=== PATIENT | female | born 1975 | race Caucasian/White ===

== ENCOUNTER → 2021-05-23 09:46 | Outpatient (CLI) | payer MEDICAID, SELFPAY ==
[2021-05-23 12:25] LABS: Absolute Lymphocyte Count 2.35 X10^3/uL (0.83-4.51); Absolute Neutrophil Count 5.3 X10^3/uL (2.0-7.7); Basophil# 0.04 X10^3/uL; Basophil% 0.5 % (0-1); Eosinophil# 0.22 X10^3/uL; Eosinophils% 2.6 % (0-5); Hemoglobin 11.7 g/dL (12.0-15.0); Lymphocyte # 2.35 X10^3/ul (0.83-4.51); Lymphocyte % 27.5 % (19-41); Mean Corpuscular Hgb 25.1 pg (27.0-32.0); Mean Corpuscular Volume 83.5 fL (81-99); Mean Platelet Vol. 10.9 fl (6.2-12.0); Monocyte# 0.64 X10^3/uL; Monocyte% 7.5 % (0-10); NRBC Flagged by Analyzer 0 % (0-5); Neutrophil # 5.26 X10^3/uL (2.7-7.7); Neutrophil % 61.7 % (47-70); Platelet Count 321 K/mm3 (150-450); RBC Distribution Width CV 16.2 % (11.6-14.6); RBC Distribution Width SD 48.7 fl (35.1-43.9); Red Blood Count 4.67 M/mm3 (4.2-5.4); White Blood Count 8.5 K/mm3 (4.4-11.0)
[2021-05-23 12:36] LABS: Vitamin D,25 Hydroxy 57.3 ng/mL
== END ==
PROVIDERS: PCP Internal Medicine; Visit Provider Internal Medicine
DX: E55.9 Vitamin D deficiency, unspecified (principal); E11.9 Type 2 diabetes mellitus without complications
CPT/HCPCS: 36415; 82306; 85025

== ENCOUNTER → 2022-12-27 | Outpatient (CLI) | payer MEDICAID, SELFPAY ==
[2022-12-27 12:48] LABS: Absolute Lymphocyte Count 2.32 X10^3/uL (0.83-4.51); Absolute Neutrophil Count 3.3 X10^3/uL (2.0-7.7); Basophil# 0.04 X10^3/uL; Basophil% 0.6 % (0-1); Eosinophil# 0.22 X10^3/uL; Eosinophils% 3.5 % (0-5); Hematocrit 42.6 % (37-47); Hemoglobin 14.5 g/dL (12.0-15.0); Lymphocyte # 2.32 X10^3/ul (0.83-4.51); Lymphocyte % 36.5 % (19-41); Mean Platelet Vol. 10.5 fl (6.2-12.0); Monocyte# 0.44 X10^3/uL; Monocyte% 6.9 % (0-10); NRBC Flagged by Analyzer 0 % (0-5); Neutrophil # 3.33 X10^3/uL (2.7-7.7); Neutrophil % 52.3 % (47-70); Platelet Count 254 K/mm3 (150-450); RBC Distribution Width SD 41.2 fl (35.1-43.9); Red Blood Count 4.53 M/mm3 (4.2-5.4); White Blood Count 6.4 K/mm3 (4.4-11.0)
[2022-12-27 13:18] LABS: ALB/GLOB Ratio 0.9 RATIO (0.9-2.4); AST(SGOT) 14 U/L (15-37); Alanine Aminotransfer ALT/SGPT 18 U/L (13-56); Albumin, Serum 3.5 g/dL (3.2-5.0); Alkaline Phosphatase 56 U/L (45-117); Anion Gap 7 (5-15); BUN 8 mg/dL (7-18); BUN/Creat Ratio 10.5 RATIO (10-20); Calcium,Total 8.9 mg/dL (8.5-10.1); Chloride 104 mmol/L (98-107); Cholesterol 160 mg/dL (200); Creatinine, Serum 0.76 mg/dL (0.55-1.02); EST Glomerular Filtration Rate 88 mL/min (>60); Est Glom Filt Rate - Afr Amer 106 mL/min (>60); Globulin 3.8 g/dL (2.2-4.2); Glucose 117 mg/dL (74-106); High Density Lipoprotein 60 mg/dL; Potassium 3.7 mmol/L (3.5-5.1); Protein, Total 7.3 g/dL (6.4-8.2); Sodium Level 139 mmol/L (136-145); Triglycerides 118 mg/dL; Very Low Density Lipoprotein 24 mg/dL (5-40)
== END | disposition home or self-care (01) ==
LOC: BIMLAB 11:08
PROVIDERS: PCP Internal Medicine; Referring Provider Internal Medicine; Visit Provider Internal Medicine
DX: E78.5 Hyperlipidemia, unspecified (principal)
CPT/HCPCS: 36415; 80053; 80061; 85025

== ENCOUNTER → 2023-01-02 | Outpatient (CLI) | payer MEDICAID, SELFPAY ==
--- NOTE | 2023-01-02 11:47 | US_ITS ---
STUDY: THYROID ULTRASOUND REASON FOR EXAM: Female, 47 years old. Abnormal imaging TECHNIQUE: Ultrasound evaluation of the thyroid was performed with real-time and static paredes-scale imaging. COMPARISON: None. FINDINGS: RIGHT LOBE: The right lobe of the thyroid gland measures 5.2 x 1.6 x 1.2 cm. There is a homogeneous echotexture. There are no demonstrated solid, cystic or complex lesions. Normal-appearing parathyroid gland is visualized measuring 0.6 x 0.7 cm. LEFT LOBE: The left lobe of the thyroid gland measures 5.1 x 1.7 x 1.2 cm. There is a homogeneous echotexture. There are no demonstrated solid, cystic or complex lesions. ISTHMUS: The isthmus measures 2.4 mm. The regional lymph nodes are normal. US/Thyroid IMPRESSION: 1. Normal ultrasound examination of the thyroid. Electronically Signed: Nik Yo MD at 15:54 EDT ,
== END | disposition home or self-care (01) ==
LOC: US 11:46
PROVIDERS: PCP Internal Medicine; Referring Provider Internal Medicine; Visit Provider Internal Medicine
DX: R59.0 Localized enlarged lymph nodes (principal); R93.89 Abnormal findings on diagnostic imaging of other specified body structures
CPT/HCPCS: 76536

== ENCOUNTER → 2024-01-07 | Outpatient (CLI) | payer MEDICAID, SELFPAY ==
[2024-01-07 12:05] LABS: Absolute Lymphocyte Count 2.03 X10^3/uL (0.83-4.51); Absolute Neutrophil Count 6.9 X10^3/uL (2.0-7.7); Basophil# 0.05 X10^3/uL; Basophil% 0.5 % (0-1); Eosinophil# 0.39 X10^3/uL; Eosinophils% 3.9 % (0-5); Hematocrit 42.8 % (37-47); Hemoglobin 14.2 g/dL (12.0-15.0); Lymphocyte # 2.03 X10^3/ul (0.83-4.51); Lymphocyte % 20.4 % (19-41); Mean Corp Hgb Conc 33.2 g/dL (32-36); Mean Corpuscular Hgb 31.2 pg (27.0-32.0); Mean Corpuscular Volume 94.1 fL (81-99); Mean Platelet Vol. 10.4 fl (6.2-12.0); NRBC Flagged by Analyzer 0 % (0-5); Neutrophil # 6.85 X10^3/uL (2.7-7.7); Neutrophil % 68.9 % (47-70); Platelet Count 290 K/mm3 (150-450); RBC Distribution Width CV 11.9 % (11.6-14.6); RBC Distribution Width SD 41.1 fl (35.1-43.9); Red Blood Count 4.55 M/mm3 (4.2-5.4)
[2024-01-07 12:27] LABS: ALB/GLOB Ratio 0.7 RATIO (0.9-2.4); AST(SGOT) 9 U/L (15-37); Alanine Aminotransfer ALT/SGPT 16 U/L (13-56); Albumin, Serum 3.2 g/dL (3.2-5.0); Alkaline Phosphatase 62 U/L (45-117); Anion Gap 5 (5-15); BUN 11 mg/dL (7-18); BUN/Creat Ratio 13.7 RATIO (10-20); Calcium,Total 9.5 mg/dL (8.5-10.1); Chloride 104 mmol/L (98-107); EST Glomerular Filtration Rate 81 mL/min (>60); Est Glom Filt Rate - Afr Amer 99 mL/min (>60); Globulin 4.3 g/dL (2.2-4.2); Glucose 160 mg/dL (74-106); Potassium 4.4 mmol/L (3.5-5.1); Protein, Total 7.5 g/dL (6.4-8.2); Sodium Level 137 mmol/L (136-145)
== END | disposition home or self-care (01) ==
LOC: BIMLAB 09:42
PROVIDERS: PCP Internal Medicine; Referring Provider Internal Medicine; Visit Provider Internal Medicine
DX: Z00.00 Encounter for general adult medical examination without abnormal findings (principal)
CPT/HCPCS: 36415; 80053; 85025

== ENCOUNTER → 2024-04-07 | Outpatient (CLI) | payer MEDICAID, SELFPAY ==
--- NOTE | 2024-04-07 12:34 | RAD_ITS ---
INDICATION: Cough, Chills and Fever EXAMINATION/TECHNIQUE: X-RAY - XR Chest 2 Views COMPARISON: No relevant prior comparison study available FINDINGS: LINES/DEVICES: None. LUNGS: There is ill-defined airspace disease in the left lung base suggesting pneumonia. MEDIASTINUM AND CARDIOVASCULAR STRUCTURES: Cardiac silhouette not enlarged. Central airways and mediastinal contour are unremarkable. BONES AND SOFT TISSUES: Unremarkable. RAD/Chest PA and Lateral IMPRESSION: Left lower lobe pneumonia. Electronically Signed: Kelly Hernadez MD at 1:17 EST ,
[2024-04-07 15:18] LABS: Absolute Neutrophil Count 8.6 X10^3/uL (2.0-7.7); Basophil# 0.05 X10^3/uL; Basophil% 0.5 % (0-1); Eosinophil# 0.04 X10^3/uL; Eosinophils% 0.4 % (0-5); Hematocrit 43.2 % (37-47); Hemoglobin 14.2 g/dL (12.0-15.0); Lymphocyte % 8.6 % (19-41); Mean Corp Hgb Conc 32.9 g/dL (32-36); Mean Corpuscular Hgb 30.7 pg (27.0-32.0); Mean Corpuscular Volume 93.5 fL (81-99); Mean Platelet Vol. 10.7 fl (6.2-12.0); Monocyte% 7.6 % (0-10); NRBC Flagged by Analyzer 0 % (0-5); Neutrophil # 8.58 X10^3/uL (2.7-7.7); Neutrophil % 81.5 % (47-70); Platelet Count 240 K/mm3 (150-450); RBC Distribution Width CV 12.2 % (11.6-14.6); RBC Distribution Width SD 41.7 fl (35.1-43.9); Red Blood Count 4.62 M/mm3 (4.2-5.4); White Blood Count 10.5 K/mm3 (4.4-11.0)
[2024-04-07 16:07] LABS: ALB/GLOB Ratio 0.7 RATIO (0.9-2.4); AST(SGOT) 11 U/L (15-37); Alanine Aminotransfer ALT/SGPT 20 U/L (13-56); Albumin, Serum 3.3 g/dL (3.2-5.0); Alkaline Phosphatase 77 U/L (45-117); Anion Gap 9 (5-15); BUN 9 mg/dL (7-18); BUN/Creat Ratio 11.6 RATIO (10-20); Chloride 98 mmol/L (98-107); Creatinine, Serum 0.78 mg/dL (0.55-1.02); EST Glomerular Filtration Rate 85 mL/min (>60); Est Glom Filt Rate - Afr Amer 103 mL/min (>60); Globulin 4.5 g/dL (2.2-4.2); Glucose 131 mg/dL (74-106); Potassium 4.2 mmol/L (3.5-5.1); Protein, Total 7.8 g/dL (6.4-8.2); Sodium Level 132 mmol/L (136-145)
== END | disposition home or self-care (01) ==
PROVIDERS: PCP Internal Medicine; Referring Provider Internal Medicine; Visit Provider Internal Medicine
DX: R05.9 Cough, unspecified (principal); R53.83 Other fatigue; R53.81 Other malaise
CPT/HCPCS: 36415; 71046; 80053; 85025

== ENCOUNTER → 2024-08-04 | Outpatient (CLI) | payer MEDICAID, SELFPAY ==
[2024-08-04 10:19] LABS: Mucous, Urine 0 SEEN /hpf (<or=2+)
[2024-08-04 12:44] LABS: Color, Urine Yellow (Yellow); Glucose, Dipstick 1000 mg/dl (Normal); Ketone-Dipstick Negative (Negative); Leukocyte Esterase-Dipstick Negative /ul (Negative); Nitrite-Dipstick Negative (Negative); Occult Blood-Urine 10 /ul (Negative); Protein-Dipstick 30 mg/dl (Negative); Specific Gravity, Urine 1.015 (1.002-1.030); Urine Bilirubin Dipstick Negative (Negative); Urine Clarity Clear (Clear); Urine Urobilinogen Normal (Normal)
[2024-08-04 13:30] LABS: Absolute Lymphocyte Count 2.27 X10^3/uL (0.83-4.51); Absolute Neutrophil Count 4.8 X10^3/uL (2.0-7.7); Basophil# 0.04 X10^3/uL; Basophil% 0.5 % (0-1); Eosinophil# 0.33 X10^3/uL; Eosinophils% 4.1 % (0-5); Hematocrit 42.7 % (37-47); Hemoglobin 14.3 g/dL (12.0-15.0); Lymphocyte # 2.27 X10^3/ul (0.83-4.51); Lymphocyte % 28.4 % (19-41); Mean Corp Hgb Conc 33.5 g/dL (32-36); Mean Corpuscular Hgb 30.6 pg (27.0-32.0); Mean Corpuscular Volume 91.2 fL (81-99); Monocyte# 0.55 X10^3/uL; Monocyte% 6.9 % (0-10); NRBC Flagged by Analyzer 0 % (0-5); Platelet Count 274 K/mm3 (150-450); RBC Distribution Width CV 12.3 % (11.6-14.6); RBC Distribution Width SD 40.9 fl (35.1-43.9); Red Blood Count 4.68 M/mm3 (4.2-5.4)
[2024-08-04 13:39] LABS: Bacteria 1+ /hpf (None Seen); Red Blood Cells-Urine 0 SEEN /hpf (0-5); Squamous Epithelial Cells - UA 0-5 SEEN /hpf (5-10); White Blood Cells 0-5 SEEN /hpf (0-5); Yeast-Urine 1+ /hpf (None Seen)
[2024-08-04 14:17] LABS: Cholesterol 181 mg/dL (<=200); High Density Lipoprotein 52 mg/dL; Low Density Lipoprotein Calc. 100 mg/dL; Triglycerides 148 mg/dL; Very Low Density Lipoprotein 30 mg/dL (5-40); cholesterol:hdl ratio screen 3.51
[2024-08-04 15:09] LABS: ALB/GLOB Ratio 1.2 RATIO (0.9-2.4); AST(SGOT) 18 U/L (<=31); Alanine Aminotransfer ALT/SGPT 13 U/L (<=34); Alkaline Phosphatase 64 U/L (35-104); Anion Gap 15 (5-15); BUN 11 mg/dL (4-19); BUN/Creat Ratio 14.2 RATIO (10-20); Calcium 9.3 mg/dL (7.6-11.0); Chloride 103 mmol/L (96-108); Creatinine, Serum 0.76 mg/dL (0.70-1.20); EST Glomerular Filtration Rate 97 (>60); Globulin 3.4 g/dL (2.2-4.2); Glucose 188 mg/dL (70-99); Potassium 4.3 mmol/L (3.3-5.1); Protein, Total 7.4 g/dL (5.9-8.4); Sodium Level 137 mmol/L (133-145); Total Bilirubin 0.33 mg/dL (0.00-1.30)
== END | disposition home or self-care (01) ==
LOC: BIMLAB 10:14
PROVIDERS: PCP Internal Medicine; Visit Provider Internal Medicine
DX: E78.2 Mixed hyperlipidemia (principal); E11.69 Type 2 diabetes mellitus with other specified complication; Z79.4 Long term (current) use of insulin
CPT/HCPCS: 36415; 80053; 80061; 81001; 85025

== ENCOUNTER 2024-11-19 10:15 | Inpatient (IN) | payer MEDICAID, SELFPAY ==
[2024-11-19] VITALS (9 sets, daily range): BP systolic 129–167; BP diastolic 83–109; PULSE 88–99; RESP 12–18; TEMP 35.4–36.9; O2SAT 97–100; BMI 37.2; BMI 37.4
--- NOTE | 2024-11-19 10:23 | ED.VIS.CHEST ---
HPI History of Present Illness Chief Complaint: Chest Pain Informant: patient Onset/Context/Timing Onset: Yesterday Activity at onset: gradual Timing: Continuous Quality: Positive for Burning Location: Substernal Worsened By: - (Laying on her back and right side) Relieved By: - (Laying on left side) Associated Symptoms: Positive for Acid Reflux; Negative for Nausea, Vomiting, Diaphoresis, Dyspnea, Cough, Fever, Lightheadedness or Palpitations Narrative Narrative: Patient presents with chest pain that began yesterday. Patient states it came on gradually. Patient describes it as a burning sensation. Patient states it is mainly over the substernal area but radiates into her throat and into her back. Patient states it is worse when she lays on her back and on her right side. Patient states it is better when she lays on her left side. Patient denies any nausea or vomiting. Patient denies any diaphoresis. Patient denies any shortness of breath or cough. Patient denies any lightheadedness or dizziness. Patient admits to recent travel. CVD Risk Factors: Positive for Diabetes, Hypercholesterolemia and Family History 1' </=55; Negative for Hypertension or Smoking PE Risk Factors: Positive for Recent Travel/Surgery; Negative for Recent Immobilization, Prior DVT or PE or Cancer [facility] Medical History Rib pain on left side Stress incontinence Malaise and fatigue Cough Cold extremities Colon cancer screening Preventative health care Bruxism Generalized anxiety disorder Musculoskeletal back pain Perimenopausal Hyperlipidemia Type 2 diabetes mellitus Vitamin D deficiency Arrhythmia Abnormal thyroid ultrasound Cervical adenopathy History of COVID-19 Anxiety Hyperlipemia Gastroparesis Diabetes GERD (gastroesophageal reflux disease) Home Medications ?Medication ?Instructions ?Recorded ?Last Taken ?Type ascorbate calcium (vitamin C) 500 500 mg PO DAILY 05/23/21 Unknown History mg tablet canagliflozin 100 mg tablet 100 mg PO DAILY 05/23/21 Unknown History (Invokana) cholecalciferol (vitamin D3) 25 25 mcg PO DAILY 05/23/21 Unknown History mcg (1,000 unit) capsule metformin 1,000 mg tablet 1,000 mg PO BID 05/23/21 Unknown History pravastatin 10 mg tablet 10 mg PO QHS 05/23/21 Unknown History zinc 50 mg tablet 50 mg PO DAILY 05/23/21 Unknown History multivitamin 1 tab PO DAILY 07/02/23 Unknown History baclofen 10 mg tablet See Rx Instructions .Route 07/31/23 Unknown Rx .COMPLEX #90 tabs albuterol sulfate 90 mcg/actuation 2 puff inhalation Q6H PRN 04/28/24 Unknown Rx aerosol inhaler shortness of breath or wheezing #8.5 grams dulaglutide 3 mg/0.5 mL 3 mg subcut QWEEK Diabetes 08/04/24 Unknown History subcutaneous pen injector (Trulicity) omeprazole 40 mg capsule,delayed 40 mg PO DAILY #90 caps 08/04/24 Unknown Rx release Allergy/AdvReac Type Severity Reaction Status Date / Time amoxicillin (From Augmentin) Allergy Severe rash Verified 11/19/24 10:16 clavulanic acid (From Allergy Severe rash Verified 11/19/24 10:16 Augmentin) Penicillins Allergy Severe Rash Verified 11/19/24 10:16 lisinopril AdvReac Unknown unknown Verified 11/19/24 10:16 Family History Father Graves disease Myocardial infarction Heart disease Diabetes CVA (cerebral vascular accident) Mother Diabetes Surgical History History of surgical removal of lesion History of tonsillectomy History of back surgery Social History Smoking Status: Never smoker alcohol intake: current alcohol intake frequency: holidays/special occasions only substance use type: does not use what type of physical activity do you participate in: none EXAM Physical Exam Const Vital Signs: 11/19/24 10:15 11/19/24 10:47 11/19/24 12:15 Temperature 97.2 F L Temperature Source Temporal Pulse Rate 97 99 Respiratory Rate 14 12 Blood Pressure 164/100 H 167/109 H Blood Pressure Mean 121 128 Pulse Ox 100 100 Oxygen Delivery Method Room Air Room Air MDM MDM MDM Narrative Medical decision making narrative: Differential diagnosis includes cardiac dysrhythmia, cardiac ischemia, pneumonia, bronchitis, gastroesophageal reflux disease, musculoskeletal pain, and anxiety. EKG will be obtained to assess for cardiac dysrhythmia and cardiac ischemia. Chest x-ray will be obtained to assess for pneumonia and bronchitis. CBC will be obtained to assess for leukocytosis and anemia. Basic metabolic profile will be obtained to assess for electrolyte abnormality and renal function. High-sensitivity troponin will be obtained to assess for cardiac ischemia. 2-hour repeat high-sensitivity troponin will be obtained to assess for ongoing cardiac ischemia. History & Record Review Additional record(s) reviewed:: Prior outpatient record and Prior labs Lab Data Attestation: I reviewed the patient's lab results. Lab results narrative: CBC was reviewed and was within normal limits. Basic metabolic profile was reviewed. Glucose was slightly elevated at 176. Initial high-sensitivity troponin was reviewed and was elevated at 204. Labs: Laboratory Results - last 24 hr 11/19/24 11:07 WBC 8.5 RBC 4.75 Hgb 14.7 Hct 42.3 MCV 89.1 MCH 30.9 MCHC 34.8 RDW Std Deviation 39.5 RDW Coeff of Jacob 12.1 Plt Count 257 MPV 10.2 Immature Gran % (Auto) 0.400 Neut % (Auto) 69.3 Lymph % (Auto) 21.3 [place] % (Auto) 6.5 Eos % (Auto) 2.0 Baso % (Auto) 0.5 Absolute Neuts (auto) 5.9 Absolute Lymphs (auto) 1.81 Nucleated RBC % 0 Sodium 137 Potassium 4.2 Chloride 101 Carbon Dioxide 24.0 Anion Gap 12 BUN 9 Creatinine 0.80 Estim Creat Clear Calc 109.96 Est GFR (MDRD) Non-Af 92 BUN/Creatinine Ratio 11.5 Glucose 176 H Calcium 9.2 Troponin T High Sens 204 H* HCG, Quant Cancelled Serum , Qual Cancelled Radiography Chest X-Ray - ED: 1 View, Read by ED Physician, Read by Radiologist and No Acute Disease Diagnostic Testing: Clinical Impression(s) from Imaging Studies Chest X-Ray 11/19/24 10:47 IMPRESSION: No radiographic evidence of an acute cardiopulmonary process. Reading Location: [facility] Portable 1 view chest x-ray was obtained. On my independent interpretation, lung lopez are clear. There is normal cardiac silhouette. Bony thorax is normal. There is no acute process noted. Radiologist also interpreted the x-ray and agrees. EKG Initial EKG: Attestation: I personally reviewed and interpreted this EKG as follows: Interpretation: Sinus Rhythm (93) and No Acute Injury Pattern Comments: EKG was obtained. On my independent interpretation, it showed a normal sinus rhythm with a rate of 93. CT interval, QRS interval, and QTc intervals were all normal. Wiggins was normal. There are no acute ST or T wave changes. Prior EKG tracings: not available for review Prior: No Prior Management Discussion w/another healthcare provider: Hospitalist (Dr. Esteban) and Architecture Internship (Dr. Castillo) Treatment and Re-Evaluation :: Patient was given aspirin and a GI cocktail. Patient had no pain here in the emergency department. Patient was advised of her findings. Case was discussed with the hospitalist. He will admit the patient to his service. He recommended consulting cardiology. Case was discussed with Dr. Castillo. He will take the patient to the [facility] this afternoon. Patient was maintained NPO. Patient understood and was agreeable with the plan. All questions were answered. Critical Care Time Critical Care Time: Yes Critical care time (excluding procedures): 30-74 minutes (34), Including time spent:, Discussing w/Patient &/or Family/Mold Maker Plaster, Discussing w/Consultants, Arranging Admission or Transfer and Performing Direct Patient Care at Bedside Discharge Plan Dx/Rx/DC Orders Clinical Impression: Non-STEMI (non-ST elevated myocardial infarction), Hyperlipidemia, Diabetes Disposition Disposition: Acute Care Hospital [facility] Discharge Date/Time: 11/19/24 13:21
--- NOTE | 2024-11-19 10:47 | RAD_ITS ---
PROCEDURE: CHEST 1 VIEW (PORTABLE) 11/19/2024 REASON FOR EXAM: CHEST PAIN TECHNIQUE: Frontal view of the chest. COMPARISON: Chest radiograph 04/07/2024 FINDINGS: Hardware: None. Heart: Normal size. Lungs: Clear. No pleural effusions. No pneumothorax. Bones: No aggressive bone lesions identified. Other: RAD/Chest 1 View (Portable) IMPRESSION: No radiographic evidence of an acute cardiopulmonary process. Reading Location: [facility]
--- NOTE | 2024-11-19 10:47 | EKG12_ITS ---
Test Reason : CP Blood Pressure : */* mmHG Vent. Rate : 93 BPM Atrial Rate : 93 BPM P-R Int : 144 ms QRS Dur : 88 ms QT Int : 346 ms P-R-T Axes : 49 4 67 degrees QTcB Int : 430 ms Normal sinus rhythm Normal ECG Confirmed by ANNAMARIE PATEL, WYATT ([id number]), book editor DANELLE CLIFTON ([id number]) on 11/21/2024 12:59:00 PM Referred By: Sheldon Esteban Confirmed By: WYATT DE LUNA MD
[2024-11-19] MEDS: Aspirin 81 MG TAB.CHEW 324 MG PO (11:03)
[2024-11-19] MEDS: Lidocaine 2% Viscous15 ML UDC 15 ML PO (11:04)
[2024-11-19] MEDS: Mag Hydrox/Al Hydrox/Simeth 30 ML UDC PO (11:04)
[2024-11-19 11:16] LABS: Absolute Lymphocyte Count 1.81 X10^3/uL (0.83-4.51); Absolute Neutrophil Count 5.9 X10^3/uL (2.0-7.7); Basophil# 0.04 X10^3/uL; Basophil% 0.5 % (0-1); Eosinophil# 0.17 X10^3/uL; Hematocrit 42.3 % (37-47); Hemoglobin 14.7 g/dL (12.0-15.0); Lymphocyte # 1.81 X10^3/ul (0.83-4.51); Lymphocyte % 21.3 % (19-41); Mean Corp Hgb Conc 34.8 g/dL (32-36); Mean Corpuscular Hgb 30.9 pg (27.0-32.0); Mean Corpuscular Volume 89.1 fL (81-99); Mean Platelet Vol. 10.2 fl (6.2-12.0); Monocyte# 0.55 X10^3/uL; Monocyte% 6.5 % (0-10); NRBC Flagged by Analyzer 0 % (0-5); Neutrophil # 5.89 X10^3/uL (2.7-7.7); Neutrophil % 69.3 % (47-70); Platelet Count 257 K/mm3 (150-450); RBC Distribution Width CV 12.1 % (11.6-14.6); RBC Distribution Width SD 39.5 fl (35.1-43.9); Red Blood Count 4.75 M/mm3 (4.2-5.4); White Blood Count 8.5 K/mm3 (4.4-11.0)
[2024-11-19 12:01] LABS: Anion Gap 12 (5-15); BUN 9 mg/dL (4-19); BUN/Creat Ratio 11.5 RATIO (10-20); Calcium,Total 9.2 mg/dL (7.6-11.0); Chloride 101 mmol/L (98-108); EST Glomerular Filtration Rate 92 (>60); Estimated Creatinine Clearance 109.96 ml/min (50-250); Glucose 176 mg/dL (70-99); Potassium 4.2 mmol/L (3.3-5.1); Sodium Level 137 mmol/L (133-145); Troponin T High Sensitivity 204 ng/L (<=14)
--- NOTE | 2024-11-19 12:30 | HP.PCM.HOS_ITS ---
HPI - General General Date of Admission: 11/19/24 Date of Service: 11/19/24 Chief Complaint: Burning kind of chest pain with exertion yesterday HPI Narrative CARA CORTES, is a 49 F with multiple comorbidities came to ED with burning chest pain when she went on the treadmill yesterday that relieved with the rest. It was left-sided rib area, inframammary pain and sometimes it felt like going to her left jaw/clenching sensation. Furthermore, she said she had intermittent left-sided burning kind of chest pain for 6 to 8 months and saw her PCP for risk factors control including diabetes and cholesterol but did not had a stress test. In ED, twelve-lead EKG was done which is normal at 93 bpm, no significant ST-T changes. First troponin was high therefore taken directly to the [facility]. Risk factors: Morbid obesity, DM type II, dyslipidemia and family history of her father has cardiac disease and bypass surgery. She denies diagnosis of hypertension per her blood pressure was elevated [facility] Medical History Rib pain on left side Stress incontinence Malaise and fatigue Cough Cold extremities Colon cancer screening Preventative health care Bruxism Generalized anxiety disorder Musculoskeletal back pain Perimenopausal Hyperlipidemia Type 2 diabetes mellitus Vitamin D deficiency Arrhythmia Abnormal thyroid ultrasound Cervical adenopathy History of COVID-19 Anxiety Hyperlipemia Gastroparesis Diabetes GERD (gastroesophageal reflux disease) Home Medications ?Medication ?Instructions ?Recorded ?Last Taken ?Type ascorbate calcium (vitamin C) 500 500 mg PO DAILY 05/05 Unknown History mg tablet canagliflozin 100 mg tablet 100 mg PO DAILY 05/23/21 U nknown History (Invokana) cholecalciferol (vitamin D3) 25 25 mcg PO DAILY Unknown History mcg (1,000 unit) capsule metformin 1,000 mg tablet 1,000 mg PO BID 05/23/21 Unk nown History pravastatin 10 mg tablet 10 mg PO QHS 05/23/21 Unknow n History zinc 50 mg tablet 50 mg PO DAILY 05/23/21 Unkn own History multivitamin 1 tab PO DAILY 07/02/23 Unkn own History baclofen 10 mg tablet See Rx Instructions .Route 0 07/31/23 Unknown Rx .COMPLEX #90 tabs albuterol sulfate 90 mcg/actuation 2 puff inhalation Q 6H PRN 11/25/24 Unknown Rx aerosol inhaler shortness of breath or wheez ing #8.5 grams dulaglutide 3 mg/0.5 mL 3 mg subcut QWEEK Diabetes 0 08/04/24 Unknown History subcutaneous pen injector (Trulicity) omeprazole 40 mg capsule,delayed 40 mg PO DAILY #90 ca ps 08/04/24 Unknown Rx release Allergy/AdvReac Type Severity Reaction Status Date / Time amoxicillin (From Augmentin) Allergy Severe rash Verified 11/19/24 10:16 clavulanic acid (From Allergy Severe rash Verified 11/19/24 10:16 Augmentin) Penicillins Allergy Severe Rash Verified 11/19/24 10:16 lisinopril AdvReac Unknown unknown Verified 11/19/24 10:16 Family History Father Graves disease Myocardial infarction Heart disease Diabetes CVA (cerebral vascular accident) Mother Diabetes Surgical History History of surgical removal of lesion History of tonsillectomy History of back surgery Social History Smoking Status: Never smoker alcohol intake: current alcohol intake frequency: holidays/special occasions only substance use type: does not use what type of physical activity do you participate in: none ROS ROS Narrative Constitutional: Reports fatigue and weakness. No fever. HEENT: Reports systems reviewed and no addt'l complaints, except as documented Respiratory/Chest: No acute shortness of breath or respiratory distress or wheezing. CVS: As described in HPI Gastrointestinal: Intermittent burning kind of lower left-sided chest pain. Denies coffee ground emesis, hematemesis or vomiting Genitourinary: Denies burning urination or new urinary tract symptoms Musculoskeletal: Denies acute joint pain or limited range of motion. No acute injury Neurologic: Denies seizure-like symptoms. skin: No ulcer. No rash Endocrinology: On Mounjaro, and other medications for diabetes melitis type II. Obesity. Reports systems reviewed and no addt'l complaints, except as documented Hematologic/Lymphatic: Reports systems reviewed and no addt'l complaints, except as documented Rest 14 ROS are negative except as mentioned in HPI Vital Signs Vital Signs Vital Signs: 11/19/24 10:15 11/19/24 10:47 11/19/24 12:15 Temperature 97.2 F L Temperature Source Temporal Pulse Rate 97 99 Respiratory Rate 14 12 Blood Pressure 164/100 H 167/109 H Blood Pressure Mean 121 128 Pulse Ox 100 100 Oxygen Delivery Method Room Air Room Air Weight Weight: 237 lb 14.06 oz Body Mass Index (BMI) 37.2 Physical Exam Narrative General: Alert, Oriented x3, Cooperative. BMI 37.3 kg/m?, 237 pounds. Obesity grade 3 HEENT: Atraumatic, PERRLA, EOMI, Normocephalic. Oral: No Gingival or Mucosal Lesions/ Ulcerations Neck: Supple, No JVD, Negative Carotid Bruits Chest wall/Lungs: Air entry diminished in bilateral lung bases. No crepitation/rhonchi Cardiovascular: Regular rate and rhythm, Normal S1,S2, No M/G/R Abdomen: Bowel Sounds Present, Soft, Non Tender, Non-Distended : No dysuria. No renal angle tenderness. No suprapubic tenderness. Extremities: No edema, Capillary Refill Less than 3 Seconds Skin: No rashes, No breakdown Musculoskeletal: No Tenderness to Palpation of Joints or Extremities Neurological: Cranial nerves II-XII grossly intact, DTR 2+/4. No acute focal neurological deficit. Psych/Mental Status: Normal Affect, Appropriate. Results Lab / Micro Data 11/19/24 11:07 11/19/24 11:07 Labs: Laboratory Results - last 24 hr 11/19/24 11:07: WBC 8.5, RBC 4.75, Hgb 14.7, Hct 42.3, MCV 89.1, MCH 30.9, MCHC 34.8, RDW Std Deviation 39.5, RDW Coeff of Jacob 12.1, Plt Count 257, MPV 10.2, Immature Gran % (Auto) 0.400, Neut % (Auto) 69.3, Lymph % (Auto) 21.3, [place] % (Auto) 6.5, Eos % (Auto) 2.0, Baso % (Auto) 0.5, Absolute Neuts (auto) 5.9, Absolute Lymphs (auto) 1.81, Nucleated RBC % 0, Sodium 137, Potassium 4.2, Chloride 101, Carbon Dioxide 24.0, Anion Gap 12, BUN 9, Creatinine 0.80, Estim Creat Clear Calc 109.96, Est GFR (MDRD) Non-Af 92, BUN/Creatinine Ratio 11.5, G lucose 176 H, Calcium 9.2, Troponin T High Sens 204 H* Imaging Radiology Impression Chest X-Ray 11/19/24 10:47 IMPRESSION: No radiographic evidence of an acute cardiopulmonary process. [facility] Assessment & Plan Assessment/Plan (1) Non-STEMI (non-ST elevated myocardial infarction): PLAN: Plan This 49 old female is being admitted for atypical left-sided chest pain burning in quality and high troponin. 1. Non-STEMI, triple-vessel disease CAD on cardiac cath: Patient was initially taken to [facility] and then admitted in PCU. First troponin 204, second 283. Twelve-lead EKG normal. Discussed with the parts interpreter verbally regarding cardiac cath finding and it is triple-vessel CAD. Official cardiac cath report pending. Drafter Refrigeration discussed with the cath finding and the patient and patient is accepted for transfer to [facility] For evaluation of CABG. 2D echo is not ordered as patient might soon go to [facility] and can be done there. Carvedilol restarted. Allergic to lisinopril. High intensity statin. 2. Diabetes mellitus type 2: Patient on Invokana, metformin, Trulicity. She stated that she was on Ozempic and probably on Mounjaro without does not show up on her med list. Hold these medications. Accu-Chek before meals and at bedtime with Humalog sliding scale coverage and hypoglycemia protocol. Lantus 8 units subcutaneous daily ordered. A1c ordered for tomorrow a.m. 3. Dyslipidemia: Fasting lipid profile ordered. Atorvastatin 40 mg daily ordered. 4. Obesity grade 3: BMI 37.3 kg/m? with multiple comorbidities. Patient on GLP-1 agonist. 5. High blood pressure: Patient denies diagnosis of hypertension and she is not on antihypertensive medication. BP 152/95, elevated. Monitor BP. Carvedilol is ordered. Labetalol as needed for SBP more than 180 mmHg. 6. Other comorbidities include possible GERD and generalized anxiety disease: Home medication reconciliation done. On PPI. Living will/advanced directive/end of life care: Patient does not have living will or advanced directive. She does not have regular power of pull tab dealer for health. After discussion of benefits/risks procedures involved with full code, DNR CC arrest and DNR CC, the patient and her fianc? opted for full code. Patient does want artificial life support including intubation, tube feed, ventilator and/chest compression, central venous catheter, vasopressor and DC shock if needed Total time spent in [id number] encounter in discussion of advanced directive 17 minutes. Laboratory Results 11/19/24 11:07: WBC 8.5, RBC 4.75, Hgb 14.7, Hct 42.3, MCV 89.1, MCH 30.9, MCHC 34.8, RDW Std Deviation 39.5, RDW Coeff of Jacob 12.1, Plt Count 257, MPV 10.2, Immature Gran % (Auto) 0.400, Neut % (Auto) 69.3, Lymph % (Auto) 21.3, [place] % (Auto) 6.5, Eos % (Auto) 2.0, Baso % (Auto) 0.5, Absolute Neuts (auto) 5.9, Absolute Lymphs (auto) 1.81, Nucleated RBC % 0, Sodium 137, Potassium 4.2, Chloride 101, Carbon Dioxide 24.0, Anion Gap 12, BUN 9, Creatinine 0.80, Estim Creat Clear Calc 109.96, Est GFR (MDRD) Non-Af 92, BUN/Creatinine Ratio 11.5, G lucose 176 H, Calcium 9.2, Troponin T High Sens 204 H*, HCG, Quant Cancelled, Serum , Qual Cancelled 11/19/24 13:15: Magnesium 2.0, Troponin T Hi Sens 2 Hr 283 H*, Serum , Qual NEGATIVE Clinical Impression(s) from Imaging Studies Chest X-Ray 11/19/24 10:47 IMPRESSION: No radiographic evidence of an acute cardiopulmonary process. Reading [facility] Charges/Coding Visit Charges Inpatient E&M: 96535 Init Hosp L3 Procedures Hospitalists Procedures: 40161 Advncd Care Plan 30 Min
--- NOTE | 2024-11-19 13:07 | PCM.CONS.C ---
Assessment & Plan Assessment/Plan (1) NSTEMI (non-ST elevated myocardial infarction): PLAN: The patient presents with chest discomfort suggestive of angina with exertion and abnormal cardiac enzyme pattern. My recommendation at this time would be to evaluate her with an invasive approach and see whether there is any obstructive coronary disease. Depending on the findings further recommendations will be made. The risk benefits alternatives of an explained to her she understands and agrees to proceed. Patient will be started on aspirin Continue with statin PLAN: Plan Patient will be transported to the cardiac catheterization lab for a cardiac catheterization. HPI Consult Data Date of Consult: 11/19/24 HPI Narrative HPI Narrative: CARA CORTES, is a 49 F who presents to the emergency room with chest discomfort described as a heaviness. She says that this started few days ago when she was on the treadmill and she felt a heavy sensation across her chest. She does not have a history of hypertension but has diabetes. She said when she discontinued the exercise the feeling went away. The next day a similar thing happened. She therefore presented to the emergency room she was noted to be mildly hypertensive her EKG did not demonstrate any significant abnormalities but cardiac enzymes were abnormal cardiology was called for evaluation and management. She does not use energy drinks and vaping but no alcohol. [facility] Medical History Rib pain on left side Stress incontinence Malaise and fatigue Cough Cold extremities Colon cancer screening Preventative health care Bruxism Generalized anxiety disorder Musculoskeletal back pain Perimenopausal Hyperlipidemia Type 2 diabetes mellitus Vitamin D deficiency Arrhythmia Abnormal thyroid ultrasound Cervical adenopathy History of COVID-19 Anxiety Hyperlipemia Gastroparesis Diabetes GERD (gastroesophageal reflux disease) Home Medications ?Medication ?Instructions ?Recorded ?Last Taken ?Type ascorbate calcium (vitamin C) 500 500 mg PO DAILY 05/23/21 Unknown History mg tablet canagliflozin 100 mg tablet 100 mg PO DAILY 05/23/21 Unknown History (Invokana) cholecalciferol (vitamin D3) 25 25 mcg PO DAILY 05/23/21 Unknown History mcg (1,000 unit) capsule metformin 1,000 mg tablet 1,000 mg PO BID 05/23/21 Unknown History pravastatin 10 mg tablet 10 mg PO QHS 05/23/21 Unknown History zinc 50 mg tablet 50 mg PO DAILY 05/23/21 Unknown History multivitamin 1 tab PO DAILY 07/02/23 Unknown History baclofen 10 mg tablet See Rx Instructions .Route 07/31/23 Unknown Rx .COMPLEX #90 tabs albuterol sulfate 90 mcg/actuation 2 puff inhalation Q6H PRN 04/28/24 Unknown Rx aerosol inhaler shortness of breath or wheezing #8.5 grams dulaglutide 3 mg/0.5 mL 3 mg subcut QWEEK Diabetes 08/04/24 Unknown History subcutaneous pen injector (Trulicity) omeprazole 40 mg capsule,delayed 40 mg PO DAILY #90 caps 08/04/24 Unknown Rx release Allergy/AdvReac Type Severity Reaction Status Date / Time amoxicillin (From Augmentin) Allergy Severe rash Verified 11/19/24 10:16 clavulanic acid (From Allergy Severe rash Verified 11/19/24 10:16 Augmentin) Penicillins Allergy Severe Rash Verified 11/19/24 10:16 lisinopril AdvReac Unknown unknown Verified 11/19/24 10:16 Family History Father Graves disease Myocardial infarction Heart disease Diabetes CVA (cerebral vascular accident) Mother Diabetes Surgical History History of surgical removal of lesion History of tonsillectomy History of back surgery Social History Smoking Status: Never smoker alcohol intake: current alcohol intake frequency: holidays/special occasions only substance use type: does not use what type of physical activity do you participate in: none ROS Constitutional Constitutional: Denies fever(s) or weight loss Eyes Eyes: Reports systems reviewed and no addt'l complaints, except as documented ENT HEENT: Reports systems reviewed and no addt'l complaints, except as documented Cardiovascular Cardiovascular: Reports chest pain at rest, chest pain with activity and dyspnea on exertion; Denies dyspnea at rest, edema, palpitations or paroxysmal nocturnal dyspnea Respiratory/Chest Respiratory/Chest: Denies dyspnea on exertion, productive cough, shortness of breath at rest or shortness of breath with exertion Gastrointestinal Gastrointestinal: Denies change in bowel habits, nausea, vomiting or weight changes Genitourinary Genitourinary: Denies difficulty urinating Musculoskeletal Musculoskeletal: Denies joint stiffness or muscle weakness Integumentary Integumentary: Denies lesions Neurologic Neurologic: Denies dizziness or syncope Psychiatric Psychiatric: Denies anxiety Endocrine Endocrinology: Denies excessive sweating or fatigue Hematologic/Lymphatic Hematologic/Lymphatic: Denies anemia Allergic/Immunologic Allergic/Immunologic: Denies seasonal rhinorrhea Physical Exam Const alert, oriented x3 and no apparent distress General Appearance: cooperative HEENT hearing grossly normal bilaterally Head and Scalp: atraumatic Eyes EOMs intact bilaterally Neck General: normal visual inspection Chest inspection of chest normal and palpation of chest normal Resp normal respiratory effort Auscultation: clear to auscultation bilaterally Cardio regular rate, regular rhythm, S1 normal heart sound and S2 normal heart sound Jugular Venous Distention: JVD GI normal to inspection, nondistended, normoactive bowel sounds Extremity normal capillary refill and no pedal edema Peripheral Pulses: Yes pulses 2+ throughout and femoral pulses present Skin no rashes or lesions noted Neuro oriented x3 and CN's II-XII intact bilaterally Psych Appearance: grossly normal and appropriate Risk Stratification Risk Stratification Applicable: Yes Age >/= 65: No >/= 3 CAD Risk Factors (HTN, HLD, DM, family hx of CAD, or current smoker): No Aspirin Use in the Past 7 Days: No Severe Angina (>/= episodes in 24 hours): No EKG ST Changes >/= 0.5mm: No Positive Cardiac Marker: Yes CIARRA Risk Stratification Score: 1 CIARRA % Risk: 5% Risk Objective Data Vital Signs: Vital Signs Temp Pulse Resp BP Pulse Ox O2 Del Method 98.3 F 88 14 153/98 H 100 Room Air 11/19/24 12:45 11/19/24 12:45 11/19/24 12:45 11/19/24 12:45 11/19/24 12:45 11/19/24 10:47 Oxygen Delivery Method Room Air Weight: 237 lb 14.06 oz Body Mass Index (BMI) 37.2 Lab / Micro Data 11/19/24 11:07 11/19/24 11:07 Labs: Laboratory Results - last 24 hr 11/19/24 11:07: WBC 8.5, RBC 4.75, Hgb 14.7, Hct 42.3, MCV 89.1, MCH 30.9, MCHC 34.8, RDW Std Deviation 39.5, RDW Coeff of Jacob 12.1, Plt Count 257, MPV 10.2, Immature Gran % (Auto) 0.400, Neut % (Auto) 69.3, Lymph % (Auto) 21.3, Levy % (Auto) 6.5, Eos % (Auto) 2.0, Baso % (Auto) 0.5, Absolute Neuts (auto) 5.9, Absolute Lymphs (auto) 1.81, Nucleated RBC % 0, Sodium 137, Potassium 4.2, Chloride 101, Carbon Dioxide 24.0, Anion Gap 12, BUN 9, Creatinine 0.80, Estim Creat Clear Calc 109.96, Est GFR (MDRD) Non-Af 92, BUN/Creatinine Ratio 11.5, Glucose 176 H, Calcium 9.2, Troponin T High Sens 204 H* Cardiology Labs/Tests 11/19/24 11:07: WBC 8.5, RBC 4.75, Hgb 14.7, Hct 42.3, MCV 89.1, MCH 30.9, MCHC 34.8, Plt Count 257, MPV 10.2, Immature Gran % (Auto) 0.400, Neut % (Auto) 69.3, Lymph % (Auto) 21.3, Levy % (Auto) 6.5, Eos % (Auto) 2.0, Baso % (Auto) 0.5, Absolute Neuts (auto) 5.9, Nucleated RBC % 0, Sodium 137, Potassium 4.2, Chloride 101, Carbon Dioxide 24.0, Anion Gap 12, BUN 9, Creatinine 0.80, Est GFR (MDRD) Non-Af 92, BUN/Creatinine Ratio 11.5, Glucose 176 H, Calcium 9.2 Rhythm: EKG: ECHO: Stress Test: Cardiac Cath: PCI: CT Surgery: Holter monitor: EPS: PPM: CXR: Chest CT Scan: Radiography Diagnostic Testing: Radiology Impression Chest X-Ray 11/19/24 10:47 IMPRESSION: No radiographic evidence of an acute cardiopulmonary process. Reading Location: [facility]
[2024-11-19 13:40] LABS: Internal QC Validated? YES +Cl - CLEAR BKGD; Pregnancy, Serum, hCG Quali. NEGATIVE Negative
[2024-11-19 13:53] LABS: Troponin T High Sens 2 HR 283 ng/L (<=14)
--- NOTE | 2024-11-19 14:34 | EKG12_ITS ---
Test Reason : cp admit Blood Pressure : */* mmHG Vent. Rate : 89 BPM Atrial Rate : 89 BPM P-R Int : 154 ms QRS Dur : 90 ms QT Int : 370 ms P-R-T Axes : 32 2 97 degrees QTcB Int : 450 ms Normal sinus rhythm Abnormal QRS-T angle, consider primary T wave abnormality Abnormal ECG When compared with ECG of 19-Nov-2024 10:27, MANUAL COMPARISON REQUIRED DATA IS UNCONFIRMED Confirmed by ANNAMARIE PATEL, WYATT ([id number]), newspaper editor managing DANELLE CLIFTON ([id number]) on 11/21/2024 1:04:22 PM Referred By: Sheldon Esteban Confirmed By: WYATT DE LUNA MD
[2024-11-19] MEDS: 0.9% Normal Saline (1000mL) 1,000 ML 75 ML IV (18:12)
[2024-11-19] MEDS: amLODIPine 5 MG Tablet PO (18:12)
[2024-11-19] MEDS: Baclofen 10 MG Tablet PO (20:51)
[2024-11-19] MEDS: Atorvastatin Calcium 40 MG Tablet PO (20:51)
[2024-11-19] MEDS: Carvedilol 6.25 MG Tablet PO (20:51)
[2024-11-19] MEDS: Acetaminophen 500 MG Tablet 1000 MG PO (21:02)
[2024-11-19 21:21] LABS: Bedside Glucose 139 mg/dL (74-106)
--- NOTE | 2024-11-20 07:12 | DS.PCM_ITS ---
Providers Date of Admission: 11/19/24 Date of Discharge: 11/19/24 Primary Care Physician: Dr. Britney Donaldson MD Consultations 11/19/24 15:20 Consult: Cardiology Urgent Consulting Provider: Niraj Castillo Reason for Consult: Chest Pain/NSTEMI EMERGENT Consult: No MD Notified: Yes Date Notified: 11/19/24 Time Notified: 15:20 Method of Notification: ED Physician Initiated Reason For Visit: CHEST PAIN Diagnosis Discharge Diagnosis (1) Non-STEMI (non-ST elevated myocardial infarction): Status: Acute Code(s): I21.4 - Non-ST elevation (NSTEMI) myocardial infarction Plan This 49 old female is being admitted for atypical left-sided chest pain burning in quality and high troponin. 1. Non-STEMI, triple-vessel disease CAD on cardiac cath: Patient was initially taken to [facility] and then admitted in PCU. First troponin 204, second 283. Twelve-lead EKG normal. Discussed with the gunner mate verbally regarding cardiac cath finding and it is triple-vessel CAD. Official cardiac cath report pending. Laboratory Technical Specialist discussed with the cath finding and the patient and patient is accepted for transfer to [facility] For evaluation of CABG. 2D echo is not ordered as patient might soon go to [facility] and can be done there. Carvedilol restarted. Allergic to lisinopril. High intensity statin. 11/19: Patient on guideline medical therapy for non-STEMI baby aspirin, atorvastatin. Patient allergic to lisinopril. About 10 PM patient got transferred to the [facility]. 2. Diabetes mellitus type 2: Patient on Invokana, metformin, Trulicity. She stated that she was on Ozempic and probably on Mounjaro without does not show up on her med list. Hold these medications. Accu-Chek before meals and at bedtime with Humalog sliding scale coverage and hypoglycemia protocol. Lantus 8 units subcutaneous daily ordered. A1c ordered for tomorrow a.m. 11/19, blood pressure significantly controlled, glucose 139. 3. Dyslipidemia: Fasting lipid profile ordered. Atorvastatin 40 mg daily ordered. 4. Obesity grade 3: BMI 37.3 kg/m? with multiple comorbidities. Patient on GLP-1 agonist. 5. High blood pressure: Patient denies diagnosis of hypertension and she is not on antihypertensive medication. BP 152/95, elevated. Monitor BP. Carvedilol is ordered. Labetalol as needed for SBP more than 180 mmHg. 6. Other comorbidities include possible GERD and generalized anxiety disease: Home medication reconciliation done. On PPI. Living will/advanced directive/end of life care: Patient does not have living will or advanced directive. She does not have regular power of associate attorney for health. After discussion of benefits/risks procedures involved with full code, DNR CC arrest and DNR CC, the patient and her fianc? opted for full code. Patient does want artificial life support including intubation, tube feed, ventilator and/chest compression, central venous catheter, vasopressor and DC shock if needed Total time spent in [id number] encounter in discussion of advanced directive 17 minutes. Laboratory Results 11/19/24 11:07: WBC 8.5, RBC 4.75, Hgb 14.7, Hct 42.3, MCV 89.1, MCH 30.9, MCHC 34.8, RDW Std Deviation 39.5, RDW Coeff of Jacob 12.1, Plt Count 257, MPV 10.2, Immature Gran % (Auto) 0.400, Neut % (Auto) 69.3, Lymph % (Auto) 21.3, [place] % (Auto) 6.5, Eos % (Auto) 2.0, Baso % (Auto) 0.5, Absolute Neuts (auto) 5.9, Absolute Lymphs (auto) 1.81, Nucleated RBC % 0, Sodium 137, Potassium 4.2, Chloride 101, Carbon Dioxide 24.0, Anion Gap 12, BUN 9, Creatinine 0.80, Estim Creat Clear Calc 109.96, Est GFR (MDRD) Non-Af 92, BUN/Creatinine Ratio 11.5, G lucose 176 H, Calcium 9.2, Troponin T High Sens 204 H*, HCG, Quant Cancelled, Serum , Qual Cancelled 11/19/24 13:15: Magnesium 2.0, Troponin T Hi Sens 2 Hr 283 H*, Serum , Qual NEGATIVE Clinical Impression(s) from Imaging Studies Chest X-Ray 11/19/24 10:47 IMPRESSION: No radiographic evidence of an acute cardiopulmonary process. Reading Location: [facility] Medications at Discharge Home Medications ascorbate calcium (vitamin C) 500 mg tablet 500 mg PO DAILY 05/23/21 canagliflozin 100 mg tablet (Invokana) 100 mg PO DAILY 05/23/21 cholecalciferol (vitamin D3) 25 mcg (1,000 unit) capsule 25 mcg PO DAILY 05/23/21 metformin 1,000 mg tablet 1,000 mg PO BID 05/23/21 pravastatin 10 mg tablet 10 mg PO QHS 05/23/21 zinc 50 mg tablet 50 mg PO DAILY 05/23/21 multivitamin 1 tab PO DAILY 07/02/23 baclofen 10 mg tablet See Rx Instructions .Route .COMPLEX #90 tabs 07/31/23 albuterol sulfate 90 mcg/actuation aerosol inhaler 2 puff inhalation Q6H PRN shortness of breath or wheezing #8.5 grams 04/28/24 dulaglutide 3 mg/0.5 mL subcutaneous pen injector (Trulicity) 3 mg subcut QWEEK Diabetes 08/04/24 omeprazole 40 mg capsule,delayed release 40 mg PO DAILY #90 caps 08/04/24 Physical Exam Narrative Patient was discharged on the day of admission. Weight / BMI Weight Weight: 239 lb 3.225 oz Body Mass Index (BMI) 37.4 ABG / Lab / Microbiology Data 11/19/24 11:07 11/19/24 11:07 Laboratory: Laboratory Results - last 24 hr 11/19/24 11:07: WBC 8.5, RBC 4.75, Hgb 14.7, Hct 42.3, MCV 89.1, MCH 30.9, MCHC 34.8, RDW Std Deviation 39.5, RDW Coeff of Jacob 12.1, Plt Count 257, MPV 10.2, Immature Gran % (Auto) 0.400, Neut % (Auto) 69.3, Lymph % (Auto) 21.3, [place] % (Auto) 6.5, Eos % (Auto) 2.0, Baso % (Auto) 0.5, Absolute Neuts (auto) 5.9, Absolute Lymphs (auto) 1.81, Nucleated RBC % 0, Sodium 137, Potassium 4.2, Chloride 101, Carbon Dioxide 24.0, Anion Gap 12, BUN 9, Creatinine 0.80, Estim Creat Clear Calc 109.96, Est GFR (MDRD) Non-Af 92, BUN/Creatinine Ratio 11.5, G lucose 176 H, Calcium 9.2, Troponin T High Sens 204 H*, HCG, Quant Cancelled, Serum , Qual Cancelled 11/19/24 13:15: Magnesium 2.0, Troponin T Hi Sens 2 Hr 283 H*, Serum , Qual NEGATIVE 11/19/24 20:48: POC Glucose 139 H Radiography Diagnostic Testing: Radiology Impression Chest X-Ray 11/19/24 10:47 IMPRESSION: No radiographic evidence of an acute cardiopulmonary process. Reading Location: [facility] D/C Instructions DC O2, CPAP, BIPAP Needs Home O2 Discharge instructions: No Meaningful Use Info Meaningful Use Meaningful Use Diagnoses (Choose all that apply): None applicable Ischemic Stroke Statin Dosing Therapy Reference: STATIN DOSE THERAPY REFERENCE: * Patients > 75 years receive moderate or high dose statin therapy. * Patients 75 years or YOUNGER should receive HIGH intensity statin dose unless contraindicated. You will be required to document reason for non-treatment if statin daily dose does not meet guidelines. HIGH DOSE STATIN THERAPY DAILY Atorvastatin > than or = to 40 mg Rosuvastatin > than or = to 20 mg Amlodipine + Atorvastatin > than or = to 2.5/40 mg Ezetimibe + Simvastatin 10/80 mg Simvastatin 80mg Discharge Plan Admission Admit Date/Time: 11/19/24 12:31 Primary Reason for Your Visit: chest pain Attending Provider: Sheldon Esteban Primary Care Provider: Britney Donaldson Consulting Providers: Niraj Castillo Discharge Orders/Prescriptions Prescriptions: No Action pravastatin 10 mg tablet 10 mg PO QHS metformin 1,000 mg tablet 1,000 mg PO BID Invokana 100 mg tablet 100 mg PO DAILY cholecalciferol (vitamin D3) 25 mcg (1,000 unit) capsule 25 mcg PO DAILY ascorbate calcium (vitamin C) 500 mg tablet 500 mg PO DAILY zinc 50 mg tablet 50 mg PO DAILY multivitamin Tablet 1 tab PO DAILY Trulicity 3 mg/0.5 mL pen injector 3 mg subcut QWEEK omeprazole 40 mg capsule,delayed release(DR/EC) 40 mg PO DAILY Qty: 90 1RF baclofen 10 mg tablet See Rx Instructions .ROUTE .COMPLEX Qty: 90 0RF Dose Instruction: TAKE 1 TABLET BY MOUTH 3 TIMES A DAY Rx Instructions: TAKE 1 TABLET BY MOUTH 3 TIMES A DAY albuterol sulfate 90 mcg/actuation HFA aerosol inhaler 2 puff inhalation Q6H PRN (Reason: shortness of breath or wheezing) Qty: 8.5 3RF Referrals / Follow Up: Britney Donaldson MD [Primary Care Provider] - Disposition Disposition (needs filled in before D/C Order can be placed): Acute Care Hospital Charges/Coding Visit Charges Inpatient E&M: 77922 Disch Hosp >30min
--- NOTE | 2025-01-12 09:45 | CL.D_ITS ---
Patient Name: CARA CORTES Study Date: 11/19/2024 Performing: Niraj Castillo MD Ht: 69 inches 175.26 cm : 1975 Wt: 237.88 lbs 107.9 kg Age: 49 Gender: female BSA: 2.22 PROCEDURE(S) PERFORMED [id number])LHC/COR/LV CLINICAL PROFILE AND INDICATIONS Indications: ACS <= 24 hrs Heart Failure: None Stress/Imaging Stress/Image Study Performed: No CAD Presentations: Non-STEMI. 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 Mildly reduced ejection fraction. RECOMMENDATIONS Patient to be transferred for high risk PCI versus surgical intervention. DESCRIPTION OF PROCEDURE The patient arrived to the procedure lab. The risks and benefits of the procedure as well as a full description of our services here and current unavailability of surgical backup were fully explained to the patient and/or their significant other prior to the catheterization. The Timeout was completed, verifying the correct patient and procedure. The patient's procedural site was prepped and draped in the usual fashion. Local anesthetic was given subcutaneously to right radial region with Lidocaine 2%. Using a modified Seldinger technique, arterial access was obtained via the right radial artery, a 6Fr sheath was inserted. Right Coronary Artery selective angiography was then performed in multiple views using a 5 Fr. 4.0 Bee catheter. Left Coronary Artery selective angiography was performed in multiple views using a 5 Fr. 4.0 Bee catheter. Left Ventriculography was performed in SINGH projection using a 5 Fr. Pigtail catheter. LV to AO pullback pressures were then recorded.The arterial sheath was pulled and a TR Band was applied for hemostasis 13cc air CORONARY ANGIOGRAPHY DOMINANCE: Right Dominant LEFT HEART ASSESSMENT Left Ventricular Ejection Fraction: by LV Gram 50 % Anterior Hypokinesis - Mild Depressed Left Ventricular systolic function LEFT MAIN: Angiographically normal LEFT ANTERIOR DESCENDING ARTERY: Left anterior descending is mildly calcified in the proximal segment and there is a first diagonal or high ramus intermedius which appears to be subtotally occluded the vessel then after that has a 70% stenotic lesion and then is mildly diffusely diseased. CIRCUMFLEX ARTERY: This vessel has a proximal high-grade stenotic area there is a first obtuse marginal branch which has mild disease. The vessel then continues and has moderate 50% stenosis prior to giving off a second obtuse marginal branch. RIGHT CORONARY ARTERY: Mild luminal irregularities COMPLICATIONS No Complications PROCEDURE MEDICATIONS Fentanyl 50 mcg IV Versed 1 mg IV Versed 1 mg IV Oxygen: 2 L/min via nasal cannula Heparin given IA 11/19/2024 13:48:11 Verapamil 2.5mg, Ntg 100mcgs, 3000 units of Heparin given IA 11/19/2024 13:48:11 SUMMARY OF HEMODYNAMIC DATA Time AIR REST ECG 13:29:42 AO 124/90 (108) SA 13:53:11 LV 140/0, 1 14:00:29 LV 133/0, 0 14:00:37 LV 128/2, 3 14:01:17 LV 121/0, 1 14:01:25 LVp 121/1, 2 14:01:30 AOp 134/76 (104) 14:01:37 Signed By Niraj Castillo MD On 11/20/2024 09:11:45 Signed By Niraj Castillo MD On 11/19/2024 19:14:52 Niraj Castillo MD
== END 2024-11-19 21:40 | disposition short-term general hospital (02) | DRG 190 ==
LOC: ED 11:47 → PCU 12:58
PROVIDERS: Internal Medicine Cardiovascular Disease; Admitting Provider Internal Medicine; Emergency Provider Emergency Medicine; PCP Internal Medicine; Referring Provider Internal Medicine; Visit Provider Internal Medicine
DX: I21.4 Non-ST elevation (NSTEMI) myocardial infarction (principal); E11.43 Type 2 diabetes mellitus with diabetic autonomic (poly)neuropathy; I10 Essential (primary) hypertension; Z68.37 Body mass index [BMI] 37.0-37.9, adult; K21.9 Gastro-esophageal reflux disease without esophagitis; K31.84 Gastroparesis; E55.9 Vitamin D deficiency, unspecified; I25.10 Atherosclerotic heart disease of native coronary artery without angina pectoris; I49.9 Cardiac arrhythmia, unspecified; E78.5 Hyperlipidemia, unspecified; R59.0 Localized enlarged lymph nodes; N39.3 Stress incontinence (female) (male); Z83.3 Family history of diabetes mellitus; E66.9 Obesity, unspecified; F41.1 Generalized anxiety disorder
CPT/HCPCS: 71045; 80048; 82962; 83735; 84484; 84703; 85025; 93005; 93458; 99152; 99153; 99285; Q9967; A4216; C1769; C1894

== ENCOUNTER → 2024-12-04 | Outpatient (CLI) | payer MEDICAID, SELFPAY ==
[2024-12-04 09:15] VITALS: BMI 36.0; BMI 36.1
[2024-12-04 09:32] VITALS: BP 96/70; PULSE 81; RESP 16; O2SAT 100; BMI 36.1
== END | disposition home or self-care (01) ==
PROVIDERS: PCP Internal Medicine; Referring Provider Internal Medicine Interventional Cardiology; Visit Provider Internal Medicine Interventional Cardiology
DX: I21.4 Non-ST elevation (NSTEMI) myocardial infarction (principal)

== ENCOUNTER 2024-12-24 08:00 | Outpatient (RCR) | payer MEDICAID, SELFPAY ==
[2024-12-04 09:15] VITALS: BMI 36.1
--- NOTE | 2024-12-29 08:56 | CR.ITP_ITS ---
Exercise - Initial Assessment Visit Session #:: 5 Physician Prescribed Exercise Modalities: Treadmill, SciFit Stepper and SciFit Lateral [place] Nutrition - Initial Assessment Weight Mgt (Other Care) Height: 5 ft 7 in Weight:: 230 lb BMI: 36.0 Psychosocial - Initial Assess Target Goals Target Goals Referral to Behavioral Health PS - Interventions: Yes: Attend Stress Management Classes Patient Health Questionnaire PHQ-9 Screening 30-Day Re-eval Assessment: 1. Little interest or pleasure in doing things: Not at all 2. Feeling down, depressed, or hopeless: Several days 3. Trouble falling or staying asleep, or sleeping too much: Not at all 4. Feeling tired or having little energy: Several days 5. Poor appetite or overeating: Not at all 6. Feeling bad about yourself -- or that you are a failure or have let yourself or your family down: Several days 7. Trouble concentrating on things, such as reading the newspaper or watching television: Not at all 8. Moving or speaking so slowly that other people could have noticed. Or the opposite - being so fidgety or restless that you have been moving around a lot more than usual: Not at all 9. Thoughts that you would be better off , or of hurting yourself in some way: Not at all How difficult have these problems made it for you to do your work, take care of things at home, or get along with other people?: Not difficult at all Total Score: 3 Self-Efficacy 6-Item Scale 30-Day Re-eval Assessment: We would like to know how confident you are in doing certain activities. Please select your confidence level for: Fatigue Select Number: 10 Physical Discomfort or Pain Select Number: 10 Emotional Distress Select Number: 9 Other Symptoms or Health Problems Select Number: 9 Different Tasks and Activities Select Number: 10 Medication Select Number: 10 Total Score:: 9 Nutrition Survey Nutrition Survey Instructions Scoring Instructions Exercise - 30-day Assessment Visit Date of Eval: 12/29/24 Session #:: 5 Physician Prescribed Exercise Modalities: Treadmill, SciFit Stepper and SciFit Lateral [place] Frequency: 3x/week for 12 weeks [36 sessions] Intensity: 60-80% of age predicted maximum heart rate reserve Duration: 30 - 45 minutes METs - Progression 0.5-1.0 weekly:: 1 Current METSs:: 4.4 Target Heart Rate:: 112-130 Target RPE 12-16:: 12-16 Current RPE:: 13 Maximum Excercise HR:: 116 Resting Blood Pressure: 122/80 Maximum Exercise Blood Pressure: 142/88 EKG Type: NSR to Sinus tachycardia Current Physical Activity or Exercising minutes: 30 Outcomes & Goals Goals:: Verbalizes understanding of THR, RPE & goal METS by session 6, Documents in home exercise log/reports 30 min aerobic 5 day/wk by DC and Demonstrates accurate pulse taking by DC Intervention & Plan Exercise Program Goals: Instruct on personal THR & RPE, Instruct on MET level & personal MET goal, Show patient to take own pulse /validate performance until accurate and Instruct on home exercise 30-day Reassessments 30 day Reassessments:: Progressing Physical Activity Home Exercise Physical Activity - Home Exercise: Safe Exercise, Warm-up, Self-monitoring, Cool-Down, Home Exercise > 30 min Daily and Sitting Time <3 hours/daily Outcomes & Goals Outcomes/Goals: Demonstrates correct Warm-up/exercise Cool-Down (S3) if = 2.5 METs, Verbalizes symptoms of exercise intolerance by Session 3 (S3) and Demonstrate safe equipment use (S3) & follows exercise prescrition (6) Intervention & Plan Plan/Intervention: Instruct warm-up & cool-down if exercising at > 2 METs, Instruct on symptoms of exercise intolerance & actions to take, Instruct & monitor on saf and Assess intial functional capacity & safety risk 30-day Reassessments 30 day Reassessments:: Progressing Reassessment Notes & Comments:: educated on importance of warm up and cooldown before and after exercise. demonstrates understanding. increasing exercise workloads as tolerated. 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 Nutrition - 30-Day Assessment Program Goals Nutrition Program Goals Patient has diagnosis of Hyperlipidemia (ICD E78)?: Yes Visit Date of Eval: 12/29/24 Session #:: 5 Cholesterol/Lipids (Other Core Measures) Determine presence & major risk factors that modify LDL goal: Cigarette smoking, Hypertension or hypertensive medication, Low HDL cholesterol <40 mg/dL*, Family history of premature CHD in Male < 55 years: female <65 yearsFa and Age men > 45 years; women >/= 55 years Outcomes/Goals: Pt IDs own risk factors & lifestyle modifications by Session 10, Verbalizes symptoms of angina & response by session 3. and Pt independently manages Intervention/Plan: Advocate for lipid panel cholesterol medication if applicable, Instruct on personal lipid levels & lipid goals/NCEP guidelines, Instruct on cholesterol and Other additional plan/int 30-day Reassessments:: Progressing Diabetes (Other Core Measures) Diabetes Type: Diagnosis Type II ICD-10 E11 Insulin dependent injection/pump?: No Non-Insulin Dependent?: Yes Do you monitor your blood sugar at home?: Yes Referral to Diabetic Clinic:: No Outcomes/Goals:: Able to state symptoms of, Able to state, Able to state and Other additional Intervention/Plan:: Instruct on, Refer to, Instruct on and Other 30-day Reassessments:: Progressing Reassessment Notes & Comments:: encouraged heart healthy diet. pt accurately checks blood sugars before and after exercise. Weight Mgt (Other Care) Height: 5 ft 7 in Weight:: 230 lb BMI: 36.0 Diagnosis High BMI/Morbid Obesity BMI> 35% ICD-10 Z68: Yes Outcomes/Goals: Pt sets, maintains & shows weight loss goal & trend during rehab Intervention/Plan: Instruct on ideal BMI & set weight loss goal w/patient, Assist pt to ID & incorporate diet changes for weight loss by S9, Refer to Structured Weight Loss program as appropriate and Encourage goal of using 250- 300dcal per session for weight loss 30 day Reassessments:: Progressing Reassessment Notes & Comments:: Pt to continue to weigh in weekly to measure progress towards weight loss goal. Healthy Eating Habits Will attend diet classes:: Yes Outcomes/Goals:: Consume diet rich in vegs,fruits,whole grain/high fiber,fish,lean meat, Limit sat/trans fats,cholesterol & added salts & sugars and Other additional outcome/goals: Intervention/Plan:: Assess current eating habits and Other Additional plan/interventions 30-day Reassessments:: Progressing Reassessment Notes & Comments:: encouraged pt to attend nutrition classes with software engineer kernel next month. Education Gave educational materials for:: Signs & symptoms of hypoglycemia, Signs & symptoms of hyperglycemia, Relate diabetes to coronary artery disease and Healthy eating Nutrition - 60-Day Assessment Weight Mgt (Other Care) Height: 5 ft 7 in Weight:: 230 lb BMI: 36.0 Core - 30-Day Assessment Visit Date of Eval: 12/29/24 Session #:: 5 Medication Compliance Preventative Medication(s):: Aspirin, STEPHAN inhibitor, Ticagrelor/P2Y12 inhibitor, Statin/lipid and Beta kei H/O mental health issues: depression, anxiety, or addiction?: Yes Doesn?t believe in the benefits of treatment?: No Believes medications are unnecessary or harmful?: No Has a concern about medication side effects?: No Expresses concern over the cost of medications?: No Outcomes/Goals: Verbalizes medications,desired effect & common side effects @ DC, Pt self-reports following medication regimen and Keeps card in wallet w/medications listed by DC Interventions/plans: Instruct on medication effects & side effects, Review medication list w/patient every two weeks and Instruct importance of taking meds as ordered & assist problem solving 30-day Reassessments:: Progressing Reassessment Notes & Comments:: taking medications as prescribed. no concerns at this time. Tobacco Use Tobacco Use: Non-smoker Hypertension Hypertension Diagnosis:: Not Applicable Resting Blood Pressure:: 122/80 [employer] Hypertension Guidelines Peak Exercise Blood Pressure:: 142/88 Outcomes/Goals: Able to verbalize/achieve optimal blood pressure <130/80 and Incorporates diet changes & exercise for blood pressure control by DC Interventions/plan: Instruct on optimal blood pressure, hypertension & medications and Instruct on effects of sodium, alcohol, stress, exercise &hypertension 30 day Reassessments:: Progressing Reassessment Notes & Comments:: BP's WNL. Tobacco Cessation Referral Education Schedule Given:: Yes Core - Final Assessment Hypertension [employer] Hypertension Guidelines Reassessment Notes & Comments:: BP's WNL. Core - 90 Day Assessment Hypertension [employer] Hypertension Guidelines Reassessment Notes & Comments:: BP's WNL. Psychosocial - 30-Day Assess VIsit Date of Eval: 12/29/24 Session #:: 5 History of Emotional Disorders: Anxious Target Goals Target Goals Psychosocial Test Tool Used:: PHQ-9 Questionnaire phq-9 Severity See PHQ-9 Score: 3 Referral to Behavioral Health PS - Interventions: Yes: Attend Stress Management Classes Outcomes/Goals: See list Psychosocial Outcomes/Goals:: ID's personal stressors & 2 strategies to manage stress by discharge Intervention/Plan: See List Interventions/Plan:: Assess stressors,coping strategies & signs of derpression on admission, Instruct/assist pt to develop coping & personal stress Mgt strategies, Refer to Behavioral Health if appropriate, Refer to Physician if appropriate, Instruct patient to recognize signs & symptoms of depression and Instruct patient to recog 30-day Reassessments: 30 day Reassessments:: Progressing Reassessment Notes & Comments:: encouraged to attend stress and emotion management classes during rehab. no psychosocial concerns voiced at this time. Psychosocial - 60-Day Assess Target Goals Target Goals Referral to Behavioral Health PS - Interventions: Yes: Attend Stress Management Classes Outcomes/Goals: See list Psychosocial Outcomes/Goals:: ID's personal stressors & 2 strategies to manage stress by discharge Psychosocial - 90-Day Assess Target Goals Target Goals Referral to Behavioral Health PS - Interventions: Yes: Attend Stress Management Classes Psychosocial - Final Assessmen Target Goals Target Goals Referral to Behavioral Health PS - Interventions: Yes: Attend Stress Management Classes Nutrition - 90-Day Assessment Weight Mgt (Other Care) Height: 5 ft 7 in Weight:: 230 lb BMI: 36.0 Nutrition - Final Assessment Weight Mgt (Other Care) Height: 5 ft 7 in Weight:: 230 lb BMI: 36.0
[2024-12-29 09:13] VITALS: BP 122/80; BMI 36.0
== END 2025-01-01 23:59 ==
LOC: CR 08:00
PROVIDERS: PCP Internal Medicine; Referring Provider Internal Medicine Interventional Cardiology; Visit Provider Internal Medicine Interventional Cardiology
DX: I21.4 Non-ST elevation (NSTEMI) myocardial infarction (principal)
CPT/HCPCS: 93798

== ENCOUNTER 2025-01-21 08:00 | Outpatient (RCR) | payer MEDICAID, SELFPAY ==
--- NOTE | 2025-01-27 09:34 | PCM.CR.ITP ---
Diagnosis Diagnosis & Disease Process Outcomes/Goals: Pt IDs own risk factors & lifestyle modifications by Session 10, Verbalizes symptoms of angina & response by session 3. and Pt independently manages Plan/Interventions: Assist Pt to ID & engage in lifestyle modification to reduce CVD risk, Instruct on individual risk factors, Review symptoms of angina & emergency actions and Review secondary diagnosis & identify educational needs. 30 day Reassessments:: Progressing Comment:: PT independently manages BS, and is engaging in active lifestyle modification Exercise - Initial Assessment Physician Prescribed Exercise Modalities: Treadmill, Rower, Schwinn Airdyne AD-7, SciFit Stepper, [employer] Pro-II Ergometer and [employer] Lateral Biological Photographer Nutrition - Initial Assessment Cholesterol/Lipids (Other Core Measures) Outcomes/Goals: Pt IDs own risk factors & lifestyle modifications by Session 10, Verbalizes symptoms of angina & response by session 3. and Pt independently manages Weight Mgt (Other Care) Height: 5 ft 7 in Weight:: 228 lb BMI: 35.6 BMI (Report if calculated above): 35 Core - Initial Assessment Hypertension Resting Blood Pressure:: 108/70 [place] [employer] Hypertension Guidelines Psychosocial - Initial Assess Target Goals Target Goals Referral to Behavioral Health PS - Interventions: Yes: Attend Stress Management Classes Patient Health Questionnaire PHQ-9 Screening 60-Day Re-eval Assessment: 1. Little interest or pleasure in doing things: Not at all 2. Feeling down, depressed, or hopeless: Several days 3. Trouble falling or staying asleep, or sleeping too much: Not at all 4. Feeling tired or having little energy: Several days 5. Poor appetite or overeating: Not at all 6. Feeling bad about yourself -- or that you are a failure or have let yourself or your family down: Several days 7. Trouble concentrating on things, such as reading the newspaper or watching television: Not at all 8. Moving or speaking so slowly that other people could have noticed. Or the opposite - being so fidgety or restless that you have been moving around a lot more than usual: Not at all 9. Thoughts that you would be better off , or of hurting yourself in some way: Not at all How difficult have these problems made it for you to do your work, take care of things at home, or get along with other people?: Not difficult at all Total Score: 3 Self-Efficacy 6-Item Scale 60-Day Re-eval Assessment: We would like to know how confident you are in doing certain activities. Please select your confidence level for: Fatigue Select Number: 10 Physical Discomfort or Pain Select Number: 10 Emotional Distress Select Number: 9 Other Symptoms or Health Problems Select Number: 9 Different Tasks and Activities Select Number: 10 Medication Select Number: 10 Total Score:: 9 Nutrition Survey Nutrition Survey Instructions Scoring Instructions Nutrition Survey Discharge: Have you lost >10 lbs over the past 2 months without trying?: Yes Are you following a special diet at home for diabetes, low fat, or low salt?: Yes Are you interested in meeting with a dietitian for help understanding your diet?: No Do you eat less than 3 meals a day?: Yes Do you eat fatty meats (turner, sausage, ribs, etc), fried foods, desserts, large amounts of salad dressings, margarine, butter, or cheese most days?: No Do you have food allergies? [Enter types in comment field]: No Do you eat in restaurants more than 3 times a week?: Yes Do you season food with salt, seasoning salt, or garlic salt?: No Do you used canned, boxed, frozen meals, or soups, seasoning packets?: No Total Score:: 4 Exercise - 30-day Assessment Physician Prescribed Exercise Modalities: Treadmill, Rower, Schwinn [place]liene AD-7, SciFit Stepper, SciFit Pro-II Ergometer and SciFit Lateral Biological Photographer Exercise - 60-day Assessment Visit Date of Eval: 01/27/25 Session #:: 9 Physician Prescribed Exercise Modalities: Treadmill, Rower, Schwinn Airdyne AD-7, SciFit Stepper, SciFit Pro-II Ergometer and SciFit Lateral [place] Frequency: 3x/week for 12 weeks [36 sessions] Intensity: 60-80% of age predicted maximum heart rate reserve Duration: 30 - 45 minutes METs - Progression 0.5-1.0 weekly:: 0.5-1.0 Current METSs:: 4 Target Heart Rate:: 112-130 Target RPE 11-14 Current RPE:: 11-14 Current RPE:: 13 Maximum Excercise HR:: 122 Resting Blood Pressure: 116/68 Maximum Exercise Blood Pressure: 142/74 EKG Type: NSR to ST Current Physical Activity or Exercising minutes: 30-45 Outcomes & Goals Goals:: Verbalizes understanding of THR, RPE & goal METS by session 6, Documents in home exercise log/reports 30 min aerobic 5 day/wk by DC and Demonstrates accurate pulse taking by DC Intervention & Plan Exercise Program Goals: Instruct on personal THR & RPE, Instruct on MET level & personal MET goal, Show patient to take own pulse /validate performance until accurate and Instruct on home exercise Comment:: Pt uses RPE scale correctly with no prompting. Pt reports activity at home 30-day Reassessments 30 day Reassessments:: Progressing Physical Activity Home Exercise Physical Activity - Home Exercise: Safe Exercise, Warm-up, Self-monitoring, Cool-Down, Home Exercise > 30 min Daily and Sitting Time <3 hours/daily Outcomes & Goals Outcomes/Goals: Demonstrates correct Warm-up/exercise Cool-Down (S3) if = 2.5 METs, Verbalizes symptoms of exercise intolerance by Session 3 (S3) and Demonstrate safe equipment use (S3) & follows exercise prescrition (6) Intervention & Plan Plan/Intervention: Instruct warm-up & cool-down if exercising at > 2 METs, Instruct on symptoms of exercise intolerance & actions to take, Instruct & monitor on saf and Assess intial functional capacity & safety risk 30-day Reassessments 30 day Reassessments:: Met Reassessment Notes & Comments:: Pt demonstrates proper warm up and cool down, pt demonstrates safe use of equipment. Exercise - 90-day Assessment Physician Prescribed Exercise Modalities: Treadmill, Rower, Schwinn Airdyne AD-7, SciFit Stepper, SciFit Pro-II Ergometer and SciFit Lateral Biological Photographer Exercise - Final/Discharge Physician Prescribed Exercise Modalities: Treadmill, Rower, Schwinn Airdyne AD-7, SciFit Stepper, SciFit Pro-II Ergometer and SciFit Lateral [place] Nutrition - 30-Day Assessment Weight Mgt (Other Care) Height: 5 ft 7 in Weight:: 228 lb BMI: 35.6 BMI (Report if calculated above): 35 Nutrition - 60-Day Assessment Program Goals Nutrition Program Goals Patient has diagnosis of Hyperlipidemia (ICD E78)?: Yes Visit Date of Eval: 01/27/25 Session #:: 9 Cholesterol/Lipids (Other Core Measures) Total Triglycerides (mg/dL): 148 Total Cholesterol: 181 LDL Cholesterol (mg/dL): 76 HDL Cholesterol (mg/dL): 52 Lipid Medication: atorvastatin 40mg QHS Determine presence & major risk factors that modify LDL goal: Cigarette smoking, Hypertension or hypertensive medication, Low HDL cholesterol <40 mg/dL*, Family history of premature CHD in Male < 55 years: female <65 yearsFa and Age men > 45 years; women >/= 55 years Outcomes/Goals: Pt IDs own risk factors & lifestyle modifications by Session 10, Verbalizes symptoms of angina & response by session 3. and Pt independently manages Intervention/Plan: Advocate for lipid panel cholesterol medication if applicable, Instruct on personal lipid levels & lipid goals/NCEP guidelines and Instruct on cholesterol 30-day Reassessments:: Progressing Reassessment Notes & Comments:: Pt with recent lipid profile, pt taking statin medication as prescribed Diabetes (Other Core Measures) Diabetes Type: Diagnosis Type II ICD-10 E11 Hgb A1C (4.2 -6.3): 8.0 Insulin dependent injection/pump?: No Non-Insulin Dependent?: Yes Do you monitor your blood sugar at home?: Yes Referral to Diabetic Clinic:: No Outcomes/Goals:: Able to state symptoms of (hypoglycemia, hyperglycemia) and Able to state (goals of carb controlled diet) Intervention/Plan:: Instruct on (carb controlled diet) 30-day Reassessments:: Progressing Reassessment Notes & Comments:: Pt monitors BS at home, pt independently manages diabetic medications Weight Mgt (Other Care) Height: 5 ft 7 in Weight:: 228 lb BMI: 35.6 BMI (Report if calculated above): 35 Diagnosis Overweight/Obesity BMI> 30% ICD-10 E66: Yes Diagnosis High BMI/Morbid Obesity BMI> 35% ICD-10 Z68: Yes Outcomes/Goals: Pt sets, maintains & shows weight loss goal & trend during rehab Intervention/Plan: Instruct on ideal BMI & set weight loss goal w/patient, Assist pt to ID & incorporate diet changes for weight loss by S9, Refer to Structured Weight Loss program as appropriate and Encourage goal of using 250-300dcal per session for weight loss 30 day Reassessments:: Progressing Reassessment Notes & Comments:: Pt showing improvement and weight loss, pt working with personal type proof reproducer to strategize weight loss goals and methods to achieve Healthy Eating Habits Will attend diet classes:: Yes Outcomes/Goals:: Consume diet rich in vegs,fruits,whole grain/high fiber,fish,lean meat and Limit sat/trans fats,cholesterol & added salts & sugars Intervention/Plan:: Assess current eating habits 30-day Reassessments:: Progressing Reassessment Notes & Comments:: Pt to attend healthy eating diet classes Education Gave educational materials for:: Signs & symptoms of hypoglycemia, Signs & symptoms of hyperglycemia, Relate diabetes to coronary artery disease and Healthy eating Core - Final Assessment Hypertension Resting Blood Pressure:: 108/70 [place] [employer] Hypertension Guidelines Core - 60-Day Assessment Visit Date of Eval: 01/27/25 Session #:: 9 Medication Compliance Preventative Medication(s):: Aspirin, STEPHAN inhibitor, Ticagrelor/P2Y12 inhibitor, Statin/lipid and Beta kei H/O mental health issues: depression, anxiety, or addiction?: Yes Doesn?t believe in the benefits of treatment?: No Believes medications are unnecessary or harmful?: No Has a concern about medication side effects?: No Expresses concern over the cost of medications?: No Outcomes/Goals: Verbalizes medications,desired effect & common side effects @ DC, Pt self-reports following medication regimen and Keeps card in wallet w/medications listed by DC Interventions/plans: Instruct on medication effects & side effects, Review medication list w/patient every two weeks and Instruct importance of taking meds as ordered & assist problem solving 30-day Reassessments:: Progressing Reassessment Notes & Comments:: Pt taking medications as prescribed. No concerns at this time. Tobacco Use Tobacco Use: Non-smoker Hypertension Hypertension Diagnosis:: Not Applicable Resting Blood Pressure:: 116/68 Resting Blood Pressure:: 108/70 [place] [employer] Hypertension Guidelines Peak Exercise Blood Pressure:: 142/74 Outcomes/Goals: Able to verbalize/achieve optimal blood pressure <130/80 and Incorporates diet changes & exercise for blood pressure control by DC Interventions/plan: Instruct on optimal blood pressure, hypertension & medications and Instruct on effects of sodium, alcohol, stress, exercise &hypertension 30 day Reassessments:: Met Reassessment Notes & Comments:: BP WNL Psychosocial - 30-Day Assess Target Goals Target Goals Referral to Behavioral Health PS - Interventions: Yes: Attend Stress Management Classes Outcomes/Goals: See list Psychosocial Outcomes/Goals:: ID's personal stressors & 2 strategies to manage stress by discharge Psychosocial - 60-Day Assess VIsit Date of Eval: 01/27/25 Session #:: 9 History of previous Mental disease:: Yes History of Emotional Disorders: Anxious Target Goals Target Goals Psychosocial Test Tool Used:: PHQ-9 Questionnaire phq-9 Severity See PHQ-9 Score: 3 Total Score:: 3 Referral to Behavioral Health PS - Interventions: Yes: Attend Stress Management Classes Outcomes/Goals: See list Psychosocial Outcomes/Goals:: ID's personal stressors & 2 strategies to manage stress by discharge Intervention/Plan: See List Interventions/Plan:: Assess stressors,coping strategies & signs of derpression on admission, Instruct/assist pt to develop coping & personal stress Mgt strategies, Refer to Behavioral Health if appropriate, Refer to Physician if appropriate and Instruct patient to recognize signs & symptoms of depression 30-day Reassessments: 30 day Reassessments:: Progressing Reassessment Notes & Comments:: Pt encouraged to attend stress management and emotional wellbeing classes during rehab. Pt denies any psychosocial concerns a this time. Psychosocial - 90-Day Assess Target Goals Target Goals Referral to Behavioral Health PS - Interventions: Yes: Attend Stress Management Classes Psychosocial - Final Assessmen Target Goals Target Goals Referral to Behavioral Health PS - Interventions: Yes: Attend Stress Management Classes Nutrition - 90-Day Assessment Weight Mgt (Other Care) Height: 5 ft 7 in Weight:: 228 lb BMI: 35.6 BMI (Report if calculated above): 35 Nutrition - Final Assessment Weight Mgt (Other Care) Height: 5 ft 7 in Weight:: 228 lb BMI: 35.6 BMI (Report if calculated above): 35
[2025-01-27 09:48] VITALS: BP 116/68; BMI 35.0; BMI 35.6
[2025-01-27 09:57] VITALS: BP 108/70; BP 116/68
== END 2025-02-01 23:59 ==
LOC: CR 08:00
PROVIDERS: PCP Internal Medicine; Referring Provider Internal Medicine Interventional Cardiology; Visit Provider Internal Medicine Interventional Cardiology
DX: I21.4 Non-ST elevation (NSTEMI) myocardial infarction (principal)
CPT/HCPCS: 93798

== ENCOUNTER 2025-02-04 06:53 | Outpatient (RCR) | payer MEDICAID, SELFPAY ==
[2025-01-27 09:48] VITALS: BMI 35.6
--- NOTE | 2025-02-26 07:28 | CR.ITP_ITS ---
Exercise - Initial Assessment Physician Prescribed Exercise Modalities: Treadmill, SciFit Stepper and SciFit Lateral [place] Intensity: 60-80% of age predicted maximum heart rate reserve Nutrition - Initial Assessment Program Goals Nutrition Program Goals Patient has diagnosis of Hyperlipidemia (ICD E78)?: Yes Weight Mgt (Other Care) Height: 5 ft 7 in Weight:: 228 lb BMI: 35.6 Core - Initial Assessment Hypertension Resting Blood Pressure:: 116/68 [place] [employer] Hypertension Guidelines Psychosocial - Initial Assess Psychosocial Test phq-9 Severity See PHQ-9 Score: 3 Referral to Behavioral Health PS - Interventions: Yes: Attend Stress Management Classes Exercise - 30-day Assessment Physician Prescribed Exercise Modalities: Treadmill, SciFit Stepper and SciFit Lateral [place] Exercise - 60-day Assessment Physician Prescribed Exercise Modalities: Treadmill, SciFit Stepper and SciFit Lateral [employer] Exercise - 90-day Assessment Physician Prescribed Exercise Modalities: Treadmill, SciFit Stepper and SciFit Lateral [place] Exercise - Final/Discharge Visit Date of Eval: 02/26/25 Session #:: 9 (Pt has decided to stop attending cardiac rehab.) Physician Prescribed Exercise Modalities: Treadmill, SciFit Stepper and SciFit Lateral [place] Frequency: 3x/week for 12 weeks [36 sessions] Intensity: 60-80% of age predicted maximum heart rate reserve Intensity: 60-80% of age predicted maximum heart rate reserve Duration: 30 - 45 minutes Current METSs:: 4.9 Target Heart Rate:: 112-130 Current RPE:: 13-14 Maximum Heart Rate:: 122 Resting Blood Pressure: 116/68 Maximum Exercise Blood Pressure: 142/74 EKG Type: NSR to ST Outcomes & Goals Goals:: Verbalizes understanding of THR, RPE & goal METS by session 6, Documents in home exercise log/reports 30 min aerobic 5 day/wk by DC, Demonstrates accurate pulse taking by DC and Other additional outcome/goals: see below Intervention & Plan Exercise Program Goals: Instruct on personal THR & RPE, Instruct on MET level & personal MET goal, Show patient to take own pulse /validate performance until accurate, Instruct on home exercise and Other additional plan/int Physical Activity Home Exercise Physical Activity - Home Exercise: Safe Exercise, Warm-up, Self-monitoring, Cool-Down, Home Exercise > 30 min Daily and Sitting Time <3 hours/daily Outcomes & Goals Outcomes/Goals: Demonstrates correct Warm-up/exercise Cool-Down (S3) if = 2.5 METs, Verbalizes symptoms of exercise intolerance by Session 3 (S3), Demonstrate safe equipment use (S3) & follows exercise prescrition (6) and Other: See below Intervention & Plan Plan/Intervention: Instruct warm-up & cool-down if exercising at > 2 METs, Instruct on symptoms of exercise intolerance & actions to take, Instruct & monitor on saf, Assess intial functional capacity & safety risk and Other See below Nutrition - 30-Day Assessment Weight Mgt (Other Care) Height: 5 ft 7 in Weight:: 228 lb BMI: 35.6 Nutrition - 60-Day Assessment Weight Mgt (Other Care) Height: 5 ft 7 in Weight:: 228 lb BMI: 35.6 Core - Final Assessment Visit Date of Eval: 02/26/25 Session #:: 9 Medication Compliance Preventative Medication(s):: Aspirin, STEPHAN inhibitor, Ticagrelor/P2Y12 inhibitor, Statin/lipid and Beta kei H/O mental health issues: depression, anxiety, or addiction?: Yes Doesn?t believe in the benefits of treatment?: No Believes medications are unnecessary or harmful?: No Has a concern about medication side effects?: No Expresses concern over the cost of medications?: No Outcomes/Goals: Verbalizes medications,desired effect & common side effects @ DC, Pt self-reports following medication regimen, Keeps card in wallet w/ medications listed by DC and Other additional outcome/goals: Interventions/plans: Instruct on medication effects & side effects, Review medication list w/patient every two weeks, Instruct importance of taking meds as ordered & assist problem solving and Other additional Tobacco Use Tobacco Use: Non-smoker Hypertension Hypertension Diagnosis:: Not Applicable Resting Blood Pressure:: 116/68 [place] [employer] Hypertension Guidelines Peak Exercise Blood Pressure:: 142/74 Outcomes/Goals: Able to verbalize/achieve optimal blood pressure <130/80, Incorporates diet changes & exercise for blood pressure control by DC and Other additional outcomes/goals Interventions/plan: Instruct on optimal blood pressure, hypertension & medications, Instruct on effects of sodium, alcohol, stress, exercise &hypertension and Other additional plan/interventions 30 day Reassessments:: Met Tobacco Cessation Referral Smoking Cessation Referral:: No Individual Education/Counseling:: No Education Schedule Given:: Yes Core - 60-Day Assessment Hypertension Resting Blood Pressure:: 116/68 [place] [employer] Hypertension Guidelines Psychosocial - 30-Day Assess Referral to Behavioral Health PS - Interventions: Yes: Attend Stress Management Classes Psychosocial - 60-Day Assess Referral to Behavioral Health PS - Interventions: Yes: Attend Stress Management Classes Psychosocial - 90-Day Assess Referral to Behavioral Health PS - Interventions: Yes: Attend Stress Management Classes Psychosocial - Final Assessmen VIsit Date of Eval: 02/26/25 Session #:: 9 History of Emotional Disorders: Anxious Psychosocial Test Tool Used:: PHQ-9 Questionnaire phq-9 Severity See PHQ-9 Score: 3 Referral to Behavioral Health PS - Interventions: Yes: Attend Stress Management Classes Outcomes/Goals: See list Psychosocial Outcomes/Goals:: ID's personal stressors & 2 strategies to manage stress by discharge and Other Additional outcome/goals: Intervention/Plan: See List Interventions/Plan:: Assess stressors,coping strategies & signs of derpression on admission, Instruct/assist pt to develop coping & personal stress Mgt strategies, Refer to Behavioral Health if appropriate, Refer to Physician if appropriate, Instruct patient to recognize signs & symptoms of depression, Instruct patient to recog and Other additional plan/intervention Nutrition - 90-Day Assessment Weight Mgt (Other Care) Height: 5 ft 7 in Weight:: 228 lb BMI: 35.6 Nutrition - Final Assessment Program Goals Patient has diagnosis of Hyperlipidemia (ICD E78)?: Yes Visit Date of Assessment:: 02/26/25 Session #:: 9 (Nutrition survey score of 4) Cholesterol/Lipids (Other Core Measures) Determine presence & major risk factors that modify LDL goal: Cigarette smoking, Hypertension or hypertensive medication, Low HDL cholesterol <40 mg/dL*, Family history of premature CHD in Male < 55 years: female <65 yearsFa and Age men > 45 years; women >/= 55 years Outcomes/Goals: Pt IDs own risk factors & lifestyle modifications by Session 10, Verbalizes symptoms of angina & response by session 3., Pt independently manages and Other Additional Outcomes/Goals: Intervention/Plan: Advocate for lipid panel cholesterol medication if applicable, Instruct on personal lipid levels & lipid goals/NCEP guidelines, Instruct on cholesterol and Other additional plan/int Diabetes (Other Core Measures) Diabetes Type: Diagnosis Type II ICD-10 E11 Insulin dependent injection/pump?: No Non-Insulin Dependent?: Yes Do you monitor your blood sugar at home?: Yes Referral to Diabetic Clinic:: No Weight Mgt (Other Care) Height: 5 ft 7 in Weight:: 228 lb BMI: 35.6 Diagnosis Overweight/Obesity BMI> 30% ICD-10 E66: Yes Diagnosis High BMI/Morbid Obesity BMI> 35% ICD-10 Z68: Yes Outcomes/Goals: Pt sets, maintains & shows weight loss goal & trend during rehab and Other additional outcomes/goals Intervention/Plan: Instruct on ideal BMI & set weight loss goal w/patient, Assist pt to ID & incorporate diet changes for weight loss by S9, Refer to Structured Weight Loss program as appropriate, Encourage goal of using 250- 300dcal per session for weight loss and Other additional plan/interventions Healthy Eating Habits Outcomes/Goals:: Consume diet rich in vegs,fruits,whole grain/high fiber,fish,lean meat, Limit sat/trans fats,cholesterol & added salts & sugars and Other additional outcome/goals: Intervention/Plan:: Assess current eating habits and Other Additional plan/interventions Education Gave educational materials for:: Signs & symptoms of hypoglycemia, Signs & symptoms of hyperglycemia, Relate diabetes to coronary artery disease and Healthy eating
[2025-02-26 07:38] VITALS: BP 116/68; BMI 35.6
== END 2025-03-03 23:59 ==
LOC: CR 06:53
PROVIDERS: PCP Internal Medicine; Referring Provider Internal Medicine Interventional Cardiology; Visit Provider Internal Medicine Interventional Cardiology
DX: I25.10 Atherosclerotic heart disease of native coronary artery without angina pectoris (principal); I21.4 Non-ST elevation (NSTEMI) myocardial infarction
CPT/HCPCS: 93798

== ENCOUNTER → 2025-03-03 | Outpatient (CLI) | payer MEDICAID, SELFPAY ==
--- OUTSIDE RECORDS SUMMARY | 2025-02-24 08:32 | XMS RPT_ITS ---
Author Name Auto Generated Organization OHIP Care Team Providers Care Services Rep Name Role Phone CHIOMA RAMOS Attending Unavailable OLEGHE, IFIJEN Primary Care Unavailable [facility] Attending Unavailable OLEGHE, IFIJEN Primary Care Unavailable MARC BROWN Attending Unavailable MARC BROWN Referring Unavailable OLEGHE, IFIJEN Primary Care Unavailable [facility] Attending Unavailable OLEGHE, IFIJEN Primary Care Unavailable [facility] Attending Unavailable OLEGHE, IFIJEN Primary Care Unavailable AISHA MCCRARY Attending Unavailable SIMONE ESCOBAR Attending Unavailable DANA PERALTA Attending Unavailable NIRAJ CASTILLO Referring Unavailable ELIZABETH IZAGUIRRE Admitting Unavaila PRESLEY Vasquez Attending Unavailable OSEI DONALDSONBE B Primary Care Unavailable PROVIDER, UNKNOWN Consulting Unavailable DANA PERALTA Referring Unavailable PROBLEMS DATE TYPE CONDITION / CODE ATTENDING STATUS [facility] 03/16/2022 Admitting Diagnosis Type 2 diabetes mellitus with hyperglycemia (HCC) / E11.65(ICD-10) [facility] 02/24/2025 Admitting Diagnosis Type 2 diabetes mellitus with other specified complication (HCC) / E11.69(ICD-10) [facility] 02/24/2025 Admitting Diagnosis Hyperlipidemia, unspecified / E78.5(ICD-10) [facility] 02/24/2025 Admitting Diagnosis Obesity, class 2 / E66.812(ICD-10) [facility] 02/24/2025 Admitting Diagnosis Morbid (severe) obesity due to excess calories (HCC) / E66.01(ICD-10) [facility] 02/24/2025 Admitting Diagnosis Body mass index (BMI) 35.0-35.9, adult / Z68.35(ICD-10) [facility] 02/24/2025 Admitting Diagnosis Vitamin D deficiency, unspecified / E55.9(ICD-10) [facility] 02/24/2025 Admitting Diagnosis Encounter for therapeutic drug level monitoring / Z51.81(ICD-10) [facility] 02/24/2025 Admitting Diagnosis Type 2 diabetes mellitus with other circulatory complications (HCC) / E11.59(ICD-10) [facility] 02/24/2025 Admitting Diagnosis Hypertension secondary to endocrine disorders / I15.2(ICD-10) [facility] 02/24/2025 Admitting Diagnosis halfway (current) use of insulin (HCC) / Z79.4(ICD-10) [facility] 11/21/2024 Active NSTEMI (non-ST elevated myocardial infarction) (HCC) / I21.4(ICD-10) PRESLEY GROSS [facility] 11/19/2024 Active Postsurgical percutaneous transluminal coronary angioplasty status / Z98.61(ICD-10) PRESLEY GROSS [facility] 10/30/2024 Admitting Diagnosis Body mass index (BMI) 37.0-37.9, adult / Z68.37(ICD-10) [facility] 10/30/2024 Admitting Diagnosis Acute candidiasis of vulva and vagina / B37.31(ICD-10) [facility] 07/08/2024 Active Diabetic gastroparesis (HCC) (HCC) / E11.43(ICD-10) [facility] 07/08/2024 Active Diabetic gastroparesis (HCC) (HCC) / K31.84(ICD-10) [facility] 06/25/2024 Admitting Diagnosis Body mass index (BMI) 38.0-38.9, adult / Z68.38(ICD-10) [facility] PROCEDURES No Procedure Records Found RESULTS OFFICE VISIT Observed: 02/24/2025 8:40 AM Status: COMPLETED Source: [facility] [id number] Wendi Cortes 1975 F Date Provider Department Center 02/24/2025 [id number], [facility] None Family History Problem Relation Age of Onset Diabetes Mother Heart attack Father Stroke Father Diabetes Sister Comments: gestational Liver disease Mother Diabetes Father Family Status - Relation Status Age at Mother Father Alive Sister Alive Brother Alive Level of Service:[id number] AR OFFICE/OUTPATIENT ESTABLISHED MOD MDM 30 MIN Reason for Visit and Comments: Follow-up [997609] Diabetes Mellitus [183] PROGRESS NOTE Observed: 02/24/2025 8:40 AM Status: COMPLETED Source: [facility] [address] [facility] [id number] Dept: [phone] Visit Date: 02/24/2025 HPI: Wendi Cortes is a 49 y.o. female who presents today for: Chief Complaint Patient presents with Follow-up Diabetes Mellitus HPI: was admitted to [facility] with chest pain and NSTEMI. Cardiac catheterization demonstrated severe disease in the proximal LAD and left circumflex. She was referred for percutaneous coronary intervention. She was admitted for NSTEMI and underwent left heart cathetarization which revealed blockages/plaques in Left Anterior Descending and Circumflex for which she had 2 stents placed. DM Onset: 30 y.o Type of DM: 2 Current DM Medications: Metformin 1000 mg twice a day Invokana 100 mg daily Mounjaro 5 mg weekly Missing medication doses: No Has fredo 3 Following Diet for DM: Yes Diet has improved overall No fried foods Following Exercise Regimen: No ADLS, has been going to the gym few times per week Previously Used DM Meds: Yes Insulin during Ozempic- was not tolerable at higher doses Trulicity- ongoing AE, could not tolerate >3 mg dose Victoza- stopped in 2021 and changed to Ozempic Jardiance- yeast infection Invokana- yeast infection Trulicity-GI side effects switched to Mounjaro Complications: Cardiovascular -- Yes- HLP, coronary artery disease, hypertension Statin Use -- Yes on atorvastatin 40 mg daily now Last KRIS/Retina Eval: 06/2024- [facility] Retinopathy -- No Nephropathy -- Yes, albuminuria resolved STEPHAN/ARB Use -- No Polyneuropathy -- No Obesity -- Yes The patient current PCP is Yakov Donaldson MD Past Medical History: Diagnosis Date CAD (coronary artery disease) Diabetes mellitus (HCC) Gastroparesis Hyperlipidemia Type 2 diabetes mellitus (HCC) Vitamin D deficiency Past Surgical History: Procedure Laterality Date BACK SURGERY CERVIX LESION DESTRUCTION TONSILLECTOMY (HISTORICAL) WISDOM TOOTH EXTRACTION Current Outpatient Medications Medication Sig Dispense Refill aspirin 81 MG EC tablet Take 81 mg by mouth in the morning. 1 tablet a day. atorvastatin (Lipitor) 40 MG tablet Take 40 mg by mouth Nightly. Brilinta 90 MG tablet Take 90 mg by mouth 2 times daily. lisinopril 2.5 MG tablet Take 2.5 mg by mouth daily. metoprolol succinate XL (Toprol-XL) 25 MG 24 hr tablet Take 25 mg by mouth daily. omeprazole (PriLOSEC) [address] capsule Take 20 mg by mouth in the morning. canagliflozin (Invokana) 100 MG Take 1 tablet (100 mg) by mouth daily. 1 tablet once a day 90 tablet 3 Continuous Glucose Sensor (FreeStyle Fredo 3 Plus Sensor) misc 1 each daily. Change sensor every 15 days 6 each 3 metFORMIN (Glucophage) 1000 MG tablet Take 1 tablet (1,000 mg) by mouth 2 times daily (with meals). 180 tablet 3 Tirzepatide (Mounjaro) 7.5 MG/0.5ML solution auto-injector Inject 7.5 mg under the skin 1 (one) time per week. 2 mL 3 No current facility-administered medications for this visit. Allergies Allergen Reactions Lisinopril Penicillins Statins Amoxicillin-Pot Clavulanate Rash Family History Problem Relation Name Age of Onset Diabetes Mother Heart attack Father Stroke Father Diabetes Sister gestational Liver disease Mother Diabetes Father Social History Socioeconomic History Marital status: Significant Other Tobacco Use Smoking status: Never Smokeless tobacco: Never Substance and Sexual Activity Alcohol use: Yes Drug use: No Social Drivers of Health Food Insecurity: No Food Insecurity (11/20/2024) Received from [facility] Hunger Vital Sign Worried About Running Out of Food in the Last Year: Never true Ran Out of Food in the Last Year: Never true Transportation Needs: No Transportation Needs (11/20/2024) Received from [facility] PRAPARE - Transportation Lack of Transportation (Medical): No Lack of Transportation (Non-Medical): No Housing Stability: Low Risk (11/20/2024) Received from [facility] Housing Stability Vital Sign Unable to Pay for Housing in the Last Year: No Number of Times Moved in the Last Year: 1 Homeless in the Last Year: No Subjective: Review of Systems All other systems reviewed and are negative. Objective: BP 107/74 Pulse 76 Ht 5' 7.5 (1.715 m) Wt 227 lb (103 kg) BMI 35.03 kg/m? Physical Exam Constitutional: General: She is not in acute distress. Appearance: Normal appearance. She is obese. She is not ill-appearing. HENT: Head: Normocephalic and atraumatic. Nose: Nose normal. Mouth/Throat: Mouth: Mucous membranes are moist. Pharynx: Oropharynx is clear. Eyes: General: No scleral icterus. Extraocular Movements: Extraocular movements intact. Neck: Thyroid: No thyromegaly. Cardiovascular: Rate and Rhythm: Normal rate and regular rhythm. Pulses: Normal pulses. Heart sounds: Normal heart sounds. No murmur heard. Pulmonary: Effort: Pulmonary effort is normal. No respiratory distress. Breath sounds: Normal breath sounds. No stridor. No wheezing, rhonchi or rales. Abdominal: General: Abdomen is flat. There is no distension. Palpations: Abdomen is soft. Tenderness: There is no abdominal tenderness. Musculoskeletal: Cervical back: Neck supple. Right lower leg: No edema. Left lower leg: No edema. Comments: Fredo 3 on left arm Skin: General: Skin is warm. Coloration: Skin is not jaundiced. Findings: No rash. Neurological: Mental Status: She is alert and oriented to person, place, and time. Deep Tendon Reflexes: Reflexes normal. Psychiatric: Mood and Affect: Mood normal. Behavior: Behavior normal. Thought Content: Thought content normal. Judgment: Judgment normal. Diagnostic Workup: Latest Reference Range & Units 02/21/25 09:24 SODIUM 136 - 145 mmol/L 138 POTASSIUM 3.5 - 5.1 mmol/L 4.3 CHLORIDE 98 - 107 mmol/L 105 Carbon Dioxide (CO2) 22 - 29 mmol/L 24 ANION GAP 3 - 13 mmol/L 9 Urea Nitrogen (BUN) 8 - 21 mg/dL 10 Creatinine 0.57 - 1.11 mg/dL 0.77 eGFR >60.0 mL/min/1.73m*2 >90.0 GLUCOSE 74 - 100 mg/dL 164 (H) CALCIUM 8.4 - 10.2 mg/dL 9.3 ALKALINE PHOSPHATASE 40 - 150 U/L 72 ALBUMIN 3.5 - 5.0 g/dL 3.4 (L) TOTAL PROTEIN 6.4 - 8.3 g/dL 7.2 AST <34 U/L 18 ALT <30 U/L 16 BILIRUBIN TOTAL <1.2 mg/dL 0.5 TRIGLYCERIDES <150 mg/dL 106 HDL CHOLESTEROL >=60 mg/dL 43 (L) LOW DENSITY LIPOPROTEIN 0 - <100 mg/dL 60 CHOL/HDL 3 VIT D 25-OH, TOTAL See comment ng/mL 44 HEMOGLOBIN A1C <5.7 %HbA1C 7.0 (H) THYROID STIMULATING HORMONE 0.35 - 4.94 uIU/mL 1.47 T4, FREE 0.70 - 1.48 ng/dL 1.13 (H): Data is abnormally high (L): Data is abnormally low Latest Reference Range & Units 07/18/23 10:49 SODIUM 135 - 145 mmol/L 135 POTASSIUM 3.5 - 5.1 mmol/L 4.2 CHLORIDE 98 - 107 mmol/L 101 Carbon Dioxide (CO2) 22 - 30 mmol/L 27 ANION GAP 3 - 13 mmol/L 7 Urea Nitrogen (BUN) 7 - 17 mg/dL 11 Creatinine 0.52 - 1.04 mg/dL 0.68 eGFR >60.0 mL/min/1.73m*2 >90.0 GLUCOSE 70 - 100 mg/dL 150 (H) CALCIUM 8.4 - 10.4 mg/dL 9.3 ALKALINE PHOSPHATASE - [facility] 38 - 126 U/L 64 ALBUMIN - [facility] 3.5 - 5.0 g/dL 4.3 TOTAL PROTEIN 6.3 - 8.2 g/dL 7.9 AST - [facility] 15 - 46 U/L 22 ALT - [facility] 0 - 34 U/L 17 BILIRUBIN, TOTAL - [facility] 0.2 - 1.3 mg/dL 1.0 TRIGLYCERIDES - [facility] <150 mg/dL 140 HDL CHOLESTEROL - [facility] 40 - 60 mg/dL 55 LOW DENSITY LIPOPROTEIN 0 - <100 mg/dL 100 (H) CHOL/HDL 3 HEMOGLOBIN A1C - [facility] <5.7 % 6.1 (H) THYROID STIMULATING HORMONE 0.465 - 4.680 uIU/mL 2.045 T4, FREE 0.78 - 2.19 ng/dL 1.18 MICROALBUMIN, URINE 0.0 - 29.9 mg/L 10.0 CREATININE, URINE No Range mg/dL 186.2 MICROALBUMIN/CREATININE RATIO 0.0 - 29.9 mg/g 5.4 CHOLESTEROL <200 mg/dL 183 ESTIMATED AVERAGE GLUCOSE mg/dL 128 (H): Data is abnormally high Latest Reference Range & Units 04/10/22 12:07 SODIUM 135 - 145 mmol/L 137 POTASSIUM 3.5 - 5.1 mmol/L 4.4 CHLORIDE 98 - 107 mmol/L 103 CARBON DIOXIDE 22 - 30 mmol/L 27 ANION GAP 3 - 13 mmol/L 7 UREA NITROGEN 7 - 17 mg/dL 12 Creatinine 0.52 - 1.04 mg/dL 0.77 EGFR >60.0 mL/min/1.73m*2 >90.0 Glucose 70 - 100 mg/dL 97 CALCIUM 8.4 - 10.4 mg/dL 9.4 ALKALINE PHOSPHATASE 38 - 126 U/L 68 ALBUMIN 3.5 - 5.0 g/dL 4.2 TOTAL PROTEIN 6.3 - 8.2 g/dL 7.6 AST (SGOT) 15 - 46 U/L 19 ALT 0 - 34 U/L 9 BILIRUBIN, TOTAL 0.2 - 1.3 mg/dL 0.5 CHOLESTEROL <200 mg/dL 168 TRIGLYCERIDE <150 mg/dL 121 HDL CHOLESTEROL 40 - 60 mg/dL 52 LOW DENSITY LIPOPROTEIN 0 - <100 mg/dL 92 HEMOGLOBIN A1C <5.7 % 5.4 THYROID STIMULATING HORMONE 0.465 - 4.680 uIU/mL 1.775 FREE T4 0.78 - 2.19 ng/dL 1.13 MICROALBUMIN, URINE 0.0 - 29.9 mg/L <6.0 CREATININE, URINE No Range mg/dL 83.2 MICROALBUMIN/CREATININE RATIO COMMENT ONLY CHOL/HDL 3 ESTIMATED AVERAGE GLUCOSE mg/dL 108 Assessment: Diagnosis Plan 1. Type 2 diabetes mellitus with hyperglycemia, without long-term current use of insulin ([facility]) metFORMIN (Glucophage) 1000 MG tablet canagliflozin (Invokana) 100 MG Continuous Glucose Sensor (FreeStyle Fredo 3 Plus Sensor) [facility] [place] 2. Type 2 diabetes mellitus with hyperlipidemia (HCC) ([facility]) 3. Class 2 severe obesity with serious comorbidity and body mass index (BMI) of 35.0 to 35.9 in adult, unspecified obesity type ([facility]) 4. Encounter for therapeutic drug monitoring 5. Hypertension associated with diabetes ([facility]) 6. Type 2 diabetes mellitus with hyperglycemia, with long-term current use of insulin ([facility]) Tirzepatide (Mounjaro) 7.5 MG/0.5ML solution auto-injector Plan: 1. Type 2 diabetes mellitus with hyperglycemia, without long-term current use of insulin ([facility]) 2. Type 2 diabetes mellitus with hyperlipidemia (HCC) ([facility]) 3. Class 2 severe obesity with serious comorbidity and body mass index (BMI) of 35.0 to 35.9 in adult, unspecified obesity type (HCC) 4. Encounter for therapeutic drug monitoring 5. Hypertension associated with diabetes ([facility]) 6. Type 2 diabetes mellitus with hyperglycemia, with long-term current use of insulin ([facility]) HbA1c 7% target < 7% Fredo 3 download reviewed she is time in range 100% and most of the blood glucose readings are doing really good with 0% hypoglycemia Will increase Mounjaro to 7.5 mg weekly for weight loss benefit and reduction in A1c Continue metformin 1000 mg twice a day Continue Invokana 100 mg daily I have counseled the patient about the importance of healthy diet and exercise. Continue healthy lifestyle I have counseled the patient about hypoglycemia symptoms and treatment. I have instructed the patient to follow with ophthalmology. Most recent lipid panel was acceptable. Continue statin therapy Blood pressure target less than 130/80 I have addressed the above chronic illnesses including management, progression, and benefits and side effects of treatment. I have reviewed prior records, interpreted test results and discussed management with the patient. Follow up in about 4 months (around 06/26/2025). Chioma Ramos MD 9:16 AM 02/24/25 Pt was eval'd by me on today's date and the note has been electronically signed by me. COMPREHENSIVE METABOLIC PANEL Collected: 02/21/2025 9 :24 AM Status: F Source: [facility] TYPE CODE TESTS RESULT OUT OF RANGE REFERENCE UNITS LAB [id number] SODIUM 138 136-145 mmol/L LAB [id number] POTASSIUM 4.3 3.5-5.1 mmol/L Result Comment: Plasma potas sium values may be up to 0.5 mmol/L lower than serum values. LAB [id number] CHLORIDE 105 98-107 mmol/L LAB 4189422 CARBON DIOXIDE 24 22-29 mmol/L LAB [id number] ANION GAP (OG, CALCULATED) 9 3-13 mmol/L LAB 4857914 UREA NITROGEN 10 8-21 mg/dL LAB 1471247 CREATININE 0.77 0.57-1.11 mg/dL LAB 0803603 GLUCOSE 164 High 74-100 mg/dL LAB [id number] CALCIUM 9.3 8.4-10.2 mg/dL LAB [id number] AST (SGOT) 18 <34 U/L LAB 5727992 ALT 16 <30 U/L LAB 5004780 ALKALINE PHOSPHATASE 72 40-150 U/L LAB 9172988 ALBUMIN 3.4 Low 3.5-5.0 g/dL LAB 8050230 BILIRUBIN, TOTAL 0.5 <1.2 mg/dL LAB [id number] TOTAL PROTEIN 7.2 6.4-8.3 g/dL LAB 8552834 GLOMERULAR FILTRATION RATE ML/MIN/1.73 SQ M.PREDICTED >90.0 >60.0 mL/min/1. 73m*2 Result Comment: Calculation based on the Chronic Kidney Disease Epidemiology Collaboration (CKD-EPI) equation refit without adjustment for race Performed By: #### LAB17, LA B18 #### Plasma Processing Technician: FELIX SANTILLAN ([id number]) [facility] HARRELLAN (SWRLAB) [address] [place] [address] LIPID PANEL Collected: 02/21/2025 9:24 AM Status: F Source: [facility] TYPE CODE TESTS RESULT OUT OF RANGE REFERENCE UNITS LAB 4489902 TRIGLYCERIDE 106 <150 mg/dL LAB 2842028 CHOLESTEROL 124 <200 mg/dL LAB 5299809 HDL CHOLESTEROL 43 Low >=60 mg/dL LAB 8046188 CHOL/HDL 3 Result Comment: Ref Range: < 3 Low Risk for CHD 3-6 Mod Risk for CHD > 6 High Risk for CHD LAB 6287 VERY LOW DENSITY LIPOPROTEIN, CALCULATED 21 <=30 mg/dL LAB 6288 NON-HDL CHOLESTEROL, CALCULATED 81 <130 LAB 1386480 LOW DENSITY LIPOPROTEIN 60 0-<100 mg/dL Performed By: #### LAB17, LUIS B18 #### Plasma Processing Technician: FELIX SANTILLAN ([id number]) [facility] HARRELLAN (SWRLAB) [address] [place] [address] MICROALBUMIN / CREATININE UR INE RATIO Collected: 02/21/2025 9:24 AM Status: F Source: [facility] TYPE CODE TESTS RESULT OUT OF RANGE REFERENCE UNITS LAB 20 CREATININE, URINE 61.9 47.0-110.0 mg/dL LAB 1475009 MICROALBUMIN, URINE <5.0 ug/mL LAB 6374 MICROALBUMIN/ CREATININE RATIO CALC NOT PERFORMED - [facility] Unable to Calculate Result Comment: ORDER COMMEN TS: Microalbumin concentrations <30 are considered normal, 30-300 are considered microalbuminuria (or risk of diabetic nephropathy), and >300 are considered clinical albuminuria (clinical nephropathy). Diabetes Care,27, Supplement 1, S28-90, 2004 Performed By: #### [id number] ## ## Plasma Processing Technician: FELIX SANTILLAN ([id number]) [facility] SALEH [employer] TechYOMIAN (RLAB) [address] [place] [address] HEMOGLOBIN A1C Collected: 02/21/2025 9:24 AM Status: F Source: [facility] TYPE CODE TESTS RESULT OUT OF RANGE REFERENCE UNITS LAB 1906509 HEMOGLOBIN A1C 7.0 High <5.7 %HbA1C Result Comment: Normal less than 5.7% Prediabetes 5.7% to 6.4% Diabetes 6.5% or higher --HgbA1C levels may not be accurate in patients who have renal disease, received recent blood transfusions, are anemic, or who have dyshemoglobinemia. LAB 9719810 ESTIMATED AVERAGE GLUCOSE 154 mg/dL Result Comment: ORDER COMMEN TS: HbA1c values of 5.7-6.4 percent indicate an increased risk for developing diabetes mellitus. HbA1c values greater than or equal to 6.5 percent are diagnostic of diabetes mellitus. For diagnosis of diabetes in individuals without unequivocal hyperglycemia, results should be confirmed by repeat testing. Performed By: #### LAB90 ### # Plasma Processing Technician: FELIX SANTILLAN ([id number]) [facility]ITALTHERESEOrggerAN (ReadyPulseLAB) [address] [place] [address] FREE T4 Collected: 9:24 AM Status: F Source: [facility] TYPE CODE TESTS RESULT OUT OF RANGE REFERENCE UNITS LAB [id number] FREE T4 1.13 0.70-1.48 ng/dL Performed By: #### NPT635, L AB127, [id number] #### Plasma Processing Technician: FELIX SANTILLAN ([id number]) [facility] [employer] (ReadyPulseRLAB) [address] [place] [address] THYROID STIMULATING HORMONE Collected: 02/21/2025 9:2 4 AM Status: F Source: [facility] TYPE CODE TESTS RESULT OUT OF RANGE REFERENCE UNITS LAB [id number] THYROID STIMULATING HORMONE 1.47 0.35-4.94 uIU/mL Performed By: #### [id number], L AB127, [id number] #### Plasma Processing Technician: FELIX SANTILLAN ([id number]) [facility] [employer] (RLAB) [address] [place] [address] VITAMIN D DEFICIENCY SCREENI NG (VIT D 25) Collected: 02/21/2025 9:24 AM Status: F Source: [facility] TYPE CODE TESTS RESULT OUT OF RANGE REFERENCE UNITS LAB [id number] VIT D 25-OH, TOTAL 44 See comment ng/mL Result Comment: ORDER COMMEN TS: Target concentration: 30 - 40 ng/mL; toxicity seen at concentrations >100 ng/mL Less than 20 ng/mL: Indicative of Vit D deficiency Test performed by [employer], measuring Total Vitamin D, not individual fractions. Performed By: #### TKN104, L AB127, RGQ219 #### Plasma Processing Technician: FELIX SANTILLAN ([id number]) [facility] PATRICE (SWRLAB) [address] [place] [address] 36 Observed: 11/26/2024 3:36 PM Status: COMPLETED Source: [facility] Spoke with the pharmacist juan daniel cornell clarified the instruction for the injection. 36 Observed: 11/26/2024 3:30 PM Status: COMPLETED Source: [facility] Mounjaro was to be 5 mg week ly, I updated the prescription today The last fill as for the 5 mg dose on 10/31/24 It does not come in 2 mg dose 36 Observed: 11/26/2024 3:03 PM Status: COMPLETED Source: [facility] We got a script clarificatio n for Mounjaro saying Tirzepatide (Mounjaro) 5 MG/0.5ML solution auto-injector; Inject 2 mg under the skin 1 (one) time per week, this is also on the recent chart note(10/30/2024) But in the new script it says Tirzepatide (Mounjaro) 5 MG/0.5ML solution auto-injector; Inject 5 mg under the skin 1 (one) time per week. I did not see any TE regarding the change. Please clarify. [id number] Observed: 11/26/2024 11:12 AM Status: COMPLETED Source: [facility] [employer] [facility] Please advise Pulled fredo report if needed. Thank you! CNDS Observed: 11/21/2024 3:52 PM Status: COMPLETED Source: [facility] HNO ID: [id number] Author: PRESLEY GROSS MD Service: Hospital Medicine Author Type: Physician Type: Discharge Summary Filed: 11/21/2024 15:52 Note Text: DISCHARGE SUMMARY PATIENT NAME: Baylee Cortes Code Status: Full Code Highest Readmission Risk Score: 10 The 30 day readmissions risk score is derived from an internally validated risk model which evaluates patient level characteristics, utilization history, medication orders and lab results up until the day of discharge. Patients with a score of 39 or above are considered highest risk for readmission. Specific patient level drivers will be listed at the bottom of the summary. Admission Information Admission Information ADMIT DATE: 11/19/2024 DISCHARGE DATE: 11/21/24 MY DOCTORS AND MEDICAL TEAM: My Main Hospital Doctor: Presley Gross MD Primary Care Provider: Britney Donaldson MD My Medical Team Members: Treatment Team: Attending Provider: Presley Gross MD Consulting: Cynthia Gilliland MD Primary Service: RAMBO CLAROS MY CONDITION AT DISCHARGE: Stable REASON I WAS IN THE HOSPITAL: NSTEMI SUMMARY OF WHAT HAPPENED WHILE I WAS IN THE HOSPITAL: Mr Baylee Cortes is a 49-year-old woman with with diabetes and strong family history of premature coronary disease who was admitted to [facility] with chest pain and NSTEMI. Cardiac catheterization demonstrated severe disease in the proximal LAD and left circumflex. She was referred for percutaneous coronary intervention. She was admitted for NSTEMI and underwent left heart cathetarization which revealed blockages/plaques in Left Anterior Descending and Circumflex for which she had 2 stents placed. She also had an echo done with which revealed ejection fraction of 34%. She was started on guideline directed medical therapy and will continue anti-platelet medications on discharge. Patient will follow up with her outpatient external grinder and cardiac rehab. OTHER PROBLEMS/DIAGNOSIS: Principal Problem: NSTEMI (non-ST elevated myocardial infarction) ([facility]) Active Problems: HTN (hypertension) HLD (hyperlipidemia) DM2 (diabetes mellitus, type 2) ([facility]) Obesity Resolved Problems: * No resolved hospital problems. * OPERATIONS PERFORMED WHILE IN THE HOSPITAL: IMPORTANT TEST/PROCEDURES: ECHO 11/20/24 CONCLUSIONS: - Exam indication: Shortness of Breath - The left ventricle is mildly dilated. There is no left ventricular hypertrophy. Left ventricular systolic function is moderately decreased. EF = 34 ? 5% (2D biplane) Definity contrast used for endocardial border detection. Left ventricular diastolic function was not evaluated due to E/A fusion. - The right ventricle is normal in size. Right ventricular systolic function is normal. Tricuspid annular displacement is 2.1 cm. - There are no significant valvular abnormalities. - The patient has not had a prior CC echocardiographic exam for comparison. CARDIAC CATH 11/20/24 RECOMMENDATIONS: Continue DAPT for the course of 1 year Referral to cardiac rehab Follow-up with Dr. Castillo in 2 to 3 weeks Pre-Procedure Diagnosis: 49-year-old woman with insulin requiring diabetes and strong family history of premature coronary disease who was admitted to [facility] with chest pain and NSTEMI. Cardiac catheterization demonstrated severe disease in the proximal LAD and left circumflex. She was referred for percutaneous coronary intervention Post- Procedure Diagnosis: Significant proximal LAD lesion, dFFR 0.88, treated with Cutting Balloon angioplasty and IVUS assisted drug-eluting stent placement. Severe disease proximal nondominant left circumflex treated with balloon angioplasty and drug-eluting stent placement under ultrasound guidance. Procedure: Percutaneous coronary invention Access: Right Radial Artery TEST RESULTS NOT AVAILABLE AT THIS TIME: No pending results Activity When You Leave the Hospital May use stairs No lifting greater than 5-10 pounds for 5-7 days No walking restrictions Other: No strenuous activity until seen in cardiology follow up. Casual walking is fine. No tub baths x 1 week Diet Instructions Diabetic Low Cholesterol Low Fat Low Salt Wound/Surgical Site Care Any bruising and bumps should disappear within 3-4 days Avoid lotions or powders Check your wound every day If the bruising expands or the bump enlarges please call your doctor Some bruising, soreness or a small bump under the skin at the inserion site is normal Wash your wound area with mild soap and water daily and gently pat dry with a towel Call Your Doctor If There is severe pain at the operative site You have lightheadedness, fainting, or confusion You have redness, swelling, pus or drainage from the wound Your temperature is greater than 101F Additional Provider to Provider Information: Treatment Team: Attending Provider: Presley Gross MD Consulting: Cynthia Gilliland MD Primary Service: [facility] Problems Diagnosis POA HTN (hypertension) Yes HLD (hyperlipidemia) Yes DM2 (diabetes mellitus, type 2) (HCC) Yes Obesity Yes Resolved Hospital Problems Diagnosis POA NSTEMI (non-ST elevated myocardial infarction) (HCC) Yes Transitions of Care Critical Issues: LABS AND PROCEDURES PENDING AT DISCHARGE: No pending results. FOLLOW-UP APPOINTMENTS ALREADY SCHEDULED WITH A [facility] PROVIDER: No future appointments. ALLERGIES Allergen Reactions Amoxicillin-Pot Cla* Hives Augmentin allergy per admission orders (= itching, hives LDRP/FLORIDALMA) 0816 11/26/2006JO Augmentin [Amoxicil* Rash DISCHARGE MEDICATION: Medication List START taking these medications aspirin 81 mg chewable tablet Take 1 tablet by mouth once daily. Start taking on: November 22, 2024 atorvastatin 40 mg tablet Commonly known as: LIPITOR Take 1 tablet by mouth daily at bedtime. lisinopril 2.5 mg tablet Take 1 tablet by mouth once daily. Patient should start on November 22, 2024. Start taking on: November 22, 2024 metoprolol succinate ER 25 mg 24 hr tablet Commonly known as: TOPROL XL Take 1 tablet by mouth once daily. ticagrelor 90 mg tablet Commonly known as: BRILINTA Take 1 tablet by mouth two times a day. CHANGE how you take these medications metFORMIN 1,000 mg tablet Commonly known as: GLUCOPHAGE What changed: Another medication with the same name was removed. Continue taking this medication, and follow the directions you see here. CONTINUE taking these medications fluconazole 150 mg tablet Commonly known as: DIFLUCAN FREESTYLE FREDO 3 SENSOR [place] Generic drug: Blood-Glucose Sensor INVOKANA 100 mg tab Generic drug: canagliflozin omeprazole 40 mg capsule Commonly known as: PriLOSEC PARAGARD T 380A 380 square mm intrauterine device Generic drug: copper WELLBUTRIN ORAL STOP taking these medications ALEVE 220 mg tablet Generic drug: naproxen sodium glimepiride 4 mg tablet Commonly known as: AMARYL GLYBURIDE ORAL pravastatin 10 mg tablet Commonly known as: PRAVACHOL SIMVASTATIN ORAL ASK your doctor about these medications TRULICITY 1.5 mg/0.5 mL pen injector Generic drug: dulaglutide Where to Get Your Medications These medications were sent to e- [facility]/pharmacy #[id number] - [place] [address] - [address] [facility] - [phone] [place] [id number] atorvastatin 40 mg tablet lisinopril 2.5 mg tablet metoprolol succinate ER 25 mg 24 hr tablet ticagrelor 90 mg tablet You can get these medications from any pharmacy You don't need a prescription for these medications aspirin 81 mg chewable tablet Additional Information Additional Health Information I Need to Know After I Leave the Hospital Symptoms of Acute MA (Myocardial Infarction) to Watch for Include: Chest Pain Medication Information for My Acute MA: - Aspirin Therapy Prescribed at Discharge - Beta Neelima Therapy Prescribed at Discharge - Statin Prescribed at Discharge The patient's risk for 30-day readmission is determined using the following contributing factors: Predictive Model Details 9% (Low) Factor Value Calculated 11/21/2024 05:21 13% Admission Provider Speciality ADMITTING [facility] READMISSION RISK Model -13% Admissions (365d) 1 -12% Diagnosis Count 5 -9% [facility] -9% RDW (Max) 12.3 -8% ED visits (365d) 0 -8% Liane Batista 4 -6% Albumin (Avg) N/A -6% ED Encounter No -6% Observations (365d) 0 I have performed the [id number] and relevant services for a total of 45 minutes. SIGNATURE: Presley Gross MD DATE: November 21, 2024 TIME: 3:52 PM PROGRESS Observed: 11/21/2024 3:31 PM Status: COMPLETED Source: [facility] HNO ID: [id number] Author: YULIANA YEUNG APRN.CNP Service: Cardiovascular Surgery Author Type: Nurse Practitioner Type: Progress Notes Filed: 11/21/2024 15:56 Note Text: PROGRESS NOTE INTERVENTIONAL CARDIOLOGY SERVICE SERVICE DATE: 11/21/2024 SERVICE TIME: 3:31 PM Subjective 49 yo female with PMX of DM, HTN, HLD, strong family hx of premature CAD presented to [facility] with NSTEMI. Cardiac catheterization demonstrated severe disease in the proximal LAD and left circumflex. She was referred to [facility] for further eval. Subsequent cardiac catheterization with Dr. Gilliland yesterday revealed significant proximal LAD lesion, dFFR 0.88,and severe disease to proximal left circ. Underwent PCI x2 to LAD and Lcx, right radial approach, tolerated procedure well. INTERIM HISTORY: Pt seen and examined on 4200, fiance at bedside. Had some nausea post procedure requiring zofran which has since resolved. Does note a slight inability to get full deep breath in over night. No c/o sob, chest pain, palpitations, lightheadedness or dizziness. VSS. SBP this am 91/90 so am metoprolol 25 mg was held. Currenty 105 SR on tele. 96% on RA, afebrile. Review of Systems Constitutional: Negative for chills, decreased appetite, fever and malaise/fatigue. HENT: Negative for nosebleeds. Cardiovascular: Negative for chest pain, dyspnea on exertion, leg swelling, orthopnea, palpitations, paroxysmal nocturnal dyspnea and syncope. Respiratory: Positive for shortness of breath. Negative for cough, sputum production and wheezing. Musculoskeletal: Negative for falls. Gastrointestinal: Negative for abdominal pain, heartburn, nausea and vomiting. Genitourinary: Negative for dysuria and frequency. Objective PHYSICAL EXAM Physical Exam Vitals reviewed. Constitutional: General: She is not in acute distress. Appearance: She is obese. She is not ill-appearing. HENT: Head: Normocephalic and atraumatic. Right Ear: External ear normal. Left Ear: External ear normal. Nose: Nose normal. Eyes: General: No scleral icterus. Extraocular Movements: Extraocular movements intact. Conjunctiva/sclera: Conjunctivae normal. Cardiovascular: Rate and Rhythm: Regular rhythm. Tachycardia present. Pulses: Carotid pulses are 1+ on the right side and 1+ on the left side. Radial pulses are 2+ on the right side and 2+ on the left side. Posterior tibial pulses are 1+ on the right side and 1+ on the left side. Heart sounds: Normal heart sounds, S1 normal and S2 normal. Pulmonary: Effort: Pulmonary effort is normal. Breath sounds: Normal breath sounds. Abdominal: General: Bowel sounds are normal. Palpations: Abdomen is soft. Musculoskeletal: Right lower leg: No edema. Left lower leg: No edema. Skin: General: Skin is warm and dry. Comments: Dressing removed from right radial site, healed access site, no hematoma, bruising, drainage, edema, or pain. JAMIE Neurological: General: No focal deficit present. Mental Status: She is alert and oriented to person, place, and time. Psychiatric: Mood and Affect: Mood normal. O2 Therapy: Room Air No data recorded VITALS Patient Vitals for the past 24 hrs: BP Temp Temp src Pulse Resp SpO2 11/21/24 1120 97/68 -- -- 97 -- 100 % 11/21/24 1119 -- 36.2 ?C (97.1 ?F) Temporal -- -- -- 11/21/24 0723 91/70 36.2 ?C (97.1 ?F) Temporal 94 18 97 % 11/20/24 2251 114/75 -- -- 103 16 96 % 11/20/246 -- -- -- -- 14 -- 11/20/24 1933 133/88 37 ?C (98.6 ?F) Oral 104 16 100 % Body mass index is 37.12 kg/m?. MEDICATIONS Current Facility-Administered Medications Medication Dose Route Frequency aspirin 81 mg chewable tab(s) 81 mg ORAL DAILY atorvastatin 40 mg tab(s) (LIPITOR) 40 mg ORAL AT BEDTIME dextrose 15 gram/32 mL 15 g (TRUEPLUS) 15 g ORAL PRN Or glucagon 1 mg injection 1 mg INTRAMUSCULAR PRN Or dextrose 10% iv bolus 12.5 g INTRAVENOUS PRN NaCl 0.9% iv flush bag 20 mL INTRAVENOUS PRN acetaminophen 650 mg tab(s) (TYLENOL) 650 mg ORAL q 4 H PRN aluminum-magnesium hydroxide-simethicone 200-200-20 mg/5 mL 30 mL 30 mL ORAL q 6 H PRN ondansetron (PF) 4 mg injection (ZOFRAN) 4 mg INTRAVENOUS q 6 H PRN sodium chloride 0.9 % (flush) 2-10 mL (BD POSIFLUSH) 2-10 mL INTRAVENOUS DIRECTED PRN nitroglycerin sublingual 0.4 mg tab(s) (NITROQUICK) 0.4 mg SUBLINGUAL q 5 MIN PRN atropine 0.4 mg injection 0.4 mg INTRAVENOUS PRN(NO DISPENSE) ticagrelor 90 mg tab(s) (BRILINTA) 90 mg ORAL BID morphine 2 mg injection 2 mg INTRAVENOUS q 4 H PRN insulin lispro injection (rapid acting) (ADMElog) SUBCUTANEOUS w MEALS insulin lispro injection (rapid acting) (ADMElog) SUBCUTANEOUS AT BEDTIME prochlorperazine 5 mg injection (COMPAZINE) 5 mg INTRAVENOUS q 6 H PRN metoprolol succinate ER 25 mg tab(s) (TOPROL XL) 25 mg ORAL DAILY [START ON 11/22/2024] lisinopril 2.5 mg tab(s) 2.5 mg ORAL DAILY LABS Past 72 Hour Labs: Recent Labs 11/21/24 0520 11/20/24 0448 11/19/24 2306 11/19/24 2306 WBC 13.30* 12.86* -- 12.72* RBC 5.39* 5.01 -- 5.15 HB 16.2* 15.4 -- 15.7* HCT 48.8* 45.3 -- 45.7 MCV 90.5 90.4 -- 88.7 MCH 30.1 30.7 -- 30.5 MCHC 33.2 34.0 -- 34.4 RDWCV 12.2 12.1 -- 12.3 PLT 346 345 -- 320 MPV 9.6 10.5 -- 9.8 GLUC 171* 168* < > -- BUN 10 9 < > -- CREAT 0.75 0.66 < > -- NA 132* 135* < > -- K 4.2 4.1 < > -- CHLOR 97* 99 < > -- CO2 17* 19* < > -- CA 9.1 9.2 < > -- PTSEC -- -- -- 10.9 APTT -- 36.5* -- 29.1 INR -- -- -- 1.0 < > = values in this interval not displayed. Last Lab Drawn: No results found for: TROPI No results found for: PBNP Triglyceride 232 11/20/2024 HDL Cholesterol 54 11/20/2024 LDL Cholesterol, Calculated 85 11/20/2024 Cholesterol, Total 177 11/20/2024 Diagnostics Echocardiogram 11/20/24 CONCLUSIONS: - Exam indication: Shortness of Breath - The left ventricle is mildly dilated. There is no left ventricular hypertrophy. Left ventricular systolic function is moderately decreased. EF = 34 ? 5% (2D biplane) Definity contrast used for endocardial border detection. Left ventricular diastolic function was not evaluated due to E/A fusion. - The right ventricle is normal in size. Right ventricular systolic function is normal. Tricuspid annular displacement is 2.1 cm. - There are no significant valvular abnormalities. - The patient has not had a prior CC echocardiographic exam for comparison. Cardiac Catheretization 11/20/24 RECOMMENDATIONS: Continue DAPT for the course of 1 year Referral to cardiac rehab Follow-up with Dr. Castillo in 2 to 3 weeks Pre-Procedure Diagnosis: 49-year-old woman with insulin requiring diabetes and strong family history of premature coronary disease who was admitted to [facility] with chest pain and NSTEMI. Cardiac catheterization demonstrated severe disease in the proximal LAD and left circumflex. She was referred for percutaneous coronary intervention Post- Procedure Diagnosis: Significant proximal LAD lesion, dFFR 0.88, treated with Cutting Balloon angioplasty and IVUS assisted drug-eluting stent placement. Severe disease proximal nondominant left circumflex treated with balloon angioplasty and drug-eluting stent placement under ultrasound guidance. Procedure: Percutaneous coronary invention Access: Right Radial Artery Under Local anesthesia the Right Radial Artery was entered by Modified Seldinger's technique using a micro puncture needle. A 6F sheath was introduced into the Right Radial Artery . Patient was administered 10,000 units of heparin. An EBU 3.5 guiding catheter was seated into the left main coronary artery. An FFR wire was passed in the LAD. The lesion was significant with a dFFR of 0.88. Initial balloon inflations were done with a 3.0 x 20 mm Emerge balloon. IVUS images were obtained. Further predilatation was performed using a 3.5 x 15 mm Newnan balloon inflated to 14 thomas. A 3.0 x 38 mm Synergy stent was deployed in the lesion. The stent was postdilated using a 3.5 x 15 mm NC Emerge balloon inflated to 16 thomas. Further postdilatation was performed using a 3.75 x 8 mm NC Emerge balloon inflated to 16 thomas. A Scion Blue wire was passed in the left circumflex. Initial balloon inflations were done with a 3.0 x 20 mmEmerge balloon. IVUS images were obtained. A 3.5 x 16 mm Synergy stent was deployed from the ostium left circumflex to the proximal vessel. Stent was postdilated using 3.75 x 8 mm NC Emerge balloon followed by 4.0 x 8 mm NC Emerge balloon. Both inflated to 16 thomas. Final angiograms were obtained. The sheath was removed and hemostatsis was established using TR band closure device. There was no bleeding at the end of the procedure. The pt was returned to the recovery room in a stable condition. Assessment/Plan NSTEMI (non-ST elevated myocardial infarction) (HCC) (POA: Yes) - NSTEMI presentation 11/18/24 with troponin elevation 361>353>369 - CXR without acute abnormality. - Cardiac cath 11/19/24 images uploaded. Significant disease to LAD and circumflex. - Cardiac cath 11/20/24 ->Significant proximal LAD lesion, dFFR 0.88, treated with Cutting Balloon angioplasty and IVUS assisted drug-eluting stent placement. Severe disease proximal nondominant left circumflex treated with balloon angioplasty and drug-eluting stent placement under ultrasound guidance. - currently without anginal or CHF complaints - continue on ASA 81 mg BID indefinitely - Brilinta 90 mg BID for at least 1 year and then will leave to discression of established external grinder - suspect some resp reports of inability to get full deep breath in is 2/2 brilinta, pt advised on potential side effect which may subside. Wishes to continue on, will report any worsening symptoms once discharged. - referral to cardiac rehab phase II placed- she will do in [place] - Follow up with Dr. Castillo in 2-3 weeks already set per patient (early December) HTN (hypertension) (POA: Yes) - 120/79 (was 91-130 SBP over night ) - goal <130/90 - DASH, low sodium diet encouraged - change metoprolol 25 BID to Toprol 25 once daily - start low dose lisinopril ( of note was not on HTN meds prior to admission. Was on STEPHAN-I in past with upper body myalgias) Ischemic cardiomyopathy - no s/sx of CHF, fluid over load or decompensation - EF 34% - reviewed with patient at length including GDMT, s/sx of CHF to report - Toprol and STEPHAN-I as above (she wants to re trial lisinopril) - Will defer SGLT2 inhibitor initiation to pt established cards/endo as she is already on multiple oral DM meds) HLD (hyperlipidemia) (POA: Yes) - continues on high intensity statin Lipitor 40 mg daily - DC home simvastatin - LDL 85 on 11/20/24 DM2 (diabetes mellitus, type 2) (HCC) (POA: Yes) - currently on SSI Lispro - HgA1C pending Reviewed all testing, labs, medications, home going medication and post cath instructions with pt and fiance who verbalized understanding. Primary receiving team member present and up to date as well. Cardiology will sign off, ok to discharge to home from our perspective. Yuliana Yeung APRN.CNP SIGNATURE: Yuliana Yeung APRN.CNP PATIENT NAME: Baylee Cortes DATE: November 21, 2024 TIME: 3:31 PM PAGER/CONTACT #: [phone] PT ED Observed: 11/21/2024 3:03 PM Status: COMPLETED Source: [facility] HNO ID: [id number] Author: KIRT BOWERS DTR Service: Nutrition Therapy Author Type: Manager Resort Type: Patient Education Filed: 11/21/2024 15:04 Note Text: NUTRITION THERAPY PATIENT EDUCATION SERVICE DATE: 11/21/2024 SERVICE TIME: 1012 TOPIC: Diet: Heart Healthy LEARNING ASSESSMENT Individuals Assessed: Patient Preferred Learning Method: No Preference Barriers to Learning: None Evident LEARNING RESPONSE Instruction Provided to: Patient Patient / Family Response: Verbalizes Understanding Method of Instruction: Teach Back . Individual instruction Written instruction/Handouts Verbal instruction Material(s) Provided to Patient: Education Materials Provided Nutrition Education CCHS: Your Sodium Controlled Mediterranean MNT Billing: $ Routine Care : 1 unit SIGNATURE: Kirt Bowers DTR PATIENT NAME: Baylee Cortes DATE: November 21, 2024 TIME: 3:03 PM PAGER: CASE MANAGEM Observed: 11/21/2024 12:53 PM Status: COMPLETED Source: [facility] HNO ID: [id number] Author: LAYO MEDEIROS LSW Service: Care Management Author Type: Gastroenterology Professor Type: Care Mgt Progress Note Filed: 11/21/2024 12:54 Note Text: CARE MANAGEMENT PROGRESS NOTE SERVICE DATE: 11/21/2024 SERVICE TIME: 12:53 PM LOS: 1 day Chart reviewed. Plan for home once stable, family to transport. SIGNATURE: JANAE Bender PATIENT NAME: Baylee Cortes DATE: November 21, 2024 TIME: 12:53 PM Ext [id number] CBC PNL BLD AUTO Collected: 11/21/2024 5:20 AM Statu s: F Source: [facility] Order Comment: Specimen Type : BLOOD SPECIMEN Ordering Facility: [facility] Address: [address] [place] [address] TYPE CODE TESTS RESULT OUT OF RANGE REFERENCE UNITS LAB 6690-2(LOINC) WBC # Bld Auto 13.30 High 3.70-11.00 k/uL LAB 789-8(LOINC) RBC # Bld Auto 5.39 High 3.90-5.20 m/ uL LAB 718-7(LOINC) Hgb Bld-mCnc 16.2 High 11.5-15.5 g/dL LAB 4544-3(LOINC) Hct VFr Bld Auto 48.8 High 36.0-46.0 % LAB 787-2(LOINC) MCV RBC Auto 90.5 80.0-100.0 fL LAB 785-6(LOINC) MCH RBC Qn Auto 30.1 26.0-34.0 pg LAB 786-4(LOINC) MCHC RBC Auto-mCnc 33.2 30.5-36.0 g/dL LAB 22790-6(LOINC) RDW RBC-Rto 12.2 11.5-15.0 % LAB 777-3(INC) Platelet # Bld Auto 346 150-400 k/uL LAB 45737-5([facility]) PMV Bld Auto 9.6 9.0-12.7 fL LAB 771-6([facility]) nRBC # Bld Auto <0.01 <0.01 k/uL Performed By: #### [id number] # ### [facility] CLIA [id number] [address] [place] OF [facility] BAS METAB 1997 PNL SERPL Collected: 5:20 AM Status: F Source: [facility] Order Comment: Specimen Type : BLOOD SPECIMEN Ordering Facility: [facility] Address: [address] [place] [address] TYPE CODE TESTS RESULT OUT OF RANGE REFERENCE UNITS LAB 2345-7(INC) Glucose SerPl-mCnc 171 High 74-99 mg/dL Result Comment: The [place] Diabetes Association (ADA) provides guidance for cutoff values for fasting glucose and random glucose. The ADA defines fasting as no caloric intake for at least 8 hours. Fasting plasma glucose results between 100 to 125 mg/dL indicate increased risk for diabetes (prediabetes). Fasting plasma glucose results greater than or equal to 126 mg/dL meet the criteria for diagnosis of diabetes. In the absence of unequivocal hyperglycemia, results should be confirmed by repeat testing. In a patient with classic symptoms of hyperglycemia or hyperglycemic crisis, random plasma glucose results greater than or equal to 200 mg/dL meet the criteria for diagnosis of diabetes. Reference: Standards of Medical Care in Diabetes 2016, [place] [employer]. Diabetes Care. 2016.39(Suppl 1). LAB 3094-0(LOINC) BUN SerPl-mCnc 10 7-21 mg/ dL LAB 2160-0(LOINC) Creat SerPl-mCnc 0.75 0.58-0.96 mg/dL LAB 2951-2(LOINC) Sodium SerPl-sCnc 132 Low 136-144 mmol/L LAB 2823-3(LOINC) Potassium SerPl-sCnc 4.2 3.7-5.1 mmol/L LAB 2075-0(LOINC) Chloride SerPl-sCnc 97 Low 98-107 mmol/L LAB 2028-9(LOINC) CO2 SerPl-sCnc 17 Low 22-30 mmo l/L LAB 1863-0(LOINC) Anion Gap4 SerPl-sCnc 18 High 8-15 mmol/L LAB 35404-3(LOINC) Calcium SerPl-mCnc 9.1 8.5-10.2 mg/dL LAB 62020-1(LOINC) Creatinine + eGFR Pnl SerPlBld 99 >=60 mL/min/1. 73m??? Result Comment: Estimated Gl omerular Filtration Rate (eGFR) is calculated using the 2020 CKD-EPI creatinine equation. This equation utilizes serum creatinine, sex, and age as parameters. The creatinine assay has traceable calibration to isotope dilution-mass spectrometry. Refer to KDIGO guidelines for clinical interpretation. In patients with unstable renal function, e.g. those with acute kidney injury, the eGFR may not accurately reflect actual GFR. Performed By: #### [id number] # ### [facility] CLIA [id number] [address] OF [facility] PROGRESS Observed: 11/20/2024 3:40 PM Status: COMPLETED Source: [facility] HNO ID: [id number] Author: JORGE MOORE MD Service: Hospital Medicine Author Type: Physician Type: Progress Notes Filed: 11/20/2024 15:43 Note Text: Patient was admitted by cardiac team due to chest pain and NSTEMI Patient underwent cardiac catheterization which showed severe disease in the proximal LAD and left circumflex, she was referred for PCI Patient had 2 stents placed Seen after procedure, feeling a little nauseous and some chest pain/discomfort Fiance at bedside Denies any dizziness or lightheadedness Medicated with Zofran and morphine Denies any other complaints Cardiology follow-up Will continue to follow I did educate her A1c came at 7.5, needs better blood sugar control Continue aspirin 81 mg daily, atorvastatin 40 mg daily, Brilinta 90 mg twice daily, metoprolol 25 mg twice daily Continue current insulin regimen ALLIED HEALTH Observed: 11/20/2024 3:31 PM Status: COMPLETED Source: [facility] HNO ID: [id number] Author: BETHANY ALONSO RN Service: Cardiac Rehab Author Type: Registered Nurse Type: Allied Health Filed: 11/20/2024 15:33 Note Text: CARDIAC REHABILITATION PATIENT EDUCATION PROGRESS NOTE Name: Baylee Cortes Date of Service: 11/20/24 Time of Service: 1514 ASSESSMENT: Risk Factors Identified: Diabetic: Non-Insulin Dependent Family History Obesity RECOMMENDATIONS: Patient interested in Phase II Outpatient Cardiac Rehab: Yes. Facility Preferred: [place] DIAGNOSIS: Percutaneous Cardiac Intervention: KIKI PCI Teaching Points: -Activity/Physical Exercise Recommendations -Outpatient Cardiac Rehabilitation READINESS TO LEARN: Cognitive Ability: Alert and Oriented Motivation to Learn: Interested Family Support: High - Very involved in pt care Instruction Provided To: Patient and Significant Other Patient Learns Best By: Individual Instruction, Written Instruction - Hand-outs, and Verbal Instruction Factors Affecting Learning: None Physical Limitations Affecting Learning: None LEARNING RESPONSE: Method Of Instruction: Individual instruction Written instruction/Handouts Verbal instruction Patient/Family Response: Verbalizes understanding of: cardiac rehab Follow-up Plan: No further educational needs identified at this time. Instructional Aids Used: Cardiac Rehabilitation Brochure List of [facility] [facility] Signature: Bethany Alonso RN Pager: [phone] Date: November 20, 2024 Time: 3:31 PM CASE MGT SMITHA HILTON Observed: 11/20/2024 3:15 PM Status: COMPLETED Source: [facility] HNO ID: [id number] Author: LAYO MEDEIROS LSW Service: Care Management Author Type: Gastroenterology Professor Type: Care Mgt Initial Assessment Filed: 11/20/2024 15:20 Note Text: CARE MANAGEMENT: ASSESSMENT AND DISCHARGE PLAN SERVICE DATE: November 20, 2024 SERVICE TIME: 3:16 PM PCP: No primary care provider on file. Primary Contact: Extended Emergency Contact Information Primary Emergency Contact: Andrea Martin Address: [address] [place] Relation: Significant other Admission Status: Inpatient [facility] Discharge Planning requested by: Per Department Practice Potential Transition Plans Home Advance Directives Current Advance Directive: None Press Set Up Person Attempted to Assist with AD Completion: Yes Action: Education Provided Current Living Arrangements and Support Lives with: Spouse/significant other Type of Residence: Private Residence (House) Does the patient have to climb stairs at home?: No Support: Friends/neighbors, Family members How do you manage to accomplish the following: Independent: Ambulation, Bathe/Shower, Dress, Meals/Meal Prep, Going to the bathroom, Medication Management, Transportation to appointments/community Current Services/Equipment Current Post-Acute Service(s): DME Current DME Type: Cane, Walker Discharge Planning Patient Goal(s): Increase strength, Be able to go home Hope [place] of Choice Explained: Hope [place] of Choice Given: No Reason Not Given: No placements necessary Are you interested in bedside delivery of your medications? No Discharge Planning Participant(s): Patient Patient/Family Comments: NSTEMI Caregiver Assessment: Transport at Discharge: Transportation Arrangements: Car Date of Trip: 11/21/24 Needs Prior to Discharge: Needs Prior to Discharge: To Be Determined, OT/PT Evaluation, Discharge Transportation Post-Acute Discharge Plan: Home SW met with pt at bedside. Pt from home with spouse and children, work, drive, plan for home once stable. Owns walker, cane, doesn't use, refused KINGA/AOD. Does do marijuana sometimes on occasion. Plan for poss home 11/21 with family to transport. SIGNATURE: JANAE Bender PATIENT NAME: Baylee Cortes DATE: November 20, 2024 TIME: 3:15 PM Ext [id number] ECHO Observed: 11/20/2024 1:47 PM Status: F Source: [facility] Echocardiography Report: Tra nsthoracic Echo [facility] Date of service: 11/20/2024 1:47:13 PM [facility] Ordering physician: ELIZABETH IZAGUIRRE Indication: Shortness of Breath Technologist: Tash Martinez [facility] Interpreting physician: Christian Dubois MD PATIENT: Name: BAYLEE CORTES : 1975 Age: 49 years Gender: F History of diabetes mellitus. Previous cardiovascular interventions: PCI (11/2024) Primary rhythm: sinus. Height: 170.20 cm BSA: 2.24 m Weight: 106.40 kg BMI: 36.7 kg/m Heart rate 90 bpm Blood pressure 144/95 mmHg Color Doppler was utilized to interrogate the cardiac valves assessed in this exam. MEASUREMENTS: Value Indexed Normal Max aortic dimension 3.3 cm Ao < 3.8 Left atrial volume 40 ml (biplane A-L) 18 ml/m Mila <= 34 LV ID (diastole) 4.8 cm (2D) 2.13 cm/m LV ID (systole) 4.0 cm (2D) 1.76 cm/m IVS, leaflet tips 1.1 cm (2D) Posterior wall thickness 0.9 cm (2D) Left ventricular mass 173 g (2D) 77 g/m LV stroke volume 48 ml (2D biplane) LV end diastolic volume 140 ml (2D biplane) 62.3 ml/m 29<=EDVi<62 LV end systolic volume 92 ml (2D biplane) 40.8 ml/m Ejection Fraction 34 % (2D biplane) EF > 54 FINDINGS: LEFT VENTRICLE The left ventricle is mildly dilated. There is no left ventricular hypertrophy. Left ventricular systolic function is moderately decreased regionally. Left ventricular diastolic function was not evaluated due to E/A fusion. Definity contrast used for endocardial border detection. Wall Motion: The mid and distal anterior wall, mid and distal lateral wall, mid anterolateral segment, and apex are severely hypokinetic. The mid and distal anterior septum is mildly hypokinetic. All remaining scored segments are normal. RIGHT VENTRICLE The right ventricle is normal in size. Right ventricular systolic function is normal. RV systolic tissue Doppler velocity is 14.4 cm/s. Tricuspid annular displacement is 2.1 cm. Estimated right ventricular systolic pressure is not reported due to an insufficient tricuspid regurgitation signal. Estimated right atrial pressure is 8 mmHg based on IVC assessment. LEFT ATRIUM The left atrial cavity is normal in size. RIGHT ATRIUM The right atrial cavity is normal in size. Inferior Vena Cava: The inferior vena cava appears normal measuring 1.5 cm. The vessel decreases less than 50 percent with inspiration. MITRAL VALVE The mitral valve leaflets are structurally normal. There is trace mitral valve regurgitation. TRICUSPID VALVE The tricuspid valve leaflets are structurally normal. There is trace tricuspid valve regurgitation. AORTIC VALVE There is no aortic valve regurgitation. Tricuspid aortic valve. There is mild thickening. PULMONIC VALVE The pulmonic valve cusps are structurally normal. There is no pulmonic valve regurgitation. AORTA The visualized aorta is normal in size. Measurements - Mid ascending aorta 3.3 cm. INTERATRIAL SEPTUM There is no evidence of intracardiac shunting as detected by Doppler. PERICARDIUM There is an epicardial fat pad. CONCLUSIONS: - Exam indication: Shortness of Breath - The left ventricle is mildly dilated. There is no left ventricular hypertrophy. Left ventricular systolic function is moderately decreased. EF = 34 5% (2D biplane) Definity contrast used for endocardial border detection. Left ventricular diastolic function was not evaluated due to E/A fusion. - The right ventricle is normal in size. Right ventricular systolic function is normal. Tricuspid annular displacement is 2.1 cm. - There are no significant valvular abnormalities. - The patient has not had a prior CC echocardiographic exam for comparison. * * * Final * * * CC [employer] [facility] Image : [id number] OP NOT Observed: 11/20/2024 10:55 AM Status: COMPLETED Source: [facility] HNO ID: [id number] Author: CYNTHIA GILLILAND MD Service: Interventional Cardiology Author Type: Physician Type: Brief Op Note Filed: 11/20/2024 11:06 Note Text: CARDIAC CATHETERIZATION REPORT PATIENT NAME: Baylee Cortes SERVICE DATE: 11/20/2024 SERVICE TIME: 10:55 AM Station Engineer Chief: Niraj Castillo MD Attending: Jorge Moore MD RECOMMENDATIONS: Continue DAPT for the course of 1 year Referral to cardiac rehab Follow-up with Dr. Castillo in 2 to 3 weeks Pre-Procedure Diagnosis: 49-year-old woman with insulin requiring diabetes and strong family history of premature coronary disease who was admitted to [facility] with chest pain and NSTEMI. Cardiac catheterization demonstrated severe disease in the proximal LAD and left circumflex. She was referred for percutaneous coronary intervention Post- Procedure Diagnosis: Significant proximal LAD lesion, dFFR 0.88, treated with Cutting Balloon angioplasty and IVUS assisted drug-eluting stent placement. Severe disease proximal nondominant left circumflex treated with balloon angioplasty and drug-eluting stent placement under ultrasound guidance. Procedure: Percutaneous coronary invention Access: Right Radial Artery Under Local anesthesia the Right Radial Artery was entered by Modified Seldinger's technique using a micro puncture needle. A 6F sheath was introduced into the Right Radial Artery . Patient was administered 10,000 units of heparin. An EBU 3.5 guiding catheter was seated into the left main coronary artery. An FFR wire was passed in the LAD. The lesion was significant with a dFFR of 0.88. Initial balloon inflations were done with a 3.0 x 20 mm Emerge balloon. IVUS images were obtained. Further predilatation was performed using a 3.5 x 15 mm Newnan balloon inflated to 14 thomas. A 3.0 x 38 mm Synergy stent was deployed in the lesion. The stent was postdilated using a 3.5 x 15 mm NC Emerge balloon inflated to 16 thomas. Further postdilatation was performed using a 3.75 x 8 mm NC Emerge balloon inflated to 16 thomas. A Scion Blue wire was passed in the left circumflex. Initial balloon inflations were done with a 3.0 x 20 mmEmerge balloon. IVUS images were obtained. A 3.5 x 16 mm Synergy stent was deployed from the ostium left circumflex to the proximal vessel. Stent was postdilated using 3.75 x 8 mm NC Emerge balloon followed by 4.0 x 8 mm NC Emerge balloon. Both inflated to 16 thomas. Final angiograms were obtained. The sheath was removed and hemostatsis was established using TR band closure device. There was no bleeding at the end of the procedure. The pt was returned to the recovery room in a stable condition. Medications Versed: 3 mg IV Fentanyl: 75 mcg IV Heparin: 10,000 units IV Ticagrelor: 180 mg p.o. FINDINGS: Coronary Angiography/PCI: Left Main: Large-caliber vessel no significant disease Left Anterior Descending: The proximal LAD had an eccentric calcified 70-80% stenosis confirmed with both fractional flow reserve measurement and intravascular ultrasound. The lesion was treated with balloon angioplasty, Cutting Balloon angioplasty and placement of a 3.0 x 38 mm Synergy stent. The stent was postdilated 3.5 mm distally and 3.7 mm proximally with a good angiographic result. Circumflex: Large-caliber nondominant vessel. The proximal vessel has an eccentric calcified 70-80% stenosis. The lesion was treated with balloon angioplasty and placement of a 3.5 x 16 mm Synergy stent which was postdilated to 4.0 mm proximally and 3.75 mm distally with a good angiographic and IVUS guided result. Complications: None SIGNATURE: Cynthia Gilliland MD DATE: November 20, 2024 TIME: 10:55 AM CARD CATH INTERVENT Observed: 11/20/2024 9:48 AM Status: F Source: [facility] Site Id: [facility] Lab #: Study Date: 11/20/2024 Start Time: End Time: Name Duty Cynthia Gilliland MD PROC 1 Ayala Barrera RT PROC SCRUB 1 Mindi Motta RN PROC CIRC 1 Grisel Davies RN PROC RECORD 1 + + PATIENT INFORMATION + + Name: BAYLEE CORTES [facility] : 1975 Age: 49 years Gender: Height: 67 in / 170 cm Weight: 236.21 lb / 107.14 kg BMI: 37.00 kg/m BSA: 2.17 m + + CLINICAL HISTORY/INDICATIONS + + Dyspnea. Appropriate Use Criteria (Diag): Non-STEMI elevation myocardial infarction with high risk score; AUC score = 9. Procedural Status: Urgent CAD Presentation: Non-STEMI Angina Classification (within 2 weeks): CCS IV No Heart Failure Clinical History: 49-year-old woman with insulin requiring diabetes and strong family history of premature coronary disease who was admitted to [facility] with chest pain and NSTEMI. Cardiac catheterization demonstrated severe disease in the proximal LAD and left circumflex. She was referred for percutaneous coronary intervention + + DIAGNOSTIC FINDINGS + + Coronary Anatomy: Right Dominant Injection Site(s): Left Main Coronary Artery LMT: The LMT is normal. LAD: The proximal LAD is narrowed 80 % - severe diffuse disease.The IFR is 0.88. LCX: The proximal circumflex is narrowed 80 % - focal disease. Additional Comment: Large-caliber nondominant vessel. The proximal vessel has an eccentric calcified 70-80% stenosis. RAMUS: Ramus Status: Not Applicable. RCA: RCA Status: Not Applicable. + + IMPRESSION/PLAN + + Impression:Proximal LAD and LCx disease Recommended Treatment: PCI and Medical Therapy. Plan: PCI + + PCI SUMMARY + + Procedures Performed: Left Anterior Descending: The proximal LAD had an eccentric calcified 70-80% stenosis confirmed with both fractional flow reserve measurement and intravascular ultrasound. The lesion was treated with balloon angioplasty, Cutting Balloon angioplasty and placement of a 3.0 x 38 mm Synergy stent. The stent was postdilated 3.5 mm distally and 3.7 mm proximally with a good angiographic result. Circumflex: Large-caliber nondominant vessel. The proximal vessel has an eccentric calcified 70-80% stenosis. The lesion was treated with balloon angioplasty and placement of a 3.5 x 16 mm Synergy stent which was postdilated to 4.0 mm proximally and 3.75 mm distally with a good angiographic and IVUS guided result. Procedural Details: Anticoagulation: Aspirin, Ticagrelor and Heparin Procedure Summary: Significant proximal LAD lesion, dFFR 0.88, treated with Cutting Balloon angioplasty and IVUS assisted drug-eluting stent placement. Severe disease proximal nondominant left circumflex treated with balloon angioplasty and drug-eluting stent placement under ultrasound guidance. Procedure Narrative: Lesion 1: LAD Proximal Guide 1: 6FR EBU 3.5. + + +--------+------+--------+ Type of Name of Device Diameter Length Pressure Treatment + + +--------+------+--------+ Pre-Dilation Emerge PTCA Dilatation Catheter 3.00 20 Monorail + + +--------+------+--------+ Pre-Dilation Newnan Cutting Balloon 3.50 15 14 + + +--------+------+--------+ Stent SYNERGY Stent RX 3.00 38 + + +--------+------+--------+ Post-Dilation NC Emerge RX 3.50 15 16 + + +--------+------+--------+ Post-Dilation NC Emerge RX 3.75 8 16 + + +--------+------+--------+ Lesion 2: LCX Proximal Guide 2: 6FR EBU 3.5. + + +--------+------+--------+ Type of Name of Device Diameter Length Pressure Treatment + + +--------+------+--------+ Pre-Dilation Emerge PTCA Dilatation Catheter 3.00 20 Monorail + + +--------+------+--------+ Stent SYNERGY Stent RX 3.50 16 + + +--------+------+--------+ Post-Dilation NC Emerge RX 3.75 8 22 + + +--------+------+--------+ Post-Dilation NC Emerge RX 4.00 8 + + +--------+------+--------+ +----+ PLAN +----+ Disposition: Return to Telemetry Bed + + HEMODYNAMICS - XPER + + + +------+------+-------+------+------+------+ Measurement Name Sys Cathleen End Cathleen Mean A Wave V Wave + +------+------+-------+------+------+------+ AO 150.00 92.00 117.00 + +------+------+-------+------+------+------+ AO 139.00 87.00 111.00 + +------+------+-------+------+------+------+ AO 152.00 101.00 124.00 + +------+------+-------+------+------+------+ AO 130.00 92.00 110.00 + +------+------+-------+------+------+------+ AO 138.00 96.00 114.00 + +------+------+-------+------+------+------+ AO 158.00 107.00 130.00 + +------+------+-------+------+------+------+ AO 136.00 105.00 120.00 + +------+------+-------+------+------+------+ AO 143.00 100.00 119.00 + +------+------+-------+------+------+------+ AO 161.00 107.00 131.00 + +------+------+-------+------+------+------+ AO 159.00 110.00 132.00 + +------+------+-------+------+------+------+ AO 149.00 109.00 127.00 + +------+------+-------+------+------+------+ Oximetry: + +-------+ +--+---+-----+ Time Site O2 Saturation O2 PO2 HB + +-------+ +--+---+-----+ 11/20/2024 9:35:16 AM SYS ART 15.40 + +-------+ +--+---+-----+ 11/20/2024 9:35:16 AM SYS TYRONE 15.40 + +-------+ +--+---+-----+ 11/20/2024 9:35:16 AM PUL ART 15.40 + +-------+ +--+---+-----+ 11/20/2024 9:35:16 AM PUL TYRONE 15.40 + +-------+ +--+---+-----+ + + ADVERSE OUTCOME(s)/COMPLICATION(s) + + None + + PROCEDURAL & TECHNICAL DETAILS + + Date Time Description 11/20/2024 12:00:00 AM STENT 11/20/2024 12:00:00 AM IVUS 11/20/2024 12:00:00 AM WAVE WIRE ADVERSE OUTCOME(s)/COMPLICATION(s)None Recommended Treatment: Percutaneous Interventions: Lesion Size ACC Complications LAD Proximal 3.75 mm C None LCX Proximal C None Lesion Pre Stenosis Post Stenosis Pre Grabiel Score Post Grabiel Score LAD Proximal 80.00 0 3 3 LCX Proximal 80.00 0 2 3 *MEDICAL HISTORY* CAD Presentation: Non-STEMI Angina Classification (within 2 weeks): CCS IV No Heart Failure Family History of CAD: Yes Congenital Heart Disease: No Coronary Artery Disease: Yes Dyslipidemia: Yes Hypertension: Yes Creatinine > 2: No Dialysis: Currently not on dialysis Left Ventricle EF: No Relevent EF within 6 Months. LVEF at Discharge: Procedure Details: Blood Loss: < 30ml Specimen: No Specimen Obtained Recent PCI Failure of Treated Vessel: Contrast: Radiation: Procedure performed under Fluoroscopic Guidance Total Dose 1178.25 mGy Dose Area Product 98.50 Gy*cm Total Exposure Time 1148.19 sec Baseline: HGB: Creatinine: Glucose: INR: Conscious Sedation Summary: Moderate sedation consisting of continuous ECG, pulse oxymetry and cardiopulmonary monitoring was performed by the Cardiology Nurse, overseen by the performing physician(s). Attending Physician Presence Attestation: Entire Procedure Electronically Submitted by: Cynthia Gilliland MD On: 11/24/2024 at 3:33:58 PM Final CC [employer] [facility] Image : [id number] See Link below for Image CONSULT Observed: 11/20/2024 9:15 AM Status: COMPLETED Source: [facility] HNO ID: [id number] Author: YULIANA YEUNG APRN.CNP Service: Cardiovascular Surgery Author Type: Nurse Practitioner Type: Consults Filed: 11/20/2024 09:59 Note Text: CONSULT - Interventional Cardiology - SERVICE DATE: November 20, 2024 SERVICE TIME: 9:16 AM Consulting Provider: Yuliana Yeung APRN.CNP PCP: No primary care provider on file. ATTENDING: Jorge Moore MD REASON FOR CONSULT: Chest Pain and NSTEMI Subjective CHIEF COMPLAINT: NSTEMI (non-ST elevated myocardial infarction) (HCC) [I21.4] HISTORY OF PRESENT ILLNESS: Ms. Cortes is a 49 year old female with a PMH significant for hypertension, hyperlipidemia, type 2 diabetes, gastroparesis who presented to [facility] 11/18/24 with c/o one day of midsternal chest pain 11/11 after eating breakfast, radiating retrosternal, described as indigestion. No other associated factors. Noted isolated episode of midsternal chest pain after 6-7 min on treadmill this weekend, resolving with rest. In [place], found to be NSTEMI presentation with troponin elevation 369>353>353. CXR without acute abnormality. Cardiac cath revealed significant disease to LAD and circumflex. Noreported issues with catheterization, right radial approach. Maintained on ASA 81 mg and Heparin gtt and transferred to [facility] for further evaluation and work up. ECHO ordered and pending. Has maintained NPO after midnight. NAEO Review of Systems Constitutional: Negative for chills, fever and malaise/fatigue. HENT: Negative for congestion, nosebleeds and sore throat. Eyes: Negative for blurred vision. Cardiovascular: Positive for chest pain. Negative for claudication, dyspnea on exertion, irregular heartbeat, leg swelling, near-syncope, orthopnea, palpitations, paroxysmal nocturnal dyspnea and syncope. Respiratory: Negative for cough, hemoptysis, shortness of breath and wheezing. Genitourinary: Negative for dysuria and hematuria. Neurological: Negative for dizziness, focal weakness, headaches, light-headedness, paresthesias and weakness. Currently denies chest pain, palpitations, shortness of breath, lightheadedness or dizziness, fatigue or edema. No recent illness, fevers, chills. Denies headaches, visions, changes. Denies abdominal pain, n/v/d. Voiding and moving bowels regularly. No peripheral paresthesias. Denies abnormal bleeding. PAST MEDICAL HISTORY Diagnosis Date Abnormal Pap smear of cervix JOSE? Back pain Cluster headaches Depression Diabetes (HCC) Diarrhea Difficulty sleeping Fatigue Gastroparesis Headache Headaches Hemorrhoids Kidney stones Muscle pain Type 2 diabetes (HCC) UTI (urinary tract infection) Vaginitis Wears glasses PAST SURGICAL HISTORY Procedure Laterality Date BACK SURGERY HX BIOPSY VULVA/PERINEUM [address] [facility] at [place] EGD W/O [facility] SPEC VARICIES INJ 2017 [facility] SPINE SURGERY HX 08/02/2007 TONSILLECTOMY AND ADENOIDECTOMY <AGE 14 TONSILLECTOMY PRIMARY/SECONDARY <AGE 14 Tonsillectomy UNSPECIFIED ORAL SURGERY PROCEDURE, BY REPORT 01/1996 [place] teeth extraction FAMILY HISTORY Problem Relation Age of Onset Colon Cancer Paternal Uncle Colon Cancer Paternal Uncle Heart Father Osteoporosis Mother other (blood clots [Other]) Father Diabetes Mother Diabetes Father Notes father had MA at 45 with CABG and multiple subsequent catheterizations and PCIs Social History Tobacco Use Smoking status: Never Smokeless tobacco: Never Vaping Use Vaping status: Some Days Substances: Nicotine Substance Use Topics Alcohol use: Not Currently Comment: Rare Drug use: Never Comment: Rarely; type unspecified Medications Prior to Admission Medications Prescriptions Last Dose Informant Patient Reported? Taking? BUPROPION HCL (WELLBUTRIN ORAL) Yes No Sig: Take by mouth. FREESTYLE FREDO 3 SENSOR [place] Yes No Sig: CHANGE SENSOR EVERY 14 DAYS GLYBURIDE ORAL Yes No Sig: Take 2 mg by mouth twice daily. INVOKANA 100 mg tab 11/19/2024 Morning Yes Yes Sig: Take 1 tablet by mouth every afternoon. SIMVASTATIN ORAL Yes No Sig: Take by mouth. TRULICITY 1.5 mg/0.5 mL pen injector Yes No Sig: INJECT 1.5 MG UNDER THE SKIN 1 (ONE) TIME PER WEEK. Patient not taking: Reported on 06/23/2024 copper (PARAGARD T 380A) 380 square mm IUD Yes No Sig: by INTRAUTERINE route. fluconazole (DIFLUCAN) 150 mg tablet Yes No glimepiride (AMARYL) 4 mg tablet Yes No metFORMIN (GLUCOPHAGE) 1,000 mg tablet 11/19/2024 Morning Yes Yes Sig: Take 1,000 mg by mouth twice daily with meals. metFORMIN (GLUCOPHAGE) 1,000 mg tablet Yes No Si,000 mg. naproxen sodium (ALEVE) 220 mg tablet Yes No Si mg. omeprazole (PRILOSEC) 40 mg capsule 11/19/2024 Morning Yes Yes Sig: Take 1 capsule by mouth every afternoon. pravastatin (PRAVACHOL) 10 mg tablet 11/18/2024 Bedtime Yes Yes Sig: Take 1 tablet by mouth every afternoon. Facility-Administered Medications: None Current Facility-Administered Medications Medication Dose Route Frequency heparin iv infusion 25,000 units in NaCl 0.45% 250 mL LOW DOSE/ACS NOMOGRAM 0-3,000 Units/hr INTRAVENOUS CONTINUOUS And heparin RATE CHANGE bolus 1,000-4,000 Units for subtherapeutic PTTAC results 1,000-4,000 Units INTRAVENOUS PRN metoprolol tartrate (short acting) 25 mg tab(s) (LOPRESSOR) 25 mg ORAL q 12 H aspirin 81 mg chewable tab(s) 81 mg ORAL DAILY atorvastatin 40 mg tab(s) (LIPITOR) 40 mg ORAL AT BEDTIME insulin lispro injection (rapid acting) (ADMElog) SUBCUTANEOUS q 6 H insulin lispro injection (rapid acting) (ADMElog) SUBCUTANEOUS AT BEDTIME dextrose 15 gram/32 mL 15 g (TRUEPLUS) 15 g ORAL PRN Or glucagon 1 mg injection 1 mg INTRAMUSCULAR PRN Or dextrose 10% iv bolus 12.5 g INTRAVENOUS PRN NaCl 0.9% iv flush bag 20 mL INTRAVENOUS PRN acetaminophen 650 mg tab(s) (TYLENOL) 650 mg ORAL q 4 H PRN aluminum-magnesium hydroxide-simethicone 200-200-20 mg/5 mL 30 mL 30 mL ORAL q 6 H PRN oxyCODONE IR 5 mg tab(s) (ROXICODONE) 5 mg ORAL q 4 H PRN ondansetron (PF) 4 mg injection (ZOFRAN) 4 mg INTRAVENOUS q 6 H PRN sodium chloride 0.9 % (flush) 2-10 mL (BD POSIFLUSH) 2-10 mL INTRAVENOUS DIRECTED PRN And perflutren lipid microspheres 1.1 mg/mL 1.3 mL injection (DEFINITY) 1.3 mL INTRAVENOUS DIRECTED PRN nitroglycerin sublingual 0.4 mg tab(s) (NITROQUICK) 0.4 mg SUBLINGUAL PRN ALLERGIES Allergen Reactions Amoxicillin-Pot Cla* Hives Augmentin allergy per admission orders (= itching, hives LDRP/FLORIDALMA) 0816 11/26/2006JO Augmentin [Amoxicil* Rash Objective Physical Examination Patient Vitals for the past 48 hrs: BP Temp Temp src Pulse Resp SpO2 Height Weight 11/20/24 0756 -- -- -- -- 16 -- -- -- 11/20/24 0724 127/92 36.9 ?C (98.4 ?F) Oral 83 19 97 % -- -- 11/20/24 0447 144/95 36.4 ?C (97.5 ?F) -- 92 -- 95 % -- -- 11/20/24 0446 -- -- -- -- -- -- -- 107.5 kg (236 lb 15.9 oz) 11/19/24 2246 -- -- -- -- -- -- 170.2 cm (5' 7) 106.4 kg (234 lb 9.1 oz) 11/19/24 2245 153/99 36.8 ?C (98.3 ?F) Oral 103 18 96 % -- -- TELEMETRY SR 80s Body mass index is 37.12 kg/m?. No data recorded Physical Exam Vitals reviewed. Constitutional: General: She is not in acute distress. Appearance: Normal appearance. HENT: Head: Normocephalic and atraumatic. Nose: Nose normal. Eyes: General: No scleral icterus. Extraocular Movements: Extraocular movements intact. Conjunctiva/sclera: Conjunctivae normal. Cardiovascular: Rate and Rhythm: Normal rate and regular rhythm. Pulses: Normal pulses. Radial pulses are 2+ on the right side and 2+ on the left side. Dorsalis pedis pulses are 2+ on the right side and 2+ on the left side. Heart sounds: Normal heart sounds. Pulmonary: Effort: Pulmonary effort is normal. Breath sounds: Normal breath sounds. Abdominal: General: Bowel sounds are normal. Palpations: Abdomen is soft. Musculoskeletal: Right lower leg: No edema. Left lower leg: No edema. Skin: General: Skin is warm and dry. Neurological: General: No focal deficit present. Mental Status: She is alert and oriented to person, place, and time. Psychiatric: Mood and Affect: Mood normal. CMP: Lab Results Component Value Date Calcium, Total 9.2 11/20/2024 Glucose 168 (H) 11/20/2024 BUN 9 11/20/2024 Creatinine 0.66 11/20/2024 Sodium 135 (L) 11/20/2024 Potassium 4.1 11/20/2024 Chloride 99 11/20/2024 CO2 19 (L) 11/20/2024 Anion Gap 17 (H) 11/20/2024 Estimated Glomerular Filtration Rate 109 11/20/2024 CBC: Lab Results Component Value Date WBC 12.86 (H) 11/20/2024 RBC 5.01 11/20/2024 Hemoglobin 15.4 11/20/2024 Hematocrit 45.3 11/20/2024 MCV 90.4 11/20/2024 MCH 30.7 11/20/2024 MCHC 34.0 11/20/2024 RDW-CV 12.1 11/20/2024 Platelet Count 345 11/20/2024 MPV 10.5 11/20/2024 Absolute nRBC <0.01 11/20/2024 HGB A1C: INR PT: Lab Results Component Value Date PT Sec 10.9 11/19/2024 INR 1.0 11/19/2024 TSH: Last Lab Drawn: No results found for: TROPI] Cholesterol, Total (mg/dL) Date Value 11/20/2024 177 HDL Cholesterol (mg/dL) Date Value 11/20/2024 54 LDL Cholesterol, Calculated (mg/dL) Date Value 11/20/2024 85 Triglyceride (mg/dL) Date Value 11/20/2024 232 No results found for: HBA1C- in process No results found for: TSH, FREET4 [facility]ostics Electrocardiogram (ECG) Tele SR 80s, unable to view EKG at this time Echocardiogram Ordered and pending Cardiac Catheretization See cardiac images Unable to locate hard copy findings in chart at this time Other Radiographic Findings CXR 11/19/24 without acute abnormalities Impression/Recommendations Principal Problem: NSTEMI (non-ST elevated myocardial infarction) (HCC) (POA: Yes) - NSTEMI presentation 11/18/24 with troponin elevation 369>353>353. - CXR without acute abnormality. - Cardiac cath 11/19/24 images uploaded. Significant disease to LAD and circumflex. - Maintains on ASA 81 mg and Heparin gtt - anticipate left hearty catheterization with Dr. Gilliland, FFR LAD, possible PCI Left circumflex today - maintains NPO after midnight. HTN (hypertension) (POA: Yes) - 127/90 - goal <130/90 - DASH, low sodium diet encouraged - continue metoprolol 25 mg oral BID ( of note was not on HTN meds prior to admission. Was on STEPHAN-I in past with upper body myalgias) HLD (hyperlipidemia) (POA: Yes) - continues on high intensity statin Lipitor 40 mg daily - LDL 85 on 11/20/24 DM2 (diabetes mellitus, type 2) (HCC) (POA: Yes) - currently on SSI Lispro - HgA1C pending Orders reviewed and I agree with the cardiac orders. Additional orders include - NA. Transporation present to take pt down to cardiac cath lab manager. Discussed with Dr. Gilliland. Unsure if loaded with Plavix prior to admission. Does not appear so on med rec review. SIGNATURE: Yuliana Yeung APRN.CNP PATIENT NAME: Baylee Cortes DATE: 11/20/2024 TIME: 9:16 AM PAGER/CONTACT #: [phone] ECG COMPLETE Observed: 11/20/2024 5:34 AM Status: F Source: [facility] Ventricular Rate : 94 BPM Atrial Rate : 94 BPM P-R Interval : 152 ms QRS Duration : 82 ms Q-T Interval : 396 ms QTC Calculation(Bazett) : 495 ms Calculated P [place] : 19 degrees Calculated R [place] : -13 degrees Calculated T [place] : 90 degrees NORMAL SINUS RHYTHM SEPTAL INFARCT , AGE UNDETERMINED T WAVE ABNORMALITY, CONSIDER ANTEROLATERAL ISCHEMIA ABNORMAL ECG NO PREVIOUS ECGS AVAILABLE Confirmed by MD SILVINO, CHRISTIAN ([id number]) on 11/23/2024 6:23:08 PM NAME : BAYLEE CORTES PID : [id number] : 1975 Gender : Female Race : ORD : [id number] Procedure Date : Nov 20 2024 05:34:35 Edit Date : Nov 23 2024 18:23:12 Diagnosis: NORMAL SINUS RHYTHM SEPTAL INFARCT , AGE UNDETERMINED T WAVE ABNORMALITY, CONSIDER ANTEROLATERAL ISCHEMIA ABNORMAL ECG NO PREVIOUS ECGS AVAILABLE Confirmed by MD DUBOIS VINAYAK ([id number]) on 11/23/2024 6:23:08 PM Test Reason : Chest Pain Location : 200 : [facility] 4220 Overread By : MD DUBOIS VINAYAK Edited By : MD DUBOIS VINAYAK Referred By : NIRAJ CASTILLO Acquired by : JUAN MANUEL OCONNOR HCG PREG UR QL Collected: 4:51 AM Status: F Source: [facility] Order Comment: Specimen Type : URINE SPECIMEN Ordering Facility: [facility] Address: [address] [place] [address] TYPE CODE TESTS RESULT OUT OF RANGE REFERENCE UNITS LAB 2106-3(LOINC) HCG Preg Ur Ql Negative Negative Result Comment: This test is intended to aid in the early detection of . Very dilute urine samples, as indicated by a low specific gravity, may not contain dental sales representative levels of hCG. This test detects intact hCG only. This test does not reliably detect hCG degradation products, including free-beta subunit and beta- core fragment. Therefore, this test may show reduced reactivity in urine after 8 weeks gestation. A number of conditions other than , including trophoblastic disease and certain non-trophoblastic neoplasms cause elevated levels of hCG. As with any assay employing mouse antibodies, the possibility exists for interference by human anti-mouse antibodies (HAMA) in the specimen. The test provides a presumptive diagnosis for . Performed By: #### 2106-3 ## ## [facility] CLIA [id number] 1 [place] [address] [place] BAS METAB 2000 PNL SERPL Collected: 4:48 AM Status: F Source: [facility] Order Comment: Specimen Type : BLOOD SPECIMEN Ordering Facility: [facility] Address: [address] [place] [address] TYPE CODE TESTS RESULT OUT OF RANGE REFERENCE UNITS LAB 2345-7(LOINC) Glucose SerPl-mCnc 168 High 74-99 mg/dL Result Comment: The [place] Diabetes Association (ADA) provides guidance for cutoff values for fasting glucose and random glucose. The ADA defines fasting as no caloric intake for at least 8 hours. Fasting plasma glucose results between 100 to 125 mg/dL indicate increased risk for diabetes (prediabetes). Fasting plasma glucose results greater than or equal to 126 mg/dL meet the criteria for diagnosis of diabetes. In the absence of unequivocal hyperglycemia, results should be confirmed by repeat testing. In a patient with classic symptoms of hyperglycemia or hyperglycemic crisis, random plasma glucose results greater than or equal to 200 mg/dL meet the criteria for diagnosis of diabetes. Reference: Standards of Medical Care in Diabetes 2016, [place] Diabetes Association. Diabetes Care. 2016.39(Suppl 1). LAB 3094-0(LOINC) BUN SerPl-mCnc 9 7-21 mg/ dL LAB 2160-0(LOINC) Creat SerPl-mCnc 0.66 0.58-0.96 mg/dL LAB 2951-2(LOINC) Sodium SerPl-sCnc 135 Low 136-144 mmol/L LAB 2823-3(LOINC) Potassium SerPl-sCnc 4.1 3.7-5.1 mmol/L LAB 2075-0(LOINC) Chloride SerPl-sCnc 99 98-107 mmol/L LAB 2028-9(LOINC) CO2 SerPl-sCnc 19 Low 22-30 mmo l/L LAB 1863-0(LOINC) Anion Gap4 SerPl-sCnc 17 High 8-15 mmol/L LAB 10956-8(LOINC) Calcium SerPl-mCnc 9.2 8.5-10.2 mg/dL LAB 19644-2(LOINC) Creatinine + eGFR Pnl SerPlBld 109 >=60 mL/min/1. 73m??? Result Comment: Estimated Gl omerular Filtration Rate (eGFR) is calculated using the 2020 CKD-EPI creatinine equation. This equation utilizes serum creatinine, sex, and age as parameters. The creatinine assay has traceable calibration to isotope dilution-mass spectrometry. Refer to KDIGO guidelines for clinical interpretation. In patients with unstable renal function, e.g. those with acute kidney injury, the eGFR may not accurately reflect actual GFR. Performed By: #### 18552-3, 18165-9 #### [facility] CLIA [id number] [address] [place] [id number] [place] LIPID 1996 PNL SERPL Collected: 025 4:48 AM Status: F Source: [facility] Order Comment: Specimen Type : BLOOD SPECIMEN Ordering Facility: [facility] Address: [address] [place] [address] TYPE CODE TESTS RESULT OUT OF RANGE REFERENCE UNITS LAB 2093-3(LOINC) Cholest SerPl-mCnc 177 <200 mg/dL Result Comment: <200 mg/dL, Desirable 200-239 mg/dL, Borderline high >239 mg/dL, High LAB 2571-8(LOINC) Trigl SerPl-mCnc 232 High <150 mg/dL Result Comment: <150 mg/dL, Normal 150-199 mg/dL, Borderline high 200-499 mg/dL, High >499 mg/dL, Very high LAB 2085-9(LOINC) HDLc SerPl-mCnc 54 >39 mg/dL Result Comment: 40-59 mg/dL, Acceptable >59 mg/dL, High: Negative risk factor for coronary heart disease <40 mg/dL, Low: Positive risk factor for coronary heart disease LAB 67780-9(LOINC) LDLc SerPl Calc-mCnc 85 <100 mg/dL Result Comment: <100 mg/dL, Optimal 100-129 mg/dL, Near optimal/above optimal 130-159 mg/dL, Borderline high 160-189 mg/dL, High >189 mg/dL, Very high Secondary prevention optimal LDL Cholesterol levels are recommended to be <70 mg/dL LDL cholesterol is calculated using the Schuster-NIH equation. LAB 76716-6(LOINC) NonHDLc SerPl-mCnc 123 <130 mg/dL Result Comment: <130 mg/dL, Optimal 130-159 mg/dL, Near optimal/above optimal 160-189 mg/dL, Borderline high 190-219 mg/dL, High >219 mg/dL, Very high Secondary prevention optimal non HDL Cholesterol levels are recommended to be <100 mg/dL LAB 77134-5(LOINC) VLDLc SerPl Calc-mCnc 36 High <30 mg/dL LAB 9830-1(LOINC) Cholest/HDLc SerPl 3.28 <5.10 LAB 11718-2(LOINC) LDLc/HDLc SerPl 1.57 <2.54 Result Comment: Reference: 1. National Cholesterol Education Program ATP III Guideline At-A-Glance Quick Desk Reference: National Heart, Lung, and Blood [place]. National Institutes of Health. 2001: NIH Publication No. 01-3305. 2. An International Atherosclerosis Society position paper: global recommendations for the management of dyslipidemia: executive summary, Atherosclerosis. 2014: 232(2):410-413. LAB FT FASTING TIME 5 hrs Performed By: #### 57698-8, 69683-9 #### [facility] CLIA [id number] [address] HIGH SENSITIVITY TROPONIN T Collected: 11/20/2024 4:4 8 AM Status: F Source: [facility] Order Comment: Specimen Type : BLOOD SPECIMEN Ordering Facility: [facility] Address: [address] [place] [address] TYPE CODE TESTS RESULT OUT OF RANGE REFERENCE UNITS LAB 45950-0(LOINC) Troponin T SerPl HS-mCnc 369 High <12 ng/L Performed By: #### HSTNT ### # [facility] CLIA [id number] [address] APTT PPP Collected: 4:48 AM Status: F Source: [facility] Order Comment: Specimen Type : BLOOD SPECIMEN Ordering Facility: [facility] Address: [address] [place] [address] TYPE CODE TESTS RESULT OUT OF RANGE REFERENCE UNITS LAB 17740-1(LOINC) aPTT PPP 36.5 High 23.0-32.4 sec Performed By: #### 91687-1 # ### [facility] CLIA [id number] [address] CBC PNL BLD AUTO Collected: 11/20/2024 4:48 AM Statu s: F Source: [facility] Order Comment: Specimen Type : BLOOD SPECIMEN Ordering Facility: [facility] Address: [address] [place] [address] TYPE CODE TESTS RESULT OUT OF RANGE REFERENCE UNITS LAB 6690-2(LOINC) WBC # Bld Auto 12.86 High 3.70-11.00 k/uL LAB 789-8(LOINC) RBC # Bld Auto 5.01 3.90-5.20 m/ uL LAB 718-7([facility]) Hgb Bld-mCnc 15.4 11.5-15.5 g/dL LAB 4544-3([facility]) Hct VFr Bld Auto 45.3 36.0-46.0 % LAB 787-2(INC) MCV RBC Auto 90.4 80.0-100.0 fL LAB 785-6(INC) MCH RBC Qn Auto 30.7 26.0-34.0 pg LAB 786-4([facility]) MCHC RBC Auto-mCnc 34.0 30.5-36.0 g/dL LAB 97041-5([facility]) RDW RBC-Rto 12.1 11.5-15.0 % LAB 777-3([facility]) Platelet # Bld Auto 345 150-400 k/uL LAB 74037-1([facility]) PMV Bld Auto 10.5 9.0-12.7 fL LAB 771-6([facility]) nRBC # Bld Auto <0.01 <0.01 k/uL Performed By: #### 10551-0 # ### [facility] CLIA [id number] [address] [place] [address] [place] #### 11116-3 #### [facility] CLIA [id number] [address] [place] DEPRECATED HGB A1C BLD Collected: 11/20 4:48 AM Status: F Source: [facility] Order Comment: Specimen Type : BLOOD SPECIMEN Ordering Facility: [facility] Address: [address] [place] [address] TYPE CODE TESTS RESULT OUT OF RANGE REFERENCE UNITS LAB 4548-4([facility]) HbA1c MFr Bld 7.5 High 4.3-5.6 % Result Comment: [place] Cathleen betes Association guidelines indicate that patients with HgbA1c in the range 5.7-6.4% are at increased risk for development of diabetes, and intervention by lifestyle modification may be beneficial. HgbA1c greater or equal to 6.5% is considered diagnostic of diabetes. LAB 34240-0(LOINC) Est. average glucose Bld gHb Est-mCnc 169 mg/dL Result Comment: eAG: (Estima rojelio average glucose) is a calculated value from HgbA1c and is dental sales representative of the average blood glucose level in the last 2-3 month period. Performed By: #### 26215-2 # ### [facility] CLIA [id number] [address] [facility] [facility] [address] #### 00472-2 #### [facility] CLIA [id number] [address] HISTORY PHYSICAL Observed: 11/20/2024 1:22 AM Status: COMPLETED Source: [facility] HNO ID: [id number] Author: ELIZABETH IZAGUIRRE MD Service: Hospital Medicine Author Type: Physician Type: H&P Filed: 11/20/2024 02:43 Note Text: DEPARTMENT OF HOSPITAL MEDICINE HISTORY AND PHYSICAL EXAM SERVICE DATE: 11/20/2024 SERVICE TIME: 1:22 AM Primary Care Physician: No primary care provider on file. NIGHT AND WEEKEND COVERAGE: From 7am - 7pm, please call Sound After 7pm, please call cross cover pager #[phone] Subjective CHIEF COMPLAINT: chest pain HPI: This is a 49 year old female who presents with acute chest pain and shortness of breath right after running on the treadmill. Describes cp as substernal, nonradiating, 8/10 at the worst, heavy and sometimes burning. Her father had MA and required CABG at 45 yo. BP 150s/90s, HR 100s, RR 18, afebrile, 96% spo2 on RA. Wbc 12.7, hgb 15, trops: 361-353-353, CXR w/o acute abnormality. PAST MEDICAL HISTORY Diagnosis Date Abnormal Pap smear of cervix JOSE? Back pain Cluster headaches Depression Diabetes (HCC) Diarrhea Difficulty sleeping Fatigue Gastroparesis Headache Headaches Hemorrhoids Kidney stones Muscle pain Type 2 diabetes (HCC) UTI (urinary tract infection) Vaginitis Wears glasses PAST SURGICAL HISTORY Procedure Laterality Date BACK SURGERY HX BIOPSY VULVA/PERINEUM [address] Warren at [place] EGD W/O [facility] SPEC VARICIES INJ 2017 [facility] SPINE SURGERY HX 08/02/2007 TONSILLECTOMY AND ADENOIDECTOMY <AGE 14 TONSILLECTOMY PRIMARY/SECONDARY <AGE 14 Tonsillectomy UNSPECIFIED ORAL SURGERY PROCEDURE, BY REPORT 01/1996 [place] teeth extraction FAMILY HISTORY Problem Relation Age of Onset Colon Cancer Paternal Uncle Colon Cancer Paternal Uncle Heart Father Osteoporosis Mother other (blood clots [Other]) Father Diabetes Mother Diabetes Father Social History Tobacco Use Smoking status: Never Smokeless tobacco: Never Vaping Use Vaping status: Some Days Substances: Nicotine Substance Use Topics Alcohol use: Not Currently Comment: Rare Drug use: Never Comment: Rarely; type unspecified MEDICATIONS: Meds Reviewed FREESTCleanify FREDO 3 SENSOR h[place], CHANGE SENSOR EVERY 14 DAYS, Disp: , Rfl: INVOKANA 100 mg tab, Take 1 tablet by mouth every afternoon., Disp: , Rfl: , 11/19/2024 Morning TRULICITY 1.5 mg/0.5 mL pen injector, INJECT 1.5 MG UNDER THE SKIN 1 (ONE) TIME PER WEEK. (Patient not taking: Reported on 06/23/2024), Disp: , Rfl: metFORMIN (GLUCOPHAGE) 1,000 mg tablet, 1,000 mg., Disp: , Rfl: naproxen sodium (ALEVE) 220 mg tablet, 440 mg., Disp: , Rfl: omeprazole (PRILOSEC) 40 mg capsule, Take 1 capsule by mouth every afternoon., Disp: , Rfl: , 11/19/2024 Morning pravastatin (PRAVACHOL) 10 mg tablet, Take 1 tablet by mouth every afternoon., Disp: , Rfl: , 11/18/2024 Bedtime fluconazole (DIFLUCAN) 150 mg tablet, , Disp: , Rfl: glimepiride (AMARYL) 4 mg tablet, , Disp: , Rfl: SIMVASTATIN ORAL, Take by mouth., Disp: , Rfl: BUPROPION HCL (WELLBUTRIN ORAL), Take by mouth., Disp: , Rfl: metFORMIN (GLUCOPHAGE) 1,000 mg tablet, Take 1,000 mg by mouth twice daily with meals., Disp: , Rfl: , 11/19/2024 Morning GLYBURIDE ORAL, Take 2 mg by mouth twice daily., Disp: , Rfl: copper (PARAGARD T 380A) 380 square mm IUD, by INTRAUTERINE route., Disp: , Rfl: ALLERGIES Allergen Reactions Amoxicillin-Pot Cla* Hives Augmentin allergy per admission orders (= itching, hives LDRP/FLORIDALMA) 0816 11/26/2006JO Augmentin [Amoxicil* Rash REVIEW OF SYSTEM: GENERAL: No weight loss, malaise or fevers HEENT: Negative for frequent or significant headaches, No changes in hearing or vision, no nose bleeds or other nasal problems NECK: Negative for lumps, goiter, pain and significant neck swelling RESPIRATORY: Negative for cough, hemoptysis, wheezing, or shortness of breath CARDIOVASCULAR: Positive for chest pain GI: No nausea, vomiting, or diarrhea : No history of dysuria, frequency or incontinence MUSCULOSKELETAL: Negative for joint pain or swelling, back pain or muscle pain SKIN: Negative for lesions, rash, and itching PSYCH: Negative for sleep disturbance, depression or anxiety NEURO: No headaches, new speech impediment or new one sided weakness or numbness Objective PHYSICAL EXAM: BP 153/99 Pulse 103 Temp (Src) 98.3 (Oral) Resp 18 Ht 5' 7 (1.70m) Wt 234 lb 9.1 oz (106.4kg) SpO2 96% LMP 01/10/2016 BMI 36.73 kg/(m2). Physical Exam Performed: GENERAL: Alert, oriented x 3, no distress, cooperative SKIN: Skin color, texture, turgor normal. No rashes or lesions. HEAD/SINUSES: No significant findings EYES/EARS/NOSE: PERRLA, EOMI. External ears normal, canals clear. Nares normal, septum midline. OROPHARYNX: Lips, mucosa, and tongue normal. Teeth and gums normal. Oropharynx normal. NECK: No jugulovenous distention, No carotid bruits, Carotid pulse normal contour, Supple LUNGS: Lungs clear to auscultation, Good diaphragmatic excursion CARDIAC: Normal S1 and S2; no rubs, murmurs, or gallops ABDOMEN: Abdomen soft, non-tender, BS normal, No masses or organomegaly EXTREMITIES: Extremities normal, no deformities, edema, clubbing or skin discoloration. Good capillary refill., No ulcers NEURO: Gait normal. Reflexes normal and symmetric. Sensation grossly intact, Cranial nerves II-XII intact The remainder of the physical exam is noncontributory. Lines, Drains, and Airways Line Duration Peripheral 11/19/24 2343 External Facility Left Antecubital <1 day Peripheral 11/19/24 2343 Left Wrist 20 Gauge <1 day Reviewed lines and needs to be continued: REASONS: Intravenous fluids, electrolyte replacement DATA: Diagnostic tests reviewed for today's visit: Most recent labs and imaging results. Most recent EKG Assessment/Plan #Chest pain w/ elevated troponins concerning for NSTEMI / HTN / HLD -currently cp free, trops w/ flat delta, positive for early MA family hx, follow telemetry, trend troponins, check echo, asa/atorvastatin, continue heparin gtt, po lopressor, cardiology cs for recs, patient advised #DM2 -SSI #Obesity Full code per patient Medication and Non-Pharmacologic VTE Prophylaxis/Anticoagulants Anticoagulant AND Antiplatelet Medications (From admission, onward) Start Dose Route Frequency Last Action Ordered Stop 11/20/24 0900 aspirin 81 mg chewable tab(s) 81 mg PO DAILY Ordered 11/19/24 2351 -- 11/19/24 2300 heparin iv infusion 25,000 units in NaCl 0.45% 250 mL LOW DOSE/ACS NOMOGRAM (Heparin Infusion + Bolus for Subtherapeutic PTTAC) 0-30 mL/hr Placed in And Linked Group 0-3,000 Units/hr IV CONTINUOUS New Bag/Syringe/Bottle, 11/19 2334 11/19/24 2247 -- VTE Prophylaxis: VTE prophylaxis appropriate Disposition: Home Plan of care discussed with: Provider, RN, Patient SIGNATURE: Elizabeth Izaguirre MD PATIENT NAME: Baylee Cortes DATE: November 20, 2024 TIME: 1:22 AM etx [id number] HIGH SENSITIVITY TROPONIN T Collected: 11/20/2024 12: 31 AM Status: F Source: [facility] Order Comment: Specimen Type : BLOOD SPECIMEN Ordering Facility: [facility] Address: [address] [place] [address] TYPE CODE TESTS RESULT OUT OF RANGE REFERENCE UNITS LAB 01498-5(LOINC) Troponin T SerPl HS-mCnc 353 High <12 ng/L Performed By: #### HSTNT ### # [facility] CLIA [id number] [address] [place] HIGH SENSITIVITY TROPONIN T Collected: 11/19/2024 11: 06 PM Status: F Source: [facility] Order Comment: Specimen Type : BLOOD SPECIMEN Ordering Facility: [facility] Address: [address] [place] [address] TYPE CODE TESTS RESULT OUT OF RANGE REFERENCE UNITS LAB 65675-2([facility]) Troponin T SerPl HS-mCnc 361 High <12 ng/L Performed By: #### HSTNT ### # [facility] CLIA [id number] [address] CBC PNL BLD AUTO Collected: 11/19/2024 11:06 PM Stat us: F Source: [facility] Order Comment: Specimen Type : BLOOD SPECIMEN Ordering Facility: [facility] Address: [address] [place] [address] TYPE CODE TESTS RESULT OUT OF RANGE REFERENCE UNITS LAB 6690-2([facility]) WBC # Bld Auto 12.72 High 3.70-11.00 k/uL LAB 789-8(INC) RBC # Bld Auto 5.15 3.90-5.20 m/ uL LAB 718-7(INC) Hgb Bld-mCnc 15.7 High 11.5-15.5 g/dL LAB 4544-3(INC) Hct VFr Bld Auto 45.7 36.0-46.0 % LAB 787-2(INC) MCV RBC Auto 88.7 80.0-100.0 fL LAB 785-6(INC) MCH RBC Qn Auto 30.5 26.0-34.0 pg LAB 786-4([facility]) MCHC RBC Auto-mCnc 34.4 30.5-36.0 g/dL LAB 62895-5([facility]) RDW RBC-Rto 12.3 11.5-15.0 % LAB 777-3([facility]) Platelet # Bld Auto 320 150-400 k/uL LAB 19348-6([facility]) PMV Bld Auto 9.8 9.0-12.7 fL LAB 771-6([facility]) nRBC # Bld Auto <0.01 <0.01 k/uL Performed By: #### 77971-4 # ### [facility] CLIA [id number] [address] [place] [address] [place] #### 55047-1 #### [facility] CLIA [id number] [address] DEPRECATED HGB A1C BLD Collected: 11/19 11:06 PM Status: F Source: [facility] Order Comment: Specimen Type : BLOOD SPECIMEN Ordering Facility: [facility] Address: [address] [place] [address] TYPE CODE TESTS RESULT OUT OF RANGE REFERENCE UNITS LAB 4548-4(LOINC) HbA1c MFr Bld 7.5 High 4.3-5.6 % Result Comment: [place] Cathleen betes Association guidelines indicate that patients with HgbA1c in the range 5.7-6.4% are at increased risk for development of diabetes, and intervention by lifestyle modification may be beneficial. HgbA1c greater or equal to 6.5% is considered diagnostic of diabetes. LAB 80204-1(LOINC) Est. average glucose Bld gHb Est-mCnc 169 mg/dL Result Comment: eAG: (Estima rojelio average glucose) is a calculated value from HgbA1c and is dental sales representative of the average blood glucose level in the last 2-3 month period. Performed By: #### 75706-6 # ### [facility] CLIA [id number] [address] [place] [address] [place] #### 31583-3 #### [facility] CLIA [id number] [address] [place] PT PNL PPP Collected: 11:06 PM Status: F Source: [facility] Order Comment: Specimen Type : BLOOD SPECIMEN Ordering Facility: [facility] Address: [address] [place] [address] TYPE CODE TESTS RESULT OUT OF RANGE REFERENCE UNITS LAB 5902-2(LOINC) Prothrombin time 10.9 9.7-13.0 sec LAB 6301-6(LOINC) INR PPP 1.0 0.9-1.3 Result Comment: Vitamin K An tagonist (VKA) Therapeutic Range: INR 2 to 3 (Target INR of 2.5) Note: For patients treated with VKA drugs, such as warfarin, the [employer] 2012 Guideline recommends a therapeutic INR range of 2 to 3 (target INR of 2.5). This recommendation includes high-risk patients with antiphospholipid syndrome with previous arterial or venous thromboembolism, current-generation mechanical or bioprosthetic aortic heart valve replacement. Note: Patients with mechanical aortic valve replacement and additional risk factors for thromboembolic events (atrial fibrillation, previous thromboembolism, LV dysfunction, hypercoagulable conditions) or an older generation mechanical AVR (i.e., ball in-Cage) or any mechanical MVR should have a INR therapeutic range of 2.5 to 3.5 (target INR of 3). Thierno GH, et al. Chest 2012, 141:7S-47S Tory RA, et al. [facility] 2017, 70: 252-289 Performed By: #### 09405-0, 43783-2 #### [facility] CLIA [id number] [address] [facility] APTT PPP Collected: 5 11:06 PM Status: F Source: [facility] Order Comment: Specimen Type : BLOOD SPECIMEN Ordering Facility: [facility] Address: [address] [place] [address] TYPE CODE TESTS RESULT OUT OF RANGE REFERENCE UNITS LAB 36973-5(LOINC) aPTT PPP 29.1 23.0-32.4 sec Performed By: #### 24687-5, 96712-9 #### [facility] CLIA [id number] [address] [facility] 36 Observed: 11/17/2024 8:26 AM Status: COMP LETED Source: [facility] [employer] [facility] Rx pended 02/24/25 37 Observed: 10/30/2024 8:00 AM Status: COMPLETED [facility] Alternative: [employer] or John wiley PROGRESS NOTE Observed: 10/30/2024 8:00 AM Status: COMPLETED Source: [facility] MEDICAL [facility] [address] [facility] [address] Dept: [phone] Dept Loc: [phone] Visit type: Established patient Reason for Visit: Follow-up and Diabetes Mellitus Assessment and Plan 1. Type 2 diabetes mellitus with hyperglycemia, without long-term current use of insulin ([facility]) 2. Class 2 severe obesity due to excess calories with serious comorbidity and body mass index (BMI) of 37.0 to 37.9 in adult ([facility]) 3. Vaginal candidiasis 4. Type 2 diabetes mellitus with hyperlipidemia ([facility]) ([facility]) - AMB POC HEMOGLOBIN A1C - AMB POC GLUCOSE TEST - Tirzepatide (Mounjaro) 5 MG/0.5ML solution auto-injector; Inject 2 mg under the skin 1 (one) time per week., Starting [facility] 10/30/2024, Normal 5. Vitamin D deficiency 6. Encounter for therapeutic drug monitoring Goal A1C = <7%. Diabetes is not stable Insulin is not necessary for ongoing mgmt. - A1C is worse at 7.4%, She provides no BG readings Fasting BG is 243 - She had a normal gastric emptying study in 07/2024, can proceed with GLP/GIP use - She did not tolerate higher doses of Ozempic (>0.5 mg), ongoing GI issues, stopped in 06/2024 - Was on Victoza in the past, stopped in 2021 and changed to Ozempic to help with weight loss, A1C was 6.5%, she was also on insulin at this time - Now does not tolerate, was on it Trulicity since 06/2023 until now. ongoing GI AE, abd pain, nausea, diarrhea/constipation, dehydration. She is physically unable to increase the dose due to high side effects - Obesity- Encouraged lifestyle modifications of diet and exercise as tolerated, Discussed lifestyle in depth. Discussed other GLP options (Mounjaro and Rybelsus), insurance coverage is an limiting factor. She has agreed to try Mounjaro as alternative GLP/GIP, will need a PA - Will be agreeable to try Ozmepic low dose again and see if that is effective for BG/weight - She does not want to resume insulin - Pt will make the following changes to regimen: - Continue Metformin 1000 mg twice a day - Continue Invokana 100 mg daily - Start Mounjaro 5 mg weekly - Vaginal yeast- Discussed AE of SGLT-2, she has another current yeast infection, if continues will discuss stopping SGLT-2. Rx for diflucan sent - Recommend fredo download as needed - Discussed A1C and BG goals - Encouraged optimal foot care- follow with podiatry if needed - Encouraged following with ophthalmology - Patient counseled on the importance of taking medication as prescribed - Patient counseled on the effects of uncontrolled DM on other organ systems - Patient counseled on risk factors assoicated with diabetes - Patient counseled on detection and treatment of hypoglycemia - Patient instructed to call office if BG >250 or <70 consistently - FLP- LDL slightly above goal 06/2024, on statin. Diet is poor recently. She would like not change dose at this point. Will follow closely - Vit D Deficiency- On vit D daily, is stable on supplement - Pt counseled about these recommendations. Pt voiced understanding. Diagnostic data I reviewed: Outside Documentation: N/A Laboratory: Yes Radiographic: N/A Pt was advised of the results. [] Records from outside facility/PCP office to be requested. [x] Scripts sent to pharmacy of pt choice. Follow up for Next scheduled follow-up; 02/2025- Dr. Ramos . Subjective HPI PCP = Yakov Donaldson MD Referring provider: PCP Initial [facility] Office visit: 2018 DAYANNA: 06/2024- With me DM Onset: 30 y.o Type of DM: 2 Since last office visit denies new health problems, denies hospitalizations, and denies surgeries. Pt feels their blood sugars are unchanged since DAYANNA. Pt complaints include: - Weight is about the same overall, down 6 lbs overall - She does not like the Trulicity at all, ongoing GI AE, abd pain, nausea - Is having yeast infections monthly - 07/2024- she had a gastric emptying study and it was normal - She is very concerned with ongoing high BG, no weight changes, she feels overall poor - She is experiencing high stress - She does not want to be on insulin again Current DM Medications: Metformin 1000 mg twice a day Invokana 100 mg daily Trulicity 3 mg weekly Missing medication doses: No Reports HGM not recently Blood Sugar Log present: No Hyperglycemia present: Yes Hypoglycemia present: No BG in office today was 243, fasting Following Diet for DM: Yes Diet has improved overall No fried foods Following Exercise Regimen: No ADLS, has been going to the gym few times per week Previously Used DM Meds: Yes Insulin during Ozempic- was not tolerable at higher doses Trulicity- ongoing AE, could not tolerate >3 mg dose Victoza- stopped in 2021 and changed to Ozempic Jardiance- yeast infection Invokana- yeast infection Complications: Cardiovascular -- Yes- HLP Statin Use -- Yes-pravastatin 10 mg daily Last KRIS/Retina Eval: 06/2024- [facility] Retinopathy -- No Nephropathy -- Yes STEPHAN/ARB Use -- No Polyneuropathy -- No Obesity -- Yes, Body mass index is 37.9 kg/m?. Other --Yes - She still has periods, they are irregular Vit D Deficiency- On Vit D daily, 06/2024 WNL Review of Systems Constitutional: Negative for activity change, appetite change and unexpected weight change. Gastrointestinal: Positive for constipation, diarrhea and vomiting. Negative for nausea. Endocrine: Positive for cold intolerance. Negative for polydipsia, polyphagia and polyuria. Genitourinary: Negative for dysuria. Skin: Negative for color change, pallor and wound. Allergies Allergen Reactions Lisinopril Penicillins Statins Amoxicillin-Pot Clavulanate Rash Outpatient Medications Prior to Visit Medication Sig Dispense Refill canagliflozin (Invokana) 100 MG Take 1 tablet (100 mg) by mouth daily. 1 tablet once a day 90 tablet 3 Continuous Glucose Sensor (FreeStyle Fredo 3 Plus Sensor) misc 1 each daily. Change sensor every 15 days 6 each 3 metFORMIN (Glucophage) 1000 MG tablet Take 1 tablet (1,000 mg) by mouth 2 times daily (with meals). 180 tablet 3 dulaglutide (Trulicity) 3 MG/0.5ML Inject 3 mg under the skin 1 (one) time per week. 4 each 11 aspirin 81 MG EC tablet Take 81 mg by mouth in the morning. 1 tablet a day. cholecalciferol (Vitamin D-3) 25 MCG (1000 UT) capsule Take 1,000 Units by mouth in the morning. 1 capsule a day. Multiple Vitamin (multivitamin) capsule Take 1 capsule by mouth daily. omeprazole (PriLOSEC) [address] capsule Take 20 mg by mouth in the morning. pravastatin (Pravachol) 10 MG tablet TAKE 1 TABLET BY MOUTH EVERY 12 HOURS 30 tablet 3 No facility-administered medications prior to visit. Past Medical History: Diagnosis Date Diabetes mellitus (HCC) Gastroparesis Hyperlipidemia Type 2 diabetes mellitus (HCC) Vitamin D deficiency Social History Tobacco Use Smoking status: Never Smokeless tobacco: Never Substance Use Topics Alcohol use: Yes Past Surgical History: Procedure Laterality Date BACK SURGERY CERVIX LESION DESTRUCTION TONSILLECTOMY (HISTORICAL) WISDOM TOOTH EXTRACTION Family History Problem Relation Name Age of Onset Diabetes Mother Heart attack Father Stroke Father Diabetes Sister gestational Liver disease Mother Diabetes Father Objective BP 124/82 Pulse 80 Ht 5' 7 (1.702 m) Wt 242 lb (110 kg) BMI 37.90 kg/m? Physical Exam Vitals reviewed. Constitutional: Appearance: Normal appearance. She is obese. HENT: Head: Normocephalic and atraumatic. Nose: Nose normal. Pulmonary: Effort: Pulmonary effort is normal. Skin: General: Skin is warm and dry. Neurological: General: No focal deficit present. Mental Status: She is alert and oriented to person, place, and time. Psychiatric: Mood and Affect: Mood normal. Behavior: Behavior normal. Thought Content: Thought content normal. Judgment: Judgment normal. Data Reviewed and Summarized Labs: Lab Results Component Value Date HGBA1C 7.4 (A) 10/30/2024 No components found for: EAG Chemistry Lab Results Component Value Date/Time NA 139 06/23/2024 1103 K 4.1 06/23/2024 1103 CL 104 06/23/2024 1103 CO2 28 06/23/2024 1103 BUN 10 06/23/2024 1103 CREATININE 0.82 06/23/2024 1103 CREATININE 0.78 10/06/2021 1007 Lab Results Component Value Date/Time CALCIUM 9.4 06/23/2024 1103 ALKPHOS 61 06/23/2024 1103 AST 20 06/23/2024 1103 ALT 18 06/23/2024 1103 BILITOT 0.5 06/23/2024 1103 Lab Results Component Value Date CHOL 198 06/23/2024 CHOL 183 07/18/2023 CHOL 168 04/10/2022 Lab Results Component Value Date TRIG 155 (H) 06/23/2024 TRIG 140 07/18/2023 TRIG 121 04/10/2022 Lab Results Component Value Date HDL 62 06/23/2024 HDL 55 07/18/2023 HDL 52 04/10/2022 Lab Results Component Value Date LDLCALC 105 (H) 06/23/2024 LDLCALC 100 (H) 07/18/2023 LDLCALC 92 04/10/2022 No results found for: VLDL Lab Results Component Value Date CHOLHDLRATIO 3 06/23/2024 CHOLHDLRATIO 3 07/18/2023 CHOLHDLRATIO 3 04/10/2022 Lab Results Component Value Date MICROALBUR <5.0 06/23/2024 Lab Results Component Value Date TSH 2.05 06/23/2024 Imaging/Testing: N/A Electronically signed Stanton Monroy APRN - [facility] 10/30/24 OFFICE VISIT Observed: 10/30/2024 8:00 AM Status: COMPLETED Source: [facility] [id number] Wendi Cortes 1975 F Date Provider Department Center 10/30/2024 [facility] None Family History Problem Relation Age of Onset Diabetes Mother Heart attack Father Stroke Father Diabetes Sister Comments: gestational Liver disease Mother Diabetes Father Family Status - Relation Status Age at Mother Father Alive Sister Alive Brother Alive Level of Service:98405 AR OFFICE/OUTPATIENT ESTABLISHED MOD MDM 30 MIN Reason for Visit and Comments: Follow-up [559343] Diabetes Mellitus [183] 36 Observed: 10/28/2024 8:10 AM Status: COMP LETED Source: [facility] Rx pended DAYANNA 06/28 NOV 10/26 CNPN Observed: 10/16/2024 12:00 AM Status: COMPLETED Source: [facility] Telephone (GST[facility]) BAYLEE CORTES ([id number]) 1975 F [place] Date Time Provider Department 10/16/24 DANA PERALTA During your visit today, we recorded the following information about you: Bianca Tarango 10/16/2024 4:22 PM Signed LVM to see if pt wanted colonoscopy from 06/2024 Allergies As of Date: 10/16/2024 Noted Allergy Reaction AMOXICILLIN-POT CLAVULANATE 06/23/2024 4 - Hives Comments: Augmentin allergy per admission orders (= itching, hives LDRP/FLORIDALMA) 0816 11/26/2006JO AUGMENTIN (AMOXICILLIN-POT CLAVUL*02/02/2016 2 - Rash Date Reviewed: 06/23/2024 Reviewed by: Dana Peralta PA-C - Fully Assessed Prescriptions as of 10/16/2024 - FREESTYLE FREDO 3 SENSOR hilton CHANGE SENSOR EVERY 14 DAYS - INVOKANA 100 mg tab Take 1 tablet by mouth every afternoon. - TRULICITY 1.5 mg/0.5 mL pen injector INJECT 1.5 MG UNDER THE SKIN 1 (ONE) TIME PER WEEK. - metFORMIN (GLUCOPHAGE) 1,000 mg tablet 1,000 mg. - naproxen sodium (ALEVE) 220 mg tablet 440 mg. - omeprazole (PRILOSEC) 40 mg capsule Take 1 capsule by mouth every afternoon. - pravastatin (PRAVACHOL) 10 mg tablet Take 1 tablet by mouth every afternoon. - fluconazole (DIFLUCAN) 150 mg tablet - glimepiride (AMARYL) 4 mg tablet - SIMVASTATIN ORAL Take by mouth. - BUPROPION HCL (WELLBUTRIN ORAL) Take by mouth. - metFORMIN (GLUCOPHAGE) 1,000 mg tablet Take 1,000 mg by mouth twice daily with meals. - GLYBURIDE ORAL Take 2 mg by mouth twice daily. - copper (PARAGARD T 380A) 380 square mm IUD by INTRAUTERINE route. Problem List As Of Date: 10/16/2024 (None) Encounter Status:Closed by BIANCA TARANGO on 10/16/24 36 Observed: 08/25/2024 7:30 AM Status: COMPLETED Source: [employer] [facility] Rx pended for Pravastatin 10 mg DAYANNA 06/28 NOV 10/30/24 ANES PRE-OP Observed: 08/14/2024 8:15 AM Status: COMPLETED Source: [facility] HNO ID: [id number] Author: JAYNE GARBER APRN.MEDIATOR Service: Anesthesiology Author Type: Nurse Speech And Drama Teacher Type: Anesthesia Preprocedure Evaluation Filed: 08/14/2024 08:16 Note Text: ANESTHESIOLOGY DAY OF SURGERY NOTE : 1975 Procedure Information Date/Time: 09/03/24 0845 Scheduled providers: Chris Jane MD Procedure: COLONOSCOPY SCREENING Location: Ambulatory Surgery Estimated body mass index is 38.95 kg/m? as calculated from the following: Height as of 06/23/24: 170.2 cm (5' 7). Weight as of 06/23/24: 112.8 kg (248 lb 11.2 oz). Most recent hematocrit and potassium results: No results found for this basename: HCT,HEMATOCRIT,K,POTASSIUM Relevant Problems No relevant active problems I - PHYSICAL EVALUATION AIRWAY Patient intubated: No. II - ANESTHESIA PLAN ASA Score: 2 Anesthetic Plan: MAC The patient is not a current smoker. Beta Neelima Monitoring Plan Post Procedure Analgesic Plan No vitals data found for the desired time range. Outpatient Medications as of 09/03/2024 Medication Sig - FREESTYLE FREDO 3 SENSOR hilton CHANGE SENSOR EVERY 14 DAYS - INVOKANA 100 mg tab Take 1 tablet by mouth every afternoon. - TRULICITY 1.5 mg/0.5 mL pen injector INJECT 1.5 MG UNDER THE SKIN 1 (ONE) TIME PER WEEK. (Patient not taking: Reported on 06/23/2024) - metFORMIN (GLUCOPHAGE) 1,000 mg tablet 1,000 mg. - naproxen sodium (ALEVE) 220 mg tablet 440 mg. - omeprazole (PRILOSEC) 40 mg capsule Take 1 capsule by mouth every afternoon. - pravastatin (PRAVACHOL) 10 mg tablet Take 1 tablet by mouth every afternoon. - fluconazole (DIFLUCAN) 150 mg tablet - glimepiride (AMARYL) 4 mg tablet - SIMVASTATIN ORAL Take by mouth. - BUPROPION HCL (WELLBUTRIN ORAL) Take by mouth. - metFORMIN (GLUCOPHAGE) 1,000 mg tablet Take 1,000 mg by mouth twice daily with meals. - GLYBURIDE ORAL Take 2 mg by mouth twice daily. - copper (PARAGARD T 380A) 380 square mm IUD by INTRAUTERINE route. No current facility-administered medications on file as of 09/03/2024. I have interviewed and examined the patient. I have reviewed the medical record and/or the pre-anesthesia evaluation, pertinent labs, and test results. This contains updated information obtained within 48 hours of Surgery/Procedure. SIGNATURE: Jayne Garber APRN.CRNA PATIENT NAME: Baylee Cortes DATE: August 14, 2024 TIME: 8:15 AM CSN: [id number] Observed: 08/08/2024 1:44 PM Status: COMPLETED Source: [employer] [facility] Rx pended for fredo sensor & Pravastatin. Please send Zofran also not sure what dose need to be pend. Thank you! [id number] Observed: 07/29/2024 11:27 AM Status: COMPLETED Source: [employer] Please advise Pulled fredo report if needed thanks [id number] Observed: 07/23/2024 11:20 AM Status: COMPLETED Source: [employer] [facility] Pulled fredo report if neede d. Please advise NM GASTRIC EMPTYING SOLID Observed: 09/2024 11:00 AM Status: F Source: [facility] * * *Final Report* * * DATE OF EXAM: Jul 08 2024 11:00AM MY 0017 - NM GASTRIC EMPTYING SOLID / PROCEDURE REASON: multiple diagnoses * * * * Physician Interpretation * * * * SOLID MEAL GASTRIC EMPTYING STUDY: CLINICAL HISTORY: Assess for abnormal gastric emptying of a solid meal. TECHNIQUE: 1.0 mCi Tc-99m sulfur colloid was given orally in a meal consisting of 4 oz Egg Beaters, 2 slice(s) of toast, 1 oz jelly, and 8 oz water, consumed over 5 to 10 minutes. RESULT: Solid study demonstrates: - 42% gastric retention at 1hr (normal range, 37-90%), - 2% retention at 2hr (normal range, 30-60%) 42% retention at 1hr (rapid emptying is <30% retention at 1hr) suggests no evidence of accelerated emptying of gastric contents. IMPRESSION: NORMAL RATE OF GASTRIC EMPTYING OF SOLID MEAL. Insurance Loss Assessor: ELEANOR Transcribe Date/Time: Jul 08 2024 11:24A Dictated by : SAMANTHA LU MD This examination was interpreted and the report reviewed and electronically signed by: SAAD ARREOLA MD on Jul 08 2024 11:26AM EST [id number] PROGRESS Observed: 07/08/2024 8:00 AM Status: COMPLETED Source: [facility] HNO ID: [id number] Author: MINDY TORRES RT(Idalmis) Service: Nuclear Medicine Author Type: Technologist Type: Progress Notes Filed: 07/08/2024 09:45 Note Text: RADIOLOGY SERVICE PROGRESS NOTE SERVICE DATE: 07/08/2024 SERVICE TIME: 9:41 AM PATIENT IDENTITY VERIFICATION COMPLETED USING TWO (2) STANDARD IDENTIFIERS: Name and Date of confirmed by patient verbally and Name and Date of confirmed by identification band FALL SCREENING: Has the patient had 2 falls in the last year or 1 fall with injury or currently using an Ambulatory Assistive Device (Walker, Cane, Wheelchair, Crutches, etc.)? No PATIENT GENDER DATA: .female : No ALLERGIES: Reviewed and unchanged MEDICATIONS REVIEWED: Not applicable PATIENT RELEVANT IMPLANT DATA REVIEWED: Not Applicable PATIENT PRESENTS WITH AN IMPLANTABLE OR ATTACHED CHAIN SALES REPRESENTATIVE: No CREATININE: No results found for: CREAT, EGFROTH, EGFRAA P.O.C.T. RESULTS: N/A July 08, [address] PERFORMED: No IV SITE: NM only - not applicable, oral or physician administered agents given to patient POST EXAM PIV STATUS: Not applicable PROCEDURE TYPE: NM GET: 1.1 mCi Tc99m SULFUR COLLOID was administered orally via 4 ounces of Egg Beaters,2 pieces of toast, 1 ounce of jelly with 8 ounces of water orally ADMINISTRATION TIME: 08:22 PATIENT DISCHARGED TO: Ambulatory patient, left [place] department area. Is this a therapy: No A Diagnostic radioactive procedure has taken place, with no further precautions necessary other than routine body substance precautions. More information regarding radiation safety can be found using this link: [email or web address] SIGNATURE: RT Olga(Idalmis) PATIENT NAME: Baylee Cortes DATE: July 08, 2024 TIME: 9:41 AM PAGER/CONTACT #: [email or web address] PRE-OP Observed: 06/27/2024 2:18 PM Status: COMPLETED Source: [facility] HNO ID: [id number] Author: AISHA MCCRARY APRN.MEDIATOR Service: ? Author Type: Nurse Speech And Drama Teacher Type: Anesthesia Preprocedure Evaluation Filed: 06/27/2024 14:18 Note Text: ANESTHESIOLOGY DAY OF SURGERY NOTE : 1975 Procedure Information Date/Time: 07/02/24 1300 Scheduled providers: Simone Escobar MD Procedure: COLONOSCOPY SCREENING Location: Ambulatory Surgery Estimated body mass index is 38.95 kg/m? as calculated from the following: Height as of 06/23/24: 170.2 cm (5' 7). Weight as of 06/23/24: 112.8 kg (248 lb 11.2 oz). Most recent hematocrit and potassium results: No results found for this basename: HCT,HEMATOCRIT,K,POTASSIUM Relevant Problems No relevant active problems I - PHYSICAL EVALUATION AIRWAY Patient intubated: No. II - ANESTHESIA PLAN ASA Score: 2 Anesthetic Plan: MAC The patient is not a current smoker. Beta Neelima Monitoring Plan Post Procedure Analgesic Plan No vitals data found for the desired time range. Outpatient Medications as of 07/02/2024 Medication Sig - FREESTYLE FREDO 3 SENSOR hilton CHANGE SENSOR EVERY 14 DAYS - INVOKANA 100 mg tab Take 1 tablet by mouth every afternoon. - TRULICITY 1.5 mg/0.5 mL pen injector INJECT 1.5 MG UNDER THE SKIN 1 (ONE) TIME PER WEEK. (Patient not taking: Reported on 06/23/2024) - metFORMIN (GLUCOPHAGE) 1,000 mg tablet 1,000 mg. - naproxen sodium (ALEVE) 220 mg tablet 440 mg. - omeprazole (PRILOSEC) 40 mg capsule Take 1 capsule by mouth every afternoon. - pravastatin (PRAVACHOL) 10 mg tablet Take 1 tablet by mouth every afternoon. No current facility-administered medications on file as of 07/02/2024. I have interviewed and examined the patient. I have reviewed the medical record and/or the pre-anesthesia evaluation, pertinent labs, and test results. This contains updated information obtained within 48 hours of Surgery/Procedure. SIGNATURE: Aisha Mccrary APRN.MEDIATOR PATIENT NAME: Baylee Cortes DATE: June 27, 2024 TIME: 2:18 PM CSN: [id number] OFFICE VISIT Observed: 06/25/2024 10:00 AM Status: COMPLETED Source: [facility] [id number] Wendi Cortes 1975 F Date Provider Department Center 06/25/20[id number] None Family History Problem Relation Age of Onset Diabetes Mother Heart attack Father Stroke Father Diabetes Sister Comments: gestational Liver disease Mother Diabetes Father Family Status - Relation Status Age at Mother Father Alive Sister Alive Brother Alive Level of Service:47541 AR OFFICE/OUTPATIENT ESTABLISHED MOD MDM 30 MIN Reason for Visit and Comments: Follow-up [263065] Diabetes Mellitus [183] PROGRESS NOTE Observed: 06/25/2024 10:00 AM Status: COMPLETED Source: [facility] MEDICAL CE [facility] [address] [place] [address] Dept: [phone] Dept Loc: [phone] Visit type: Established patient Reason for Visit: Follow-up and Diabetes Mellitus Assessment and Plan 1. Type 2 diabetes mellitus with hyperglycemia, without long-term current use of insulin ([facility]) - fluconazole (Diflucan) 150 MG tablet; Take 1 tablet (150 mg) by mouth daily for 2 days. Can repeat x1 if needed, Starting Sun06/25/2024, Until Sun06/27/2024, Normal - metFORMIN (Glucophage) 1000 MG tablet; Take 1 tablet (1,000 mg) by mouth 2 times daily (with meals)., Starting Sun06/25/2024, Normal - canagliflozin (Invokana) 100 MG; Take 1 tablet (100 mg) by mouth daily. 1 tablet once a day, Starting Sun06/25/2024, Normal - Continuous Glucose Sensor (FreeStyle Fredo 3 Sensor) [facility]; by Other route every 14 (fourteen) days., Starting Sun06/25/2024, Normal - Hm Diabetes Foot Exam 2. Class 2 severe obesity due to excess calories with serious comorbidity and body mass index (BMI) of 38.0 to 38.9 in adult ([facility]) 3. Vaginal candidiasis 4. Type 2 diabetes mellitus with hyperlipidemia (HCC) ([facility]) 5. Vitamin D deficiency 6. Encounter for therapeutic drug monitoring Goal A1C = <7%. Diabetes is not stable Insulin is not necessary for ongoing mgmt. - A1C is worse at 7.1%, pt has not worn fredo or checked BG in months. Pt has alos been slacking on lifestyle and DM management - She did not tolerate higher doses of Ozempic (>0.5 mg), ongoing GI issues - Encouraged lifestyle modifications of diet and exercise as tolerated, Discussed lifestyle in depth. She would like to continue with those vs med changes - Pt will make no changes to regimen at this time: - Metformin 1000 mg twice a day - Invokana 100 mg daily - Hold off on GLP, until GI work-up is complete. Pt will notify us if she starts Trulicity - Discussed other GLP options (Mounjaro and Rybelsus). Can discuss further if she proceeds with GLP use - Vaginal yeast- Discussed AE of SGLT-2, she has one current yeast infection, if continues will discuss stopping SGLT-2. Rx for diflucan sent - Recommend fredo download as needed - Discussed A1C and BG goals - Encouraged optimal foot care- follow with podiatry if needed - Encouraged following with ophthalmology - Patient counseled on the importance of taking medication as prescribed - Patient counseled on the effects of uncontrolled DM on other organ systems - Patient counseled on risk factors assoicated with diabetes - Patient counseled on detection and treatment of hypoglycemia - Patient instructed to call office if BG >250 or <70 consistently - FLP- LDL slightly above goal 06/2024, on statin. Diet is poor recently. She would like not change dose at this point. Will follow closely - Vit D Deficiency- On vit D daily, is stable on supplement - Pt counseled about these recommendations. Pt voiced understanding. Diagnostic data I reviewed: Outside Documentation: N/A Laboratory: Yes Radiographic: N/A Pt was advised of the results. [] Records from outside facility/PCP office to be requested. [x] Scripts sent to pharmacy of pt choice. Follow up for 4 months with me, 7-[address] Ramos . Subjective HPI PCP = Yakov Donaldson MD Referring provider: PCP Initial [facility] Office visit: 2017 DAYANNA: 12/12/2023- With me DM Onset: 30 y.o Type of DM: 2 Since last office visit denies new health problems, denies hospitalizations, and denies surgeries. Pt feels their blood sugars are unchanged since DAYANNA. Pt complaints include: - 03/2024- pt was having changes in diet, increased sugary foods/pop. Has gained 10 lbs since DAYANNA - Is following with GI and having another gastric emptying study and colonoscopy. For this reason, she has not started Trulicity yet - Did not tolerate higher doses Ozempic (>0.5 mg) in the past - She has not been checking her BG recently - Has a yeast infection currently, has been good overall - She is starting to get back on track with lifestyle Current DM Medications: Metformin 1000 mg twice a day Invokana 100 mg daily Missing medication doses: No Reports HGM not recently Blood Sugar Log present: No Hyperglycemia present: Yes Hypoglycemia present: No - BG on fasting labs was 161 Following Diet for DM: Yes Some regular pop recently Diet is overall poor recently Following Exercise Regimen: No ADLS, Getting back on track Previously Used DM Meds: Yes Insulin during Complications: Cardiovascular -- Yes- HLP Statin Use -- Yes-pravastatin 10 mg daily Last KRIS/Retina Eval: due- [facility] Retinopathy -- No Nephropathy -- Yes STEPHAN/ARB Use -- No Polyneuropathy -- No Obesity -- Yes, Body mass index is 38.37 kg/m?. Other --Yes Vit D Deficiency- On Vit D daily, 06/2024 WNL Review of Systems Constitutional: Negative for activity change, appetite change and unexpected weight change. Gastrointestinal: Negative for diarrhea, nausea and vomiting. Endocrine: Positive for cold intolerance. Negative for polydipsia, polyphagia and polyuria. Genitourinary: Negative for dysuria. Skin: Negative for color change, pallor and wound. Allergies Allergen Reactions Lisinopril Penicillins Statins Amoxicillin-Pot Clavulanate Rash Outpatient Medications Prior to Visit Medication Sig Dispense Refill aspirin 81 MG EC tablet Take 81 mg by mouth in the morning. 1 tablet a day. cholecalciferol (Vitamin D-3) 25 MCG (1000 UT) capsule Take 1,000 Units by mouth in the morning. 1 capsule a day. Multiple Vitamin (multivitamin) capsule Take 1 capsule by mouth daily. omeprazole (PriLOSEC) [address] capsule Take 20 mg by mouth in the morning. pravastatin (Pravachol) 10 MG tablet Take 1 tablet (10 mg) by mouth daily. 90 tablet 3 canagliflozin (Invokana) 100 MG Take 1 tablet (100 mg) by mouth daily. 1 tablet once a day 90 tablet 3 Continuous Blood Gluc Sensor (FreeStyle Fredo 3 Sensor) [facility] [place] [facility] Other route every 14 (fourteen) days. 6 each 5 metFORMIN (Glucophage) 1000 MG tablet Take 1 tablet (1,000 mg) by mouth in the morning and 1 tablet (1,000 mg) in the evening. Take with meals. 180 tablet 3 dulaglutide (Trulicity) 1.5 MG/0.5ML Inject 1.5 mg under the skin 1 (one) time per week. (Patient not taking: Reported on 06/25/2024) 4 Pen 3 No facility-administered medications prior to visit. Past Medical History: Diagnosis Date Diabetes mellitus (HCC) Gastroparesis Hyperlipidemia Type 2 diabetes mellitus (HCC) Vitamin D deficiency Social History Tobacco Use Smoking status: Never Smokeless tobacco: Never Substance Use Topics Alcohol use: Yes Past Surgical History: Procedure Laterality Date BACK SURGERY CERVIX LESION DESTRUCTION TONSILLECTOMY (HISTORICAL) WISDOM TOOTH EXTRACTION Family History Problem Relation Name Age of Onset Diabetes Mother Heart attack Father Stroke Father Diabetes Sister gestational Liver disease Mother Diabetes Father Objective BP 132/82 Pulse 80 Ht 5' 7 (1.702 m) Wt 245 lb (111 kg) BMI 38.37 kg/m? Physical Exam Vitals reviewed. Constitutional: Appearance: Normal appearance. She is obese. HENT: Head: Normocephalic and atraumatic. Nose: Nose normal. Pulmonary: Effort: Pulmonary effort is normal. Skin: General: Skin is warm and dry. Neurological: General: No focal deficit present. Mental Status: She is alert and oriented to person, place, and time. Comments: DM Foot Examination: Monofilament Sensation --- Normal Lesion(s) ---absent Callus Formation: absent Cyanosis --- absent Pulses --- present Psychiatric: Mood and Affect: Mood normal. Behavior: Behavior normal. Thought Content: Thought content normal. Judgment: Judgment normal. Data Reviewed and Summarized Labs: Lab Results Component Value Date HGBA1C 7.1 (H) 06/23/2024 No components found for: EAG Chemistry Lab Results Component Value Date/Time NA 139 06/23/2024 1103 K 4.1 06/23/2024 1103 CL 104 06/23/2024 1103 CO2 28 06/23/2024 1103 BUN 10 06/23/2024 1103 CREATININE 0.82 06/23/2024 1103 CREATININE 0.78 10/06/2021 1007 Lab Results Component Value Date/Time CALCIUM 9.4 06/23/2024 1103 ALKPHOS 61 06/23/2024 1103 AST 20 06/23/2024 1103 ALT 18 06/23/2024 1103 BILITOT 0.5 06/23/2024 1103 Lab Results Component Value Date CHOL 198 06/23/2024 CHOL 183 07/18/2023 CHOL 168 04/10/2022 Lab Results Component Value Date TRIG 155 (H) 06/23/2024 TRIG 140 07/18/2023 TRIG 121 04/10/2022 Lab Results Component Value Date HDL 62 06/23/2024 HDL 55 07/18/2023 HDL 52 04/10/2022 Lab Results Component Value Date LDLCALC 105 (H) 06/23/2024 LDLCALC 100 (H) 07/18/2023 LDLCALC 92 04/10/2022 No results found for: VLDL Lab Results Component Value Date CHOLHDLRATIO 3 06/23/2024 CHOLHDLRATIO 3 07/18/2023 CHOLHDLRATIO 3 04/10/2022 Lab Results Component Value Date MICROALBUR <5.0 06/23/2024 Lab Results Component Value Date TSH 2.05 06/23/2024 Imaging/Testing: N/A Electronically signed Stanton Monroy APRN - JOSELITO 06/25/24 CNPChirag Observed: 06/25/2024 12:00 AM Status: COMPLETED Source: [facility] Telephone (ASCNOR) BAYLEE CORTES ([id number]) 1975 F Date Time Provider Department 06/25/24 SIMONE ESCOBAR During your visit today, we recorded the following information about you: Isha Gregg 06/25/2024 10:23 AM Signed Pre op call- LM on VM Allergies As of Date: 06/25/2024 Noted Allergy Reaction AMOXICILLIN-POT CLAVULANATE 06/23/2024 4 - Hives Comments: Augmentin allergy per admission orders (= itching, hives LDRP/FLORIDALMA) 0816 11/26/2006JO Date Reviewed: 06/23/2024 Reviewed by: Dana Peralta PA-C - Fully Assessed Reason for Visit: PreOp Call [[id number]] Prescriptions as of 06/25/2024 - FREESTYLE FREDO 3 SENSOR hilton CHANGE SENSOR EVERY 14 DAYS - INVOKANA 100 mg tab Take 1 tablet by mouth every afternoon. - TRULICITY 1.5 mg/0.5 mL pen injector INJECT 1.5 MG UNDER THE SKIN 1 (ONE) TIME PER WEEK. - metFORMIN (GLUCOPHAGE) 1,000 mg tablet 1,000 mg. - naproxen sodium (ALEVE) 220 mg tablet 440 mg. - omeprazole (PRILOSEC) 40 mg capsule Take 1 capsule by mouth every afternoon. - pravastatin (PRAVACHOL) 10 mg tablet Take 1 tablet by mouth every afternoon. Problem List As Of Date: 06/25/2024 (None) Encounter Status:Closed by ISHA GREGG on 06/25/24 FREE T4 Collected: 11:03 AM Status: F Source: [facility] TYPE CODE TESTS RESULT OUT OF RANGE REFERENCE UNITS LAB [id number] FREE T4 1.02 0.70-1.48 ng/dL Performed By: #### [id number], L [id number], [id number] #### Plasma Processing Technician: FELIX SANTILLAN ([id number]) [facility] ([facility]) [address] [place] [address] THYROID STIMULATING HORMONE Collected: 06/23/2024 11: 03 AM Status: F Source: [facility] TYPE CODE TESTS RESULT OUT OF RANGE REFERENCE UNITS LAB [id number] THYROID STIMULATING HORMONE 2.05 0.35-4.94 uIU/mL Performed By: #### [id number], L [id number], [id number] #### Plasma Processing Technician: FELIX SANTILLAN ([id number]) [facility] ([facility]) [address] [place] [address] VITAMIN D DEFICIENCY SCREENI NG (VIT D 25) Collected: 06/23/2024 11:03 AM Status: F Source: [facility] TYPE CODE TESTS RESULT OUT OF RANGE REFERENCE UNITS LAB [id number] VIT D 25-OH, TOTAL 35 >20 ng/mL Result Comment: ORDER COMMEN TS: Target concentration: 30 - 40 ng/mL; toxicity seen at concentrations >100 ng/mL Therapy is based on measurement of Total 25-OHD with the following classification levels: Less than 20 ng/mL: Indicative of Vit D deficiency 20-30 ng/mL: Suggests Vit D insufficiency Optimal: Greater than or equal to 30 ng/mL Test performed by AOL Competitive Immunoassay, measuring Total Vitamin D, not individual fractions. Performed By: #### [id number], L AB535, [id number] #### Plasma Processing Technician: FELIX SANTILLAN ([id number]) [facility] ([facility]) [address] [place] [address] COMPREHENSIVE METABOLIC PANEL Collected : 06/23/2024 11:03 AM Status: F Source: [facility] TYPE CODE TESTS RESULT OUT OF RANGE REFERENCE UNITS LAB [id number] SODIUM 139 136-145 mmol/L LAB [id number] POTASSIUM 4.1 3.5-5.1 mmol/L Result Comment: Plasma potas sium values may be up to 0.5 mmol/L lower than serum values. LAB [id number] CHLORIDE 104 98-107 mmol/L LAB [id number] CARBON DIOXIDE 28 22-29 mmol/L LAB [id number] ANION GAP (OG, CALCULATED) 7 3-13 mmol/L LAB [id number] UREA NITROGEN 10 8-21 mg/dL LAB [id number] CREATININE 0.82 0.57-1.11 mg/dL LAB [id number] GLUCOSE 161 High 74-100 mg/dL LAB 5021991 CALCIUM 9.4 8.4-10.2 mg/dL LAB [id number] AST (SGOT) 20 <34 U/L LAB [id number] ALT 18 <30 U/L LAB [id number] ALKALINE PHOSPHATASE 61 40-150 U/L LAB 6334634 ALBUMIN 3.6 3.5-5.0 g/dL LAB 6598033 BILIRUBIN, TOTAL 0.5 <1.2 mg/dL LAB [id number] TOTAL PROTEIN 7.5 6.4-8.3 g/dL LAB [id number] GLOMERULAR FILTRATION RATE ML/MIN/1.73 SQ M.PREDICTED 89.5 >60.0 mL/min/1. 73m*2 Result Comment: Calculation based on the Chronic Kidney Disease Epidemiology Collaboration (CKD-EPI) equation refit without adjustment for race Performed By: #### LUIS MCGOWAN #### Plasma Processing Technician: FELIX SANTILLAN ([id number]) [facility] ([facility]) [address] [place] [address] LIPID PANEL Collected: 06/23/2024 11:03 AM Status: F Source: [facility] TYPE CODE TESTS RESULT OUT OF RANGE REFERENCE UNITS LAB [id number] TRIGLYCERIDE 155 High <150 mg/dL LAB 5530272 CHOLESTEROL 198 <200 mg/dL LAB 9359552 HDL CHOLESTEROL 62 >=60 mg/dL LAB 9084573 CHOL/HDL 3 Result Comment: Ref Range: < 3 Low Risk for CHD 3-6 Mod Risk for CHD > 6 High Risk for CHD LAB 6287 VERY LOW DENSITY LIPOPROTEIN, CALCULATED 31 High <=30 mg/dL LAB 6288 NON-HDL CHOLESTEROL, CALCULATED 136 High <130 LAB [id number] LOW DENSITY LIPOPROTEIN 105 High 0-<100 mg/dL Performed By: #### LUIS MCGOWAN #### Plasma Processing Technician: FELIX SANTILLAN ([id number]) [facility] [employer] ([facility]) [address] [place] [address] HEMOGLOBIN A1C Collected: 06/23/2024 11:03 AM Status : F Source: [facility] TYPE CODE TESTS RESULT OUT OF RANGE REFERENCE UNITS LAB [id number] HEMOGLOBIN A1C 7.1 High <5.7 %HbA1C Result Comment: Normal less than 5.7% Prediabetes 5.7% to 6.4% Diabetes 6.5% or higher --HgbA1C levels may not be accurate in patients who have renal disease, received recent blood transfusions, are anemic, or who have dyshemoglobinemia. LAB [id number] ESTIMATED AVERAGE GLUCOSE 157 mg/dL Result Comment: ORDER COMMEN TS: HbA1c values of 5.7-6.4 percent indicate an increased risk for developing diabetes mellitus. HbA1c values greater than or equal to 6.5 percent are diagnostic of diabetes mellitus. For diagnosis of diabetes in individuals without unequivocal hyperglycemia, results should be confirmed by repeat testing. Performed By: #### [id number] ### # Plasma Processing Technician: FELIX SANTILLAN ([id number]) [facility] [employer] ([facility] [address] [place] [address] MICROALBUMIN / CREATININE UR INE RATIO Collected: 06/23/2024 11:03 AM Status: F Source: [facility] [employer] [facility] TYPE CODE TESTS RESULT OUT OF RANGE REFERENCE UNITS LAB 20 CREATININE, URINE 68.6 47.0-110.0 mg/dL LAB [id number] MICROALBUMIN, URINE <5.0 ug/mL LAB 6374 MICROALBUMIN/ CREATININE RATIO CALC NOT PERFORMED - [facility] Unable to Calculate Result Comment: ORDER COMMEN TS: Microalbumin concentrations <30 are considered normal, 30-300 are considered microalbuminuria (or risk of diabetic nephropathy), and >300 are considered clinical albuminuria (clinical nephropathy). Diabetes Care,27, Supplement 1, S79-14, 2003 Performed By: #### [id number] ## ## Plasma Processing Technician: FELIX SANTILLAN ([id number]) [facility] ([facility]) [address] [place] [address] CNOV Observed: 06/23/2024 9:40 AM Status: COMPLETED Source: [facility] Office Visit (GSTNOR) BAYLEE CORTES ([id number]) 1975 F Date Time Provider Department 06/23/24 9:40 AM DANA PERALTA During your visit today, we recorded the following information about you: Weight Height 112.8 kg 1.702 m Dana Peralta PA-C 06/23/2024 10:08 AM Signed CHIEF COMPLAINT: Patient presents with: Diabetic Gastroparesis : EGD done 8 yrs ago at [facility], no other testing This consult was requested by No ref. provider found for an opinion regarding diabetic gastroparesis. My final recommendations will be communicated to the requesting health care provider by way of the shared medical record for internal providers or letter via the [employer] for external providers. HPI: Baylee Cortes is a 48 year old female who presents for Diabetic Gastroparesis (EGD done 8 yrs ago at [facility], no other testing ). PMHx of T2DM Patient tells me that she has been dealing with Gastroparesis since about 2016. Was doing very well up until the last 3 months. Was on Ozempic for two years, her dose was increased in the last year. Was eating larger meals around the holidays which caused significant abdominal pain. Did end up fasting for a few days which helped symptoms. Also stopped her Ozempic due to insurance. Notes she feels normal today. Denies abdominal pain today and notes that bowel movements are regular for her. Endocrinology wanting her to start Trulicity but hasn't started. Seeing them on Sunday. Record Review: [facility] / Outside records reviewed. PAST MEDICAL HISTORY Diagnosis Date Gastroparesis Type 2 diabetes (HCC) PAST SURGICAL HISTORY Procedure Laterality Date BACK SURGERY HX EGD W/O [facility] SPEC VARICIES INJ 2017 [facility] TONSILLECTOMY AND ADENOIDECTOMY <AGE 14 Allergies: ALLERGIES Allergen Reactions Amoxicillin-Pot Cla* Hives Augmentin allergy per admission orders (= itching, hives LDRP/FLORIDALMA) 0816 11/26/2006JO Medications: FREESTYLE FREDO 3 SENSOR hilton CHANGE SENSOR EVERY 14 DAYS INVOKANA 100 mg tab Take 1 tablet by mouth every afternoon. metFORMIN (GLUCOPHAGE) 1,000 mg tablet 1,000 mg. naproxen sodium (ALEVE) 220 mg tablet 440 mg. omeprazole (PRILOSEC) 40 mg capsule Take 1 capsule by mouth every afternoon. pravastatin (PRAVACHOL) 10 mg tablet Take 1 tablet by mouth every afternoon. TRULICITY 1.5 mg/0.5 mL pen injector INJECT 1.5 MG UNDER THE SKIN 1 (ONE) TIME PER WEEK. (Patient not taking: Reported on 06/23/2024) FAMILY HISTORY Problem Relation Age of Onset Colon Cancer Paternal Uncle Employer And Job Title: None on file Years Of Education Completed: Not specified Marital Status: Social History Tobacco Use Smoking status: Never Smokeless tobacco: Never Vaping Use Vaping status: Some Days Substances: Nicotine Substance Use Topics Alcohol use: Not Currently Comment: Rare Drug use: Never Review of Systems: Review of Systems HENT: Positive for sore throat. Gastrointestinal: Positive for abdominal pain, diarrhea and nausea. Gas, Heartburn All other systems reviewed and are negative. Are you taking any blood thinners? No Physical Examination: Ht 5' 7 (1.70m) Wt 248 lb 11.2 oz (112.8kg) BMI 38.94 kg/(m2). Physical Exam Constitutional: Appearance: Normal appearance. She is obese. HENT: Head: Normocephalic and atraumatic. Eyes: General: No scleral icterus. Extraocular Movements: Extraocular movements intact. Conjunctiva/sclera: Conjunctivae normal. Pupils: Pupils are equal, round, and reactive to light. Cardiovascular: Rate and Rhythm: Normal rate and regular rhythm. Pulses: Normal pulses. Heart sounds: Normal heart sounds. Pulmonary: Effort: Pulmonary effort is normal. Breath sounds: Normal breath sounds. Abdominal: General: Abdomen is flat. Bowel sounds are normal. Palpations: Abdomen is soft. Tenderness: There is no abdominal tenderness. Musculoskeletal: General: Normal range of motion. Cervical back: Normal range of motion and neck supple. Skin: General: Skin is warm and dry. Coloration: Skin is not jaundiced. Neurological: General: No focal deficit present. Mental Status: She is alert and oriented to person, place, and time. Psychiatric: Mood and Affect: Mood normal. Behavior: Behavior normal. Thought Content: Thought content normal. Judgment: Judgment normal. Assessment/Plan (E11.43, K31.84) Diabetic gastroparesis (HCC) (HCC) (primary encounter diagnosis) (Z12.11) Screening for colon cancer 1. Diabetic gastroparesis (HCC) (HCC) -- Patient diagnosed with diabetic GP in 2017. Has been doing very well with the diet until she was started on Ozempic. Recently stopped this and has been feeling well. -- Would like to get updated GES -- Hold on Trulicity for now until GES is back. Pending results, may want to consider change in medications. -- Continue with strict GP diet, handout given today. - NM GASTRIC EMPTYING SOLID; Future 2. Screening for colon cancer -- Due for colonoscopy, order placed. - COLONOSCOPY SCREENING; Future Follow up in office PRN. Recommended to please call office/go to ER if fever, chills, chest pain, SOB, diarrhea, nausea, emesis, worsening abdominal pain, dehydration occurs I spent a total of 20 minutes on the date of the service which included preparing to see the patient, [id number] patient care, completing clinical documentation, obtaining and/or reviewing separately obtained history, performing a medically appropriate examination, counseling and educating the patient/family/caregiver, and ordering medications, tests, or procedures. Dana Peralta PA-C June 23, 2024 10:03 AM Dana Peralta PA-C 06/23/2024 10:01 AM Signed COLONOSCOPY BOWEL PREPARATION INSTRUCTIONS MiraLAX? Your doctor has scheduled you for a colonoscopy. To have a successful colonoscopy, you must have a clean colon, that is empty. A clean colon allows your doctor to see the entire colon AND diagnose issues like polyps or cancer. For doctors, a clean colon is like driving on a gabriela day; a dirty colon like driving in a storm. It is very important that you follow these instructions exactly, or your colonoscopy may not be as effective, could be canceled, and you may need to do the bowel prep and colonoscopy again. TRANSPORTATION REQUIREMENTS You are receiving IV sedation. For your safety, a responsible adult escort must accompany you to and from your procedure: Your adult escort MUST be present with you at check-in for your colonoscopy. Your adult escort MUST remain in the endoscopy area until you are discharged. Your adult escort MUST transport you home once you are discharged. You are NOT allowed to operate any form of transportation (i.e. drive a car, bicycle, etc) or leave the Endoscopy Center ALONE. It is not safe to do so. If you cannot meet these requirements, your procedure will be canceled. MEDICATION REQUIREMENTS For your safety, certain medications will need to be stopped or adjusted before you can have your procedure: BLOOD THINNERS: If you take blood thinners, such as Coumadin (warfarin), Plavix (clopidogrel), Ticlid (ticlopidine hydrochloride), Agrylin (anagrelide), Xarelto (Rivaroxaban), Pradaxa (Dabigatran), Eliquis (Apixaban), or Effient (Prasugrel), contact the physician who is prescribing these medications at least 2 weeks prior to your procedure to discuss any necessary adjustments. DIABETES: If you take medications for diabetes, your dosage may need to be adjusted. If you are being treated for diabetes with insulin, diabetic pills, or other injectable medications do not take your REGULAR dose after midnight on the day of your procedure. If you are taking any other types of insulin such as Lantus, Humalog, NPH (long-acting insulin), or 70/30 insulin, take half your normal dose the day before your procedure. DIABETES/WEIGHT MANAGEMENT: If you take medications for weight-loss, your dosage may need to be adjusted Contact the doctor who prescribes this medication for further instructions. If you take medications for weight-loss like semaglutide (Ozempic, Wegovy, Rybelsus), dulaglutide (Trulicity), liraglutide (Victoza, Saxenda), exenatide (Byetta, Bydureon), or lixisenatide (Adylyxin), stop your medication 1 week prior to your procedure. If you take medications like canagliflozin (Invokana), dapagliflozin (Farxiga, Forxiga), empagliflozin (Jardiance), stop your medication 3 days prior to your procedure. If you take ertugliflozin (Steglatro) stop your medication 4 days prior to your procedure. IRON: If you take iron pills, STOP them 1 week BEFORE your procedure, may resume after. OTHER MEDS: May take all other medications (including aspirin, antibiotics, water pills / diuretics like Lasix or Metolozone, blood pressure meds, etc.) at their usual scheduled time with water. DIET REQUIREMENTS The day before your colonoscopy, you may have a clear liquid diet (see below). The day of your colonoscopy, you may continue a clear liquid diet until 3 hours before your colonoscopy. Within 3 hours of your colonoscopy, take only any medications (as above) with a sip of water. Clear Liquid Diet Broth (chicken, beef or vegetable broth or bullion. Just the broth, no solids). Water Coffee or Tea (NO milk or creamer), but sugar and sugar substitutes are allowed. Clear liquids including clear, yellow, green, blue (NO red, NO orange, NO purple) Sodas / soft drinks; Gatorade or other sports drinks Fruit juice (strained; no-pulp); Alexei-Aid or flavored drinks Plain Jell-O or other gelatins Popsicles or hard candy Bowel prep can work differently from person to person. ? Some people's bowels move slowly and they may need different instructions. Please see your doctor in office or virtually for personalized bowel prep instructions if you have: BOWEL PREPARATION (MIRALAX/GATORADE) Split Dosing Bowel Prep: This means drinking your bowel prep in two doses. Split dosing helps clean your colon better and makes it less likely that your procedure will be canceled. You will need to purchase the following (no prescriptions are needed): 64 ounces Gatorade, Propel, Crystal Lite or other noncarbonated clear liquid sports drink (NOT red, orange, or purple). Diabetic patients buy sugar-free, e.g. Gatorade G2 4 Dulcolax laxative tablets containing 5mg bisacodyl each (do not buy the stool softener) 8.3 oz MiraLAX (238g) powder or generic polyethylene glycol 3350 (find in laxative aisle) The day before your colonoscopy mix 64 oz of the sports drink with 8.3 oz MiraLAX (238 g) in a pitcher. Stir or shake until MiraLAX completely dissolved. Chill if desired. On the evening before your colonoscopy: 5 PM take 4 Dulcolax laxative tablets with water by mouth. 6 PM drink the first half of the Gatorade/MiraLAX solution Drink one 8-ounce glass every 15 minutes. Six hours before your colonoscopy, drink the second half of the solution. Drink one 8-ounce glass every 15 minutes. You may continue a clear liquid diet until 3 hours before your colonoscopy. Bowel prep can work differently from person to person. Some people's bowels move slowly and they may need different instructions. Please see your doctor in office or virtually for personalized bowel prep instructions if you have: Medical condition that needs special accommodations Had a poor bowel prep results or failed bowel prep attempts in the past. Had difficulty with anesthesia during the procedure. FREQUENTLY ASKED QUESTIONS Q: What if I suffer from constipation? A: Recommend taking extra laxatives to resolve your constipation days prior to entering the bowel prep day. Q: What if have had prior poor preps results in past? A: Contact your physician as you will likely need additional bowel prep instructions. Q: What if I have motility issues like Parkinson's, MS (multiple sclerosis), wheelchair dependent, etc.? or on medications that slow colonic transit times (narcotics, gabapentin, anticholinergic medications etc.) A: Contact your physician as you will likely need extra time and additional laxatives to complete your bowel prep. Q: What if I cannot drink large volume of liquid? A: Start your prep 2-3 hours earlier to allow yourself more time to complete the entire prep. Q: What if I had bariatric surgery? Do I still have to complete the entire prep? A: Yes, gastric bypass surgery involves the stomach AND small bowel. You may need to drink smaller amounts, slower (may need more time to complete your bowel prep). Gastric bypass does not alter the length of your colon so you will need to complete the entire bowel prep, it may just take longer time to complete it. Q: What if I am on dialysis? A: Please consult your dry pan charger prior to scheduling to get instructions pertinent to you. In general, dialysis patients take the mktgly bowel prep and have the procedure same day of their dialysis (colonoscopy in AM, dialysis in PM). Q: How do I know if something is considered as clear liquid diet? A: If you can pour it in a glass and you can see through it, it is considered clear liquid Q: Can I eat nuts, seeds, beans, popcorn, dried fruits, vegetables AND fruits that have skin peel? A: No, you will need to not eat these items starting 3 days prior to procedure. Q: Can I take Uber/Lyft/taxi/bus home? A: An adult MUST be present with you at check-in for your colonoscopy and remain in the endoscopy area until you are discharged. You can take Uber home only if this adult escort is with you at check in, remain in the endoscopy area until you are discharged, and takes the Uber with you to home. Q: Can I ?sleep it off? here and drive myself home? A: No, you must have an adult with you at time of procedure check in, remain in the endoscopy center during your procedure, and drive you home. You cannot drive a vehicle after your procedure the rest of the day. Q: What if I can't finish my bowel prep? A: If you cannot complete your entire bowel prep, there is high likelihood that your colonoscopy will need to be rescheduled due to inadequate prep quality. Allergies As of Date: 06/23/2024 Noted Allergy Reaction AMOXICILLIN-POT CLAVULANATE 06/23/2024 4 - Hives Comments: Augmentin allergy per admission orders (= itching, hives LDRP/FLORIDALMA) 0816 11/26/2006JO Date Reviewed: 06/23/2024 Reviewed by: Dana Peralta PA-C - Fully Assessed Reason for Visit: Diabetic Gastroparesis [Other] Cmt: EGD done 8 yrs ago at [facility], no other testing Primary Visit Diagnosis:Diabetic gastroparesis (HCC) (HCC) [E11.43, K31.84] Other Visit Diagnosis:Screening for colon cancer [Z12.11] Order(s):GA GASTRIC EMPTYING SOLID [8653725] Order #: [id number] FUTURE COLONOSCOPY SCREENING [GI51] Order #: [id number] FUTURE Prescriptions as of 06/23/2024 - FREESTYLE FREDO 3 SENSOR hilton CHANGE SENSOR EVERY 14 DAYS - INVOKANA 100 mg tab Take 1 tablet by mouth every afternoon. - TRULICITY 1.5 mg/0.5 mL pen injector INJECT 1.5 MG UNDER THE SKIN 1 (ONE) TIME PER WEEK. - metFORMIN (GLUCOPHAGE) 1,000 mg tablet 1,000 mg. - naproxen sodium (ALEVE) 220 mg tablet 440 mg. - omeprazole (PRILOSEC) 40 mg capsule Take 1 capsule by mouth every afternoon. - pravastatin (PRAVACHOL) 10 mg tablet Take 1 tablet by mouth every afternoon. Medication notes this encounter TRULICITY 1.5 MG/0.5 ML SUBCUTANEOUS PEN INJECTOR >> Kaylyn Gracia MA 06/23/2024 9:46 AM >> KAYLYN GRACIA SunJun 23, 2024 9:46 AM Hasn't started yet Problem List As Of Date: 06/23/2024 (None) Other instructions from your clinician: COLONOSCOPY BOWEL PREPARATION INSTRUCTIONS MiraLAX? Your doctor has scheduled you for a colonoscopy. To have a successful colonoscopy, you must have a clean colon, that is empty. A clean colon allows your doctor to see the entire colon AND diagnose issues like polyps or cancer. For doctors, a clean colon is like driving on a gabriela day; a dirty colon like driving in a storm. It is very important that you follow these instructions exactly, or your colonoscopy may not be as effective, could be canceled, and you may need to do the bowel prep and colonoscopy again. TRANSPORTATION REQUIREMENTS You are receiving IV sedation. For your safety, a responsible adult escort must accompany you to and from your procedure: Your adult escort MUST be present with you at check-in for your colonoscopy. Your adult escort MUST remain in the endoscopy area until you are discharged. Your adult escort MUST transport you home once you are discharged. You are NOT allowed to operate any form of transportation (i.e. drive a car, bicycle, etc) or leave the Endoscopy Center ALONE. It is not safe to do so. If you cannot meet these requirements, your procedure will be canceled. MEDICATION REQUIREMENTS For your safety, certain medications will need to be stopped or adjusted before you can have your procedure: BLOOD THINNERS: If you take blood thinners, such as Coumadin (warfarin), Plavix (clopidogrel), Ticlid (ticlopidine hydrochloride), Agrylin (anagrelide), Xarelto (Rivaroxaban), Pradaxa (Dabigatran), Eliquis (Apixaban), or Effient (Prasugrel), contact the physician who is prescribing these medications at least 2 weeks prior to your procedure to discuss any necessary adjustments. DIABETES: If you take medications for diabetes, your dosage may need to be adjusted. If you are being treated for diabetes with insulin, diabetic pills, or other injectable medications do not take your REGULAR dose after midnight on the day of your procedure. If you are taking any other types of insulin such as Lantus, Humalog, NPH (long-acting insulin), or 70/30 insulin, take half your normal dose the day before your procedure. DIABETES/WEIGHT MANAGEMENT: If you take medications for weight-loss, your dosage may need to be adjusted Contact the doctor who prescribes this medication for further instructions. If you take medications for weight-loss like semaglutide (Ozempic, Wegovy, Rybelsus), dulaglutide (Trulicity), liraglutide (Victoza, Saxenda), exenatide (Byetta, Bydureon), or lixisenatide (Adylyxin), stop your medication 1 week prior to your procedure. If you take medications like canagliflozin (Invokana), dapagliflozin (Farxiga, Forxiga), empagliflozin (Jardiance), stop your medication 3 days prior to your procedure. If you take ertugliflozin (Steglatro) stop your medication 4 days prior to your procedure. IRON: If you take iron pills, STOP them 1 week BEFORE your procedure, may resume after. OTHER MEDS: May take all other medications (including aspirin, antibiotics, water pills / diuretics like Lasix or Metolozone, blood pressure meds, etc.) at their usual scheduled time with water. DIET REQUIREMENTS The day before your colonoscopy, you may have a clear liquid diet (see below). The day of your colonoscopy, you may continue a clear liquid diet until 3 hours before your colonoscopy. Within 3 hours of your colonoscopy, take only any medications (as above) with a sip of water. Clear Liquid Diet Broth (chicken, beef or vegetable broth or bullion. Just the broth, no solids). Water Coffee or Tea (NO milk or creamer), but sugar and sugar substitutes are allowed. Clear liquids including clear, yellow, green, blue (NO red, NO orange, NO purple) Sodas / soft drinks; Gatorade or other sports drinks Fruit juice (strained; no-pulp); Alexei-Aid or flavored drinks Plain Jell-O or other gelatins Popsicles or hard candy Bowel prep can work differently from person to person. ? Some people's bowels move slowly and they may need different instructions. Please see your doctor in office or virtually for personalized bowel prep instructions if you have: BOWEL PREPARATION (MIRALAX/GATORADE) Split Dosing Bowel Prep: This means drinking your bowel prep in two doses. Split dosing helps clean your colon better and makes it less likely that your procedure will be canceled. You will need to purchase the following (no prescriptions are needed): 64 ounces Gatorade, Propel, Crystal Lite or other noncarbonated clear liquid sports drink (NOT red, orange, or purple). Diabetic patients buy sugar-free, e.g. Gatorade G2 4 Dulcolax laxative tablets containing 5mg bisacodyl each (do not buy the stool softener) 8.3 oz MiraLAX (238g) powder or generic polyethylene glycol 3350 (find in laxative aisle) The day before your colonoscopy mix 64 oz of the sports drink with 8.3 oz MiraLAX (238 g) in a pitcher. Stir or shake until MiraLAX completely dissolved. Chill if desired. On the evening before your colonoscopy: 5 PM take 4 Dulcolax laxative tablets with water by mouth. 6 PM drink the first half of the Gatorade/MiraLAX solution Drink one 8-ounce glass every 15 minutes. Six hours before your colonoscopy, drink the second half of the solution. Drink one 8-ounce glass every 15 minutes. You may continue a clear liquid diet until 3 hours before your colonoscopy. Bowel prep can work differently from person to person. Some people's bowels move slowly and they may need different instructions. Please see your doctor in office or virtually for personalized bowel prep instructions if you have: Medical condition that needs special accommodations Had a poor bowel prep results or failed bowel prep attempts in the past. Had difficulty with anesthesia during the procedure. FREQUENTLY ASKED QUESTIONS Q: What if I suffer from constipation? A: Recommend taking extra laxatives to resolve your constipation days prior to entering the bowel prep day. Q: What if have had prior poor preps results in past? A: Contact your physician as you will likely need additional bowel prep instructions. Q: What if I have motility issues like Parkinson's, MS (multiple sclerosis), wheelchair dependent, etc.? or on medications that slow colonic transit times (narcotics, gabapentin, anticholinergic medications etc.) A: Contact your physician as you will likely need extra time and additional laxatives to complete your bowel prep. Q: What if I cannot drink large volume of liquid? A: Start your prep 2-3 hours earlier to allow yourself more time to complete the entire prep. Q: What if I had bariatric surgery? Do I still have to complete the entire prep? A: Yes, gastric bypass surgery involves the stomach AND small bowel. You may need to drink smaller amounts, slower (may need more time to complete your bowel prep). Gastric bypass does not alter the length of your colon so you will need to complete the entire bowel prep, it may just take longer time to complete it. Q: What if I am on dialysis? A: Please consult your dry pan charger prior to scheduling to get instructions pertinent to you. In general, dialysis patients take the Golytely bowel prep and have the procedure same day of their dialysis (colonoscopy in AM, dialysis in PM). Q: How do I know if something is considered as clear liquid diet? A: If you can pour it in a glass and you can see through it, it is considered clear liquid Q: Can I eat nuts, seeds, beans, popcorn, dried fruits, vegetables AND fruits that have skin peel? A: No, you will need to not eat these items starting 3 days prior to procedure. Q: Can I take Uber/Lyft/taxi/bus home? A: An adult MUST be present with you at check-in for your colonoscopy and remain in the endoscopy area until you are discharged. You can take Uber home only if this adult escort is with you at check in, remain in the endoscopy area until you are discharged, and takes the Uber with you to home. Q: Can I ?sleep it off? here and drive myself home? A: No, you must have an adult with you at time of procedure check in, remain in the endoscopy center during your procedure, and drive you home. You cannot drive a vehicle after your procedure the rest of the day. Q: What if I can't finish my bowel prep? A: If you cannot complete your entire bowel prep, there is high likelihood that your colonoscopy will need to be rescheduled due to inadequate prep quality. Medications Discontinued During This Encounter Prescriptions - albuterol HFA (PROVENTIL HFA, VENTOLIN HFA) 90 mcg/actuation inhaler (Discontinued) inhale 2 puffs every 6 hours as needed for shortness of breath or wheezing Disposition: Return if symptoms worsen or fail to improve. Follow-up and Disposition History for Encounter Date Provider Department Center 06/23/2024 [id number]-GQYBITDANA PERALTA Encounter Status:Closed by DANA PERALTA on 06/23/24 PROGRESS Observed: 06/23/2024 9:38 AM Status: COMPLETED Source: [facility] ID: [id number] Author: DANA PERALTA PA-C Service: ? Author Type: Physician Leisure Travel Agent Type: Progress Notes Filed: 06/23/2024 10:08 Note Text: CHIEF COMPLAINT: Patient presents with: Diabetic Gastroparesis : EGD done 8 yrs ago at [facility], no other testing This consult was requested by No ref. provider found for an opinion regarding diabetic gastroparesis. My final recommendations will be communicated to the requesting health care provider by way of the shared medical record for internal providers or letter via the [employer] for external providers. HPI: Baylee Cortes is a 48 year old female who presents for Diabetic Gastroparesis (EGD done 8 yrs ago at [facility], no other testing ). PMHx of T2DM Patient tells me that she has been dealing with Gastroparesis since about 2016. Was doing very well up until the last 3 months. Was on Ozempic for two years, her dose was increased in the last year. Was eating larger meals around the holidays which caused significant abdominal pain. Did end up fasting for a few days which helped symptoms. Also stopped her Ozempic due to insurance. Notes she feels normal today. Denies abdominal pain today and notes that bowel movements are regular for her. Endocrinology wanting her to start Trulicity but hasn't started. Seeing them on Sunday. Record Review: [facility] / Outside records reviewed. PAST MEDICAL HISTORY Diagnosis Date Gastroparesis Type 2 diabetes (HCC) PAST SURGICAL HISTORY Procedure Laterality Date BACK SURGERY HX EGD W/O BRSH SPEC VARICIES INJ 2016 [facility] TONSILLECTOMY AND ADENOIDECTOMY <AGE 14 Allergies: ALLERGIES Allergen Reactions Amoxicillin-Pot Cla* Hives Augmentin allergy per admission orders (= itching, hives LDRP/FLORIDALMA) 0816 11/26/2006JO Medications: FREESTYLE FREDO 3 SENSOR hilton CHANGE SENSOR EVERY 14 DAYS INVOKANA 100 mg tab Take 1 tablet by mouth every afternoon. metFORMIN (GLUCOPHAGE) 1,000 mg tablet 1,000 mg. naproxen sodium (ALEVE) 220 mg tablet 440 mg. omeprazole (PRILOSEC) 40 mg capsule Take 1 capsule by mouth every afternoon. pravastatin (PRAVACHOL) 10 mg tablet Take 1 tablet by mouth every afternoon. TRULICITY 1.5 mg/0.5 mL pen injector INJECT 1.5 MG UNDER THE SKIN 1 (ONE) TIME PER WEEK. (Patient not taking: Reported on 06/23/2024) FAMILY HISTORY Problem Relation Age of Onset Colon Cancer Paternal Uncle Employer And Job Title: None on file Years Of Education Completed: Not specified Marital Status: Social History Tobacco Use Smoking status: Never Smokeless tobacco: Never Vaping Use Vaping status: Some Days Substances: Nicotine Substance Use Topics Alcohol use: Not Currently Comment: Rare Drug use: Never Review of Systems: Review of Systems HENT: Positive for sore throat. Gastrointestinal: Positive for abdominal pain, diarrhea and nausea. Gas, Heartburn All other systems reviewed and are negative. Are you taking any blood thinners? No Physical Examination: Ht 5' 7 (1.70m) Wt 248 lb 11.2 oz (112.8kg) BMI 38.94 kg/(m2). Physical Exam Constitutional: Appearance: Normal appearance. She is obese. HENT: Head: Normocephalic and atraumatic. Eyes: General: No scleral icterus. Extraocular Movements: Extraocular movements intact. Conjunctiva/sclera: Conjunctivae normal. Pupils: Pupils are equal, round, and reactive to light. Cardiovascular: Rate and Rhythm: Normal rate and regular rhythm. Pulses: Normal pulses. Heart sounds: Normal heart sounds. Pulmonary: Effort: Pulmonary effort is normal. Breath sounds: Normal breath sounds. Abdominal: General: Abdomen is flat. Bowel sounds are normal. Palpations: Abdomen is soft. Tenderness: There is no abdominal tenderness. Musculoskeletal: General: Normal range of motion. Cervical back: Normal range of motion and neck supple. Skin: General: Skin is warm and dry. Coloration: Skin is not jaundiced. Neurological: General: No focal deficit present. Mental Status: She is alert and oriented to person, place, and time. Psychiatric: Mood and Affect: Mood normal. Behavior: Behavior normal. Thought Content: Thought content normal. Judgment: Judgment normal. Assessment/Plan (E11.43, K31.84) Diabetic gastroparesis (HCC) (HCC) (primary encounter diagnosis) (Z12.11) Screening for colon cancer 1. Diabetic gastroparesis (HCC) (HCC) -- Patient diagnosed with diabetic GP in 2017. Has been doing very well with the diet until she was started on Ozempic. Recently stopped this and has been feeling well. -- Would like to get updated GES -- Hold on Trulicity for now until GES is back. Pending results, may want to consider change in medications. -- Continue with strict GP diet, handout given today. - NM GASTRIC EMPTYING SOLID; Future 2. Screening for colon cancer -- Due for colonoscopy, order placed. - COLONOSCOPY SCREENING; Future Follow up in office PRN. Recommended to please call office/go to ER if fever, chills, chest pain, SOB, diarrhea, nausea, emesis, worsening abdominal pain, dehydration occurs I spent a total of 20 minutes on the date of the service which included preparing to see the patient, pyag-ws-bdol patient care, completing clinical documentation, obtaining and/or reviewing separately obtained history, performing a medically appropriate examination, counseling and educating the patient/family/caregiver, and ordering medications, tests, or procedures. Dana Peralta PA-C June 23, 2024 10:03 AM 29 Observed: 06/18/2024 9:36 AM Status: COMPLETED Source: [employer] [facility] Addended by: CELESTE MONROY on: 06/18/2024 09:36 AM Modules accepted: Orders 36 Observed: 06/18/2024 7:30 AM Status: COMPLETED Source: [employer] [facility] Please see TE regards this f rom my chart 36 Observed: 06/17/2024 12:47 PM Status: COMPLETED Source: [employer] [facility] Pt called in to speak with anitra nowak and is requesting a call back. Pt states she does not understand why she is not meeting criteria. Pt states she has been on this medication for over two years. Pt states she was on Victoza and was taken off of it by Dr. Ramos when she was changed over to the Ozempic because he thought she would get better results which Pt states she has. Please call Pt to advise 36 Observed: 06/17/2024 12:23 PM Status: COMPLETED [email or web address] Does not meet criteria for o zempic continuation re: the same Due to insurance guidelines will need to transition to Trulicity to continue w/ GLP treatment Notify pt and ensure she's aware then I will send rx 36 Observed: 06/17/2024 11:10 AM Status: COMPLETED Source: [employer] [facility] PA has been denied as follow ing reason. Coverage is provided when the member meets all the followin. Member has a history of at least 120 days of therapy with THREE preferred medications in this UPDL category. ONE of the 120 day trials must be with a drug in the same drug class, Byetta (5 mcg and 10 mcg), Victoza (18 MG/3 ML PEN) (Brand name is preferred by the plan) or Trulicity (0.75 mg, 1.5 mg, 3 mg, and 4.5 mg)]. Please advise 36 Observed: 06/17/2024 10:53 AM Status: COMPLETED Source: [employer] [facility] Patient called office statin g the insurance is requesting a peer to peer to answer some additional questions. Patient has missed dose by a few days already. Their phone number is [phone]. Please advise. 36 Observed: 06/17/2024 10:31 AM Status: COMPLETED Source: [employer] [facility] Name of caller: Wendi Contact phone number: [phone] Relationship to Patient: patient Provider: JOSELITO Monroy [place] [facility] [place] Chief Complaint/Reason for Call: Pt states she is calling for a status of the prior auth for the Ozempic. Pt states she needs an update as she is due to take this again on Sunday. Please review. Best time of day caller can be reached: any Patient advised that office/PCP has 24-48 business hours to return their call: Yes [phone] Observed: 06/16/2024 10:04 AM Status: COMPLETED Source: [employer] [facility] Please see another TE regard s this [id number] Observed: 06/16/2024 10:03 AM Status: COMPLETED Source: [employer] [facility] PA initiated via epic ALLERGIES DATE TYPE / CODE NAME / CODE REACTION SEVERITY SOURCE 06/23/2024 DRUG/[id number](S NOMED CT) AMOXICILLIN-POT CLAVULANATE SIOMARAES [facility] ENCOUNTERS ADMIT/DISCHARGE ACCOUNT NUMBER ADMITTING ENCOUNTER CLASS LOCATION SOURCE 02/24/2025/02/25/20 [id number] Ambulatory Buildin [id number] [facility] 02/21/2025/02/22/20 [id number] Ambulatory Buildin [id number] [facility] 11/19/2024/11/22/19 25 [id number] ELIZABETH IZAGUIRRE Inpatient Encounter [place] Quispe nRoom: 4220Bed: 01 [facility] 10/30/2024/10/31/19 [id number] Ambulatory Buildin [id number] [facility] 07/08/2024 [id number] [facility] [place] [facility] 06/27/2024 [id number] Ambulatory Building:Unkn own [facility] 06/25/2024/06/25/19 [id number] Ambulatory Buildin [id number] [facility] 06/25/2024 [id number] Ambulatory Building:Unkn own [facility] 06/23/2024/06/23/19 [id number] Ambulatory Buildin [id number] [facility] 06/23/2024/06/23/19 [id number] [facility]ulatory [facility] PAYERS ENCOUNTER GUARANTOR PAYER SUBSCRIBER SOURCE 02/24/2025 Primary Insurance:[employer] MEDICAIDPolicy Number: [id number] Date:8387-97-33Hlca Name:Medicaid O WENDI KANDICE: [id number] [address] 02/21/2025 Primary Insurance:[employer] MEDICAIDPolicy Number: [id number] Date:4344-13-13Ijli Name:Medicaid HMO WENDI KANDICE: [id number] [address] 11/19/2024 Primary Insurance:[employer] MEDICAIDPolicy Number: [id number] Date:5929-13-39Tixt Name:Moi BAYLEE KANDICE: [id number] [place] 689[address] [facility] 10/30/2024 Primary Insurance:[employer] MEDICAIDPolicy Number: [id number] Date:6961-40-01Mjly Name:Medicaid O WENDI KANDICE: [id number] [place] [address] [facility] 07/08/2024 Primary Insurance:[employer] MEDICAIDPolicy Number: [id number] Date:6006-86-04Buci Name:Moi CORTESB: [id number] [place] [address] [facility] 06/25/2024 Primary Insurance:[employer] MEDICAIDPolicy Number: [id number] Date:2973-87-85Szyz Name:Medicaid HMO WENDI MARTINEZTRICEB: [id number] [place] [address] [facility] 06/23/2024 Primary Insurance:[employer] MEDICAIDPolicy Number: [id number] Date:5806-86-98Ytuf Name:Medicaid HMO WENDI MARTINEZTRICEB: [id number] [place] [address] [facility] 06/23/2024 Primary Insurance:[employer] MEDICAIDPolicy Number: [id number] Date:0482-27-19Apyj Name:Moi MARTINEZLAINEY: [id number] [place] [address] [facility]
[2025-02-26 07:38] VITALS: BMI 35.6
[2025-03-03 11:49] LABS: Hematocrit 40.7 % (37-47); Hemoglobin 14.0 g/dL (12.0-15.0); Immature Granulocytes Count 0.020 X10^3/uL (0.0-0.0); Mean Corp Hgb Conc 34.4 g/dL (32-36); Mean Corpuscular Volume 90.2 fL (81-99); Mean Platelet Vol. 10.1 fl (6.2-12.0); NRBC Flagged by Analyzer 0 % (0-5); Platelet Count 254 K/mm3 (150-450); RBC Distribution Width CV 12.4 % (11.6-14.6); RBC Distribution Width SD 40.5 fl (35.1-43.9); Red Blood Count 4.51 M/mm3 (4.2-5.4); White Blood Count 7.4 K/mm3 (4.4-11.0)
[2025-03-03 12:48] LABS: AST(SGOT) 17 U/L (<=31); Alanine Aminotransfer ALT/SGPT 15 U/L (<=34); Albumin, Serum 4.1 g/dL (3.5-5.0); Alkaline Phosphatase 68 U/L (35-104); Anion Gap 12 (5-15); BUN 10 mg/dL (4-19); BUN/Creat Ratio 11.8 RATIO (10-20); Calcium,Total 9.7 mg/dL (7.6-11.0); Carbon Dioxide 22.6 mmol/L (21.0-32.0); Chloride 102 mmol/L (98-108); Globulin 3.2 g/dL (2.2-4.2); Glucose 154 mg/dL (70-99); Potassium 4.7 mmol/L (3.3-5.1); Vitamin D,25 Hydroxy 38.2 ng/mL (30-100)
== END | disposition home or self-care (01) ==
LOC: LAB 11:22
PROVIDERS: PCP Internal Medicine; Referring Provider Nurse Practitioner Family; Visit Provider Nurse Practitioner Family
DX: I25.10 Atherosclerotic heart disease of native coronary artery without angina pectoris (principal); E11.69 Type 2 diabetes mellitus with other specified complication; Z79.4 Long term (current) use of insulin; R53.81 Other malaise; R53.83 Other fatigue; E55.9 Vitamin D deficiency, unspecified; R93.89 Abnormal findings on diagnostic imaging of other specified body structures
CPT/HCPCS: 36415; 80053; 82306; 84443; 85025

== ENCOUNTER → 2025-03-25 | Outpatient (CLI) | payer MEDICAID, SELFPAY ==
[2025-02-26 07:38] VITALS: BMI 35.6
--- NOTE | 2025-03-25 10:02 | ECHOL_ITS ---
Reason For Study Reason For Study: CHF Procedure This was a limited 2D transthoracic echocardiogram. Myocardial strain analysis was performed in this exam to aid in the assessment of cardiac function. Exam performed in department. Left Ventricle Normal LV size. The global longitudinal strain = -17.5 % (normal). The left ventricular ejection fraction is 55 %. No regional wall motion abnormalities noted. Right Ventricle Normal RV size. Normal systolic function. Atria Normal left atrium. Normal right atrium. Mitral Valve Normal mitral valve. Tricuspid Valve Normal tricuspid valve. Aortic Valve Trisinus/trileaflet aortic valve. Pulmonic Valve Normal pulmonic valve. Great Vessels Normal aortic root. The pulmonary artery is normal size. Normal inferior vena cava. Pericardium/Pleural No pericardial effusion. MMode/2D Measurements & Calculations LVIDd: 3.9 cm IVSd: 1.1 cm LAV(MOD-sp4): 26.0 ml LVIDs: 2.7 cm LVPWd: 0.92 cm FS: 32.3 % LVAd ap4: 28.8 cm2 LVAd ap2: 29.5 cm2 SV(MOD-sp4): 44.5 ml LVLd ap4: 7.7 cm LVLd ap2: 8.1 cm SI(MOD-sp4): 21.2 ml/m2 EDV(MOD-sp4): 87.7 ml EDV(MOD-sp2): 91.2 ml EDV(sp4-el): 91.5 ml EDV(sp2-el): 91.5 ml LVAs ap4: 18.6 cm2 LVAs ap2: 17.1 cm2 LVLs ap4: 6.7 cm LVLs ap2: 6.4 cm ESV(MOD-sp4): 43.2 ml ESV(MOD-sp2): 40.3 ml ESV(sp4-el): 43.5 ml ESV(sp2-el): 39.1 ml EF(MOD-sp4): 50.8 % EF(MOD-sp2): 55.8 % EF(sp4-el): 52.4 % SV(MOD-sp2): 50.8 ml SV(sp4-el): 48.0 ml LA A4 area: 12.4 cm2 SI(MOD-sp2): 24.2 ml/m2 RA A4 area: 8.1 cm2 ECHO/Echo, Limited Study Interpretation Summary Normal LV size. The global longitudinal strain = -17.5 % (normal). The left ventricular ejection fraction is 55 %. Structurally normal valves. Ordering Physician: Isaiah Zamorano Referring Physician: Isaiah Zamorano Performed By: Alexsander Mabry RCS
== END | disposition home or self-care (01) ==
LOC: CVS 10:02
PROVIDERS: PCP Internal Medicine; Referring Provider Nurse Practitioner Family; Visit Provider Nurse Practitioner Family
DX: E78.2 Mixed hyperlipidemia (principal); I50.9 Heart failure, unspecified; E11.69 Type 2 diabetes mellitus with other specified complication; Z79.4 Long term (current) use of insulin; I25.5 Ischemic cardiomyopathy; Z95.5 Presence of coronary angioplasty implant and graft
CPT/HCPCS: 93308